=== PATIENT | male | born 2000 | race Caucasian/White ===

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

== ENCOUNTER 2024-04-29 01:37 | Observation (INO) ==
--- NOTE | 2024-04-29 01:56 | Emergency Department Note ---
History of Present Illness General Chief complaint: Abdominal Pain Stated complaint: ABDOMINAL PAIN,NAUSEA,RESP ISSUES Time Seen by Provider: 04/29/24 01:46 History of Present Illness Maximum Pain Intensity: 9 This is a 23-year-old male presenting to the emergency department from home for evaluation of abdominal pain, nausea, vomiting, and diarrhea. 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 Patient symptoms began with some mild nausea throughout the day, however he awoke about 1 hour ago with profound diarrhea and vomiting. Patient is finishing a course of Augmentin for sinus congestion. No recent travel. He took several [id number] antidiarrheal agents, but continues with 9/10 pain. He does have a history of appendectomy when he was a pediatric patient. No fever or chills. Patient has a previous history of alcohol abuse, however he has not had alcohol in the past 3 months after starting a new relationship with his girlfriend. Home Medications Medication Instructions Recorded Confirmed Type benzonatate 200 mg capsule 200 mg PO TID PRN Cough 04/29/24 04/29/24 History buspirone 5 mg tablet 5 mg PO QID PRN Anxiety 04/29/24 04/29/24 History dextroamphetamine-amphetamine ER 10 mg PO QAM 04/29/24 04/29/24 History 10 mg 24hr capsule,extend release escitalopram oxalate 20 mg tablet 20 mg PO QAM 04/29/24 04/29/24 History sumatriptan succinate 25 mg tablet 25 mg PO UD PRN Migraine Headache 04/29/24 04/29/24 History Allergies Allergy/AdvReac Type Severity Reaction Status Date / Time metoclopramide Allergy Mild Verified 11/28/22 08:32 Past Med/Surg History Problem List (Updated 04/29/24 @ 05:27 by Thomas Dean PA-C) Nausea, vomiting, and diarrhea (Acute) Enteritis due to Clostridium difficile (Acute) Acute generalized abdominal pain (Acute) Acute pancreatitis (Acute) Pancreatitis Abdominal pain Anxiety (Chronic) ADD (attention deficit disorder) (Chronic) Nevus of back Benign paroxysmal positional nystagmus (Acute) Surgical History History of appendectomy Family History Mother No problems noted. 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 Feels Safe at Home: Yes Safety Concerns: Feels Safe At This Time Diet: regular caffeine: No Dental Care, Regularly: No Physical Activity Frequency: 3-4 Times per Week Seatbelt Use: always Sunscreen Use: Yes Assistive Devices: None Review of Systems A total of 10 systems reviewed and were otherwise negative Physical Exam Vital Signs Vital Signs - 24 hr 04/29/24 01:38 04/29/24 01:43 04/29/24 01:51 Temperature 36.7 C Temperature Source Temporal Artery Scan Pulse Rate 113 H Pulse Rate from SpO2 Sensor Pulse Rhythm Regular Pulse Strength Normal Respiratory Rate 20 Respiratory Effort / Characteristics Non-Labored Non-Labored Spontaneous Respiratory Depth Normal Normal Respiratory Pattern Regular Blood Pressure 121/80 Blood Pressure Mean 93 Blood Pressure Position Sitting Pulse Oximetry 97 Oxygen Delivery Method Room Air Room Air Room Air Sepsis Recent Fever Within 48 Hours No Sepsis New/Unexplained Change in Mental Status N/A Sepsis Action Taken by Nursing No Action Required 04/29/24 02:39 04/29/24 03:00 04/29/24 03:03 Temperature Temperature Source Pulse Rate 96 H 91 H 99 H Pulse Rate from SpO2 Sensor 93 H 97 H Pulse Rhythm Pulse Strength Respiratory Rate 18 17 Respiratory Effort / Characteristics Respiratory Depth Respiratory Pattern Blood Pressure 132/84 Blood Pressure Mean 100 Blood Pressure Position Pulse Oximetry 96 96 Oxygen Delivery Method Room Air Room Air Sepsis Recent Fever Within 48 Hours Sepsis New/Unexplained Change in Mental Status Sepsis Action Taken by Nursing 04/29/24 03:42 Temperature Temperature Source Pulse Rate 84 Pulse Rate from SpO2 Sensor 85 Pulse Rhythm Pulse Strength Respiratory Rate 17 Respiratory Effort / Characteristics Respiratory Depth Respiratory Pattern Blood Pressure 128/81 Blood Pressure Mean 96 Blood Pressure Position Pulse Oximetry 96 Oxygen Delivery Method Room Air Sepsis Recent Fever Within 48 Hours Sepsis New/Unexplained Change in Mental Status Sepsis Action Taken by Nursing VITALS: Vitals are noted on the nurse's note and reviewed by myself. Vital signs stable. GENERAL: Well-developed, well-nourished, white male, who is uncomfortable appearing and holding an emesis bag HEAD: Normocephalic atraumatic. EARS: External ear normal. External auditory canals clear, tympanic membranes pearly dangelo without erythema or effusion bilaterally. EYES: Pupils equal round and reactive to light and accommodation. Conjunctivae without injection, sclerae without icterus. Extraocular movements intact. NOSE: Patent, turbinates without inflammation or discharge. MOUTH: Mucous membranes moist. Tonsils are not enlarged. Pharynx without erythema, blood, or exudate. Uvula midline. Airway patent. NECK: Supple without nuchal rigidity. No lymphadenopathy. No thyromegaly. Cervical spine is nontender. HEART: Regular rate and rhythm without murmurs gallops or rubs. LUNGS: Clear to auscultation bilaterally without wheezes, rales or rhonchi. No retractions or accessory muscle use. ABDOMEN: Positive normal bowel sounds x 4. Soft, nontender, without masses or organomegaly. No guarding or rebound tenderness. MUSCULOSKELETAL: No muscle atrophy, erythema, or edema noted. Full range of motion in all extremities. Course Administered Medications Lyon Syrup (Lyon Syrup 5 Ml Udp) 5 ml PO Q6 SARAHI Stop: 05/09/24 04:59 Last Admin: 04/29/24 05:32 Dose: 5 ml Documented By: CORETTA Lactated Ringer's (Lr) 1,000 mls @ 200 mls/hr IV .Q5H ONE Stop: 04/29/24 10:04 Last Admin: 04/29/24 05:33 Dose: 200 mls/hr Documented By: CORETTA Vancomycin HCl (Vancomycin Hcl 125 Mg/2.5ml Soln) 125 mg PO Q6 SARAHI; Protocol Stop: 05/09/24 04:59 Last Admin: 04/29/24 05:33 Dose: 125 mg Documented By: CORETTA Discontinued Medications Sodium Chloride (Nss) 1,000 mls @ 999 mls/hr IV .Q1H1M ONE Stop: 04/29/24 02:51 Last Infusion: 04/29/24 03:07 Dose: Infused Documented By: Admin: 04/29/24 02:06 Dose: 999 mls/hr Documented By: SAMMI Pantoprazole Sodium (Protonix) 40 mg in 10 mls @ 5 mls/min IV NOW ONE Stop: 04/29/24 01:52 Last Admin: 04/29/24 02:06 Dose: 5 mls/min Documented By: SAMMI Sodium Chloride (Nss) 1,000 mls @ 999 mls/hr IV .Q1H1M ONE Stop: 04/29/24 04:22 Last Infusion: 04/29/24 04:57 Dose: Infused Documented By: Admin: 04/29/24 03:27 Dose: 999 mls/hr Documented By: CORETTA Thiamine HCl 100 mg/ Syringe 10 mls @ 2 mls/min IV NOW STA Stop: 04/29/24 04:03 Last Admin: 04/29/24 04:32 Dose: 2 mls/min Documented By: CORETTA Morphine Sulfate (Morphine Sulfate 4 Mg/Ml 1 Ml Carp\Vial) 4 mg IV NOW STA Stop: 04/29/24 01:52 Last Admin: 04/29/24 02:05 Dose: 4 mg Documented By: SAMMI Ondansetron HCl (Ondansetron Inj 2 Mg/Ml 2 Ml Vial) 4 mg IV NOW STA Stop: 04/29/24 01:52 Last Admin: 04/29/24 02:05 Dose: 4 mg Documented By: SAMMI Medical Decision Making Differential Diagnosis Differential diagnosis: Etiologies such as gastroenteritis, food borne illness, infections, appendicitis, diverticulitis, inflammatory bowel disease, obstruction, GI bleed, biliary pathology, cardiac process, intracranial process, as well as others were entertained. Laboratory Data 04/29/24 02:06 04/29/24 02:06 Lab Results 04/29/24 04/29/24 04/29/24 Range/Units 02:06 02:07 02:53 WBC 10.84 H (4.8-10.8) K/ul RBC 4.95 (4.70-6.10) M/uL Hgb 14.0 (14.0-18.0) g/dl Hct 40.6 L (42.0-52.0) % MCV 82.0 (80.0-100.0) fL MCH 28.3 (25.0-34.0) pg MCHC 34.5 (32.0-36.0) g/dL RDW Std Deviation 38.5 (36.4-46.3) fL RDW Coeff of Cristo 12.9 (11.5-14.5) % Plt Count 216 (130-400) K/uL MPV 11.0 (9.4-12.4) fL Immature Gran % (Auto) 0.3 % Neut % (Auto) 77.5 % Lymph % (Auto) 14.1 % [place] % (Auto) 7.0 % Eos % (Auto) 0.6 % Baso % (Auto) 0.5 % Neut # (Auto) 8.41 H (1.40-6.50) K/uL Lymph # (Auto) 1.53 (1.20-3.40) K/uL [place] # (Auto) 0.76 H (0.11-0.59) K/uL Eos # (Auto) 0.06 (0.00-0.50) K/uL Baso # (Auto) 0.05 (0.00-0.20) K/uL Immature Gran # (Auto) 0.03 (0.01-0.20) K/uL Sodium 136 (136-145) mmol/L Potassium 3.5 (3.5-5.1) mmol/L Chloride 103 (98-107) mmol/L Carbon Dioxide 24 (21-32) mmol/L Anion Gap 9 (3-11) BUN 16 (6-23) mg/dl Creatinine 0.84 (0.6-1.4) mg/dl Est Cr Clr Drug Dosing 129.0 ml/min eGFR 126.45 BUN/Creatinine Ratio 19.0 (10-20) Glucose 127 H (70-99(Fasting)) mg/dl Calcium 9.3 (8.6-10.3) mg/dl Magnesium 1.8 (1.7-2.4) mg/dl Total Bilirubin 1.5 H (0.2-1.0) mg/dl AST 19 (13-39) U/L ALT 21 (7-52) U/L Alkaline Phosphatase 57 (34-104) U/L Total Protein 7.2 (6.0-8.3) gm/dl Albumin 4.8 (3.4-5.0) gm/dl Globulin 2.4 L (2.5-4.0) gm/dl Albumin/Globulin Ratio 2.0 (0.9-2) Amylase 264 H (25-115) U/L Lipase 3272 H (11-82) U/L Urine Color Yellow Urine Appearance Clear (Clear) Urine pH 6.0 (4.5-7.5) Ur Specific Temple 1.016 (1.000-1.030) Urine Protein Negative (Negative) Urine Glucose (UA) Negative (Negative) Urine Ketones 1+ H (Negative) Urine Blood Negative (Negative) Urine Nitrite Negative (Negative) Urine Bilirubin Negative (Negative) Urine Urobilinogen Negative (Negative) Ur Leukocyte Esterase 1+ H (Negative) Urine WBC (Auto) 21-50 H (0-5) /hpf Urine RBC (Auto) 0-2 (0-2) /hpf U Hyaline Cast (Auto) 0-2 (0-2) /lpf U Epithel Cells (Auto) 0-2 (0-2) /hpf Urine Bacteria (Auto) None Seen (None Seen) Stl C. cayetanensis PCR Not Detected (NotDetected) Stool Rotavirus A PCR Not Detected (NotDetected) Stl Adenov F 40/41 PCR Not Detected (NotDetected) Stool Astrovirus (PCR) Not Detected (NotDetected) Stool Campylobacter PCR Not Detected (NotDetected) Stl C. diff Tox B Gene Positive Cdiff Gene H (Neg) Stl C.difficile Tox A&B Negative Cdiff Toxin (Negative) Stool Cryptosporidium PCR Not Detected (NotDetected) Stl E.coli Shiga Tox PCR Not Detected (NotDetected) Stl Enterotoxigenic E PCR Not Detected (NotDetected) Stool EPEC (PCR) Not Detected (NotDetected) Stool EAEC (PCR) Not Detected (NotDetected) Stl E. histolytica PCR Not Detected (NotDetected) Stool Giardia Lamblia PCR Not Detected (NotDetected) Stool Salmonella PCR Not Detected (NotDetected) Stool Sapovirus (PCR) Not Detected (NotDetected) Stl P. shigelloides PCR Not Detected (NotDetected) Stl Shigella/EIEC PCR Not Detected (NotDetected) St Y.enterocolitica PCR Not Detected (NotDetected) Stool Vibrio (PCR) Not Detected (NotDetected) Stl Vibrio cholerae PCR Not Detected (NotDetected) Stl Norovirus GI/GII PCR Not Detected (NotDetected) Ethyl Alcohol mg/dL (<10.0) mg/dl Adenovirus (PCR) Not Detected (NotDetected) B. pertussis DNA (PCR) Not Detected (NotDetected) B.parapertussis DNA PCR Not Detected (NotDetected) C. pneumoniae DNA (PCR) Not Detected (NotDetected) Coronavirus OC43 (PCR) Not Detected (NotDetected) Coronavirus HKU1 (PCR) Not Detected (NotDetected) Coronavirus 229E (PCR) Not Detected (NotDetected) SARS-CoV-2 (PCR) Not Detected (NotDetected) Coronavirus NL63 (PCR) Not Detected (NotDetected) Human Metapneumovir PCR Not Detected (NotDetected) Influenza Type A (PCR) Not Detected (NotDetected) Influenza Type B (PCR) Not Detected (NotDetected) M. pneumoniae (PCR) Not Detected (NotDetected) Parainfluenza 1 (PCR) Not Detected (NotDetected) Parainfluenza 2 (PCR) Not Detected (NotDetected) Parainfluenza 3 (PCR) Not Detected (NotDetected) Parainfluenza 4 (PCR) Not Detected (NotDetected) RSV (PCR) Not Detected (NotDetected) Entero/Rhino (PCR) Not Detected (NotDetected) 04/29/24 Range/Units 03:16 WBC (4.8-10.8) K/ul RBC (4.70-6.10) M/uL Hgb (14.0-18.0) g/dl Hct (42.0-52.0) % MCV (80.0-100.0) fL MCH (25.0-34.0) pg MCHC (32.0-36.0) g/dL RDW Std Deviation (36.4-46.3) fL RDW Coeff of Cristo (11.5-14.5) % Plt Count (130-400) K/uL MPV (9.4-12.4) fL Immature Gran % (Auto) % Neut % (Auto) % Lymph % (Auto) % [place] % (Auto) % Eos % (Auto) % Baso % (Auto) % Neut # (Auto) (1.40-6.50) K/uL Lymph # (Auto) (1.20-3.40) K/uL [place] # (Auto) (0.11-0.59) K/uL Eos # (Auto) (0.00-0.50) K/uL Baso # (Auto) (0.00-0.20) K/uL Immature Gran # (Auto) (0.01-0.20) K/uL Sodium (136-145) mmol/L Potassium (3.5-5.1) mmol/L Chloride (98-107) mmol/L Carbon Dioxide (21-32) mmol/L Anion Gap (3-11) BUN (6-23) mg/dl Creatinine (0.6-1.4) mg/dl Est Cr Clr Drug Dosing ml/min eGFR BUN/Creatinine Ratio (10-20) Glucose (70-99(Fasting)) mg/dl Calcium (8.6-10.3) mg/dl Magnesium (1.7-2.4) mg/dl Total Bilirubin (0.2-1.0) mg/dl AST (13-39) U/L ALT (7-52) U/L Alkaline Phosphatase (34-104) U/L Total Protein (6.0-8.3) gm/dl Albumin (3.4-5.0) gm/dl Globulin (2.5-4.0) gm/dl Albumin/Globulin Ratio (0.9-2) Amylase (25-115) U/L Lipase (11-82) U/L Urine Color Urine Appearance (Clear) Urine pH (4.5-7.5) Ur Specific [place] (1.000-1.030) Urine Protein (Negative) Urine Glucose (UA) (Negative) Urine Ketones (Negative) Urine Blood (Negative) Urine Nitrite (Negative) Urine Bilirubin (Negative) Urine Urobilinogen (Negative) Ur Leukocyte Esterase (Negative) Urine WBC (Auto) (0-5) /hpf Urine RBC (Auto) (0-2) /hpf U Hyaline Cast (Auto) (0-2) /lpf U Epithel Cells (Auto) (0-2) /hpf Urine Bacteria (Auto) (None Seen) Stl C. cayetanensis PCR (NotDetected) Stool Rotavirus A PCR (NotDetected) Stl Adenov F 40/41 PCR (NotDetected) Stool Astrovirus (PCR) (NotDetected) Stool Campylobacter PCR (NotDetected) Stl C. diff Tox B Gene (Neg) Stl C.difficile Tox A&B (Negative) Stool Cryptosporidium PCR (NotDetected) Stl E.coli Shiga Tox PCR (NotDetected) Stl Enterotoxigenic E PCR (NotDetected) Stool EPEC (PCR) (NotDetected) Stool EAEC (PCR) (NotDetected) Stl E. histolytica PCR (NotDetected) Stool Giardia Lamblia PCR (NotDetected) Stool Salmonella PCR (NotDetected) Stool Sapovirus (PCR) (NotDetected) Stl P. shigelloides PCR (NotDetected) Stl Shigella/EIEC PCR (NotDetected) St Y.enterocolitica PCR (NotDetected) Stool Vibrio (PCR) (NotDetected) Stl Vibrio cholerae PCR (NotDetected) Stl Norovirus GI/GII PCR (NotDetected) Ethyl Alcohol mg/dL < 10.0 (<10.0) mg/dl Adenovirus (PCR) (NotDetected) B. pertussis DNA (PCR) (NotDetected) B.parapertussis DNA PCR (NotDetected) C. pneumoniae DNA (PCR) (NotDetected) Coronavirus OC43 (PCR) (NotDetected) Coronavirus HKU1 (PCR) (NotDetected) Coronavirus 229E (PCR) (NotDetected) SARS-CoV-2 (PCR) (NotDetected) Coronavirus NL63 (PCR) (NotDetected) Human Metapneumovir PCR (NotDetected) Influenza Type A (PCR) (NotDetected) Influenza Type B (PCR) (NotDetected) M. pneumoniae (PCR) (NotDetected) Parainfluenza 1 (PCR) (NotDetected) Parainfluenza 2 (PCR) (NotDetected) Parainfluenza 3 (PCR) (NotDetected) Parainfluenza 4 (PCR) (NotDetected) RSV (PCR) (NotDetected) Entero/Rhino (PCR) (NotDetected) Imaging Data Radiologist's Impression: Abdomen/Pelvis CT 04/29/24 01:52 EXAM: CT abd pelvis wo con CLINICAL HISTORY: abdominal pain, nausea, vomiting and diarrhea, history of appendectomy TECHNIQUE: CT of the abdomen and pelvis was performed, with the following protocol: axial images, and reconstructed coronal and sagittal images. No intravenous contrast was administered. One of the following dose reduction techniques was utilized for this exam: Automated exposure control, adjustment of the mA and/or kV according to patient size, and use of iterative reconstruction. COMPARISON: None. FINDINGS: Abdomen: Liver: Normal in size, and density. No focal lesions, cysts, or masses were identified. Gallbladder and Biliary System: The gallbladder is normal in size and shape. No wall thickening, pericholecystic fluid, or gallstones were identified. Pancreas: Pancreatic head, body, and tail are visualized and appear normal in size and density. No pancreatic masses or calcifications were noted. Spleen: Normal in size, shape, and density. No splenic lesions or masses were identified. Kidneys and Adrenal Glands: Both kidneys are normal in size, shape, and position. No renal calculi or hydronephrosis. Adrenal glands are unremarkable. Pelvis: Urinary Bladder: Normal in contour and wall thickness. Prostate appears unremarkable. Peritoneal and Retroperitoneal Structures: No free fluid or abnormal fluid collections were identified within the abdomen or pelvis. Subcentimetric non-specific mesenteric nodes. Mild mesenteric haziness and congestion near the site of possible intussusception. Bowel: Suggestion of telescoping of a proximal jejunal bowel loop in adjacent Jejunum in right upper quadrant anterior to right kidney with borderline distension of fluid filled proximal small bowel loops in abdomen, measuring 27 mm in maximum thickness.Possibility of intussusception. Fat attenuation is seen in the intussusceptum, this could be due to mesentery versus small lipoma. Post appendicectomy status. Bones and Soft Tissues: Unremarkable. IMPRESSION: 1. Suspicion of a short length transient intussusception in proximal jejunum (limited details due to lack of oral contrast). Advise clinical correlation and follow up. 2. Mild mesenteric haziness and congestion near this site 3. No evidence of bowel obstruction. Electronically signed by Jose Luis Barnhart 04-29-2024 03:46 AM MDM Narrative Physical exam and history were performed. Nursing notes, EMR, and Medication List were personally reviewed. No social concerns were identified as barriers to patients care. History was provided by the Patient. Patient appears to have abdominal pain, nausea, vomiting, and diarrhea. IV access was established and labs were obtained. Patient was hydrated with normal saline and given IV morphine, IV Protonix, and IV Zofran. Stool studies were collected. He was sent to CT scan for imaging of his abdomen and pelvis. Patient blood work is as above and was reviewed. He does not have a significantly elevated white blood cell count, gross anemia, bandemia, or significant electrolyte imbalance. Transaminases are not diagnostic. Lipase is notably elevated at roughly 3000, which would correlate with pancreatitis. His discomfort is epigastric and this would correlate clinically. Stool studies did return POSITIVE for C. difficile. CT scan was performed and independently reviewed by myself and radiology. CT scan may show possible small intussusception. Due to this I did touch base with the on-call surgical team, and patient was evaluated at bedside by Daylin Hill. Please see Ms Hill's dictation for specifics regarding this. On reevaluation the patient does have improvement of his pain and nausea after treatment here in the ER. Escalation of care was considered, and is felt to be necessary. At a minimum the patient has pancreatitis with C. difficile, and may need repeat imaging for possible intussusception. Case was discussed with the on-call hospitalist, Dr. Graham, who agreed to evaluate the patient here in the ER. Please see the hospitalist dictation for further patient course, plan, and disposition. The chart was completed utilizing [employer] Speech Voice Recognition Software. Grammatical errors, random word insertions, pronoun errors, and incomplete sentences are an occasional consequence of this system due to software limitations, ambient noise, and hardware issues. Any formal questions or concerns about the content, text, or information contained within the body of this dictation should be directly addressed to the provider for clarification. Impression & Plan Acute pancreatitis, Acute generalized abdominal pain, Enteritis due to Clostridium difficile, Nausea, vomiting, and diarrhea Discharge Plan Visit Data Chief Complaint: Abdominal Pain Stated Complaint: ABDOMINAL PAIN,NAUSEA,RESP ISSUES ED Provider: Diane Kim ED Midlevel Provider: Thomas Dean Discharge Problem: Acute pancreatitis, Acute generalized abdominal pain, Enteritis due to Clostridium difficile, Nausea, vomiting, and diarrhea Patient Disposition: Admitted As Inpatient Discharge Instructions Interventions: ED Discharge Assessment Last Done: 04/29/24 04:19
[2024-04-29] MEDS: ONDANSETRON INJ 2 MG/ML 2 ML VIAL IV STA (02:05)
[2024-04-29] MEDS: MoRPHine SULFATE 4 MG/ML 1 ML CARP\\VIAL IV STA (02:05)
[2024-04-29] MEDS: SODIUM CHLORIDE 0.9% 1,000 ML IV ONE ×2 (02:06→03:27)
[2024-04-29] MEDS: PANTOprazole 40 MG/10 ML SYR IV ONE (02:06)
[2024-04-29 02:24] LABS: Basophils # (auto) 0.05 K/uL (0.00-0.20); Basophils % (auto) 0.5 %; Eosinophils # (auto) 0.06 K/uL (0.00-0.50); Eosinophils % (auto) 0.6 %; Hematocrit (blood only) 40.6 % (42.0-52.0); Immature Granulocytes # (auto) 0.03 K/uL (0.01-0.20); Immature Granulocytes % (auto) 0.3 %; Lymphocytes # (auto) 1.53 K/uL (1.20-3.40); Lymphocytes % (auto) 14.1 %; Mean Corpuscular Hemoglobin 28.3 pg (25.0-34.0); Mean Corpuscular Hgb Conc 34.5 g/dL (32.0-36.0); Monocytes # (auto) 0.76 K/uL (0.11-0.59); Neutrophils # (auto) 8.41 K/uL (1.40-6.50); Neutrophils % (auto) 77.5 %; Platelet Count 216 K/uL (130-400); RDW Coefficient of Variation 12.9 % (11.5-14.5); RDW Standard Deviation 38.5 fL (36.4-46.3); Red Blood Count 4.95 M/uL (4.70-6.10); White Blood Count 10.84 K/ul (4.8-10.8)
[2024-04-29 02:41] LABS: Calcium 9.3 mg/dl (8.6-10.3); Potassium 3.5 mmol/L (3.5-5.1)
--- OUTSIDE RECORDS SUMMARY | 2024-04-29 02:45 | External Medical Summary | Summary of Care ---
Author Name Unknown Organization [facility] Address [address] [address] Phone [phone] Care Team Providers Care Wireworker Supervisor Name Role Phone JuneAndrei MD Primary Care Provider [phone] Reason for Visit * Reason Onset Date Comments Medication Problem 04/17/2024 Pre Cert/Prior Auth 04/17/2024 Encounter Details Date Type Department Care Team (Late st Contact Info) Description 04/17/2024 Telephone [facility] Andrea Armenta [address] [place] [phone] Andrei Farris MD [address] [place] [id number] Medication Problem; Pre Cert/Prior Auth Allergies Active Allergy Reactions Criticality Noted Date Comments Metoclopramide 02/23/2002 reglan, rapid eye movement documented as of this encounter (statuses as of 04/23/2024) Medications traZODone HCl 100 MG Oral Tablet (Desyrel)Indicatio ns:Primary insomnia Take 1 Tablet by mouth at bedtime. 90 Tablet 3 01/23/2024 7:43 AM EST 4 Active SUMAtriptan Succinate 25 MG Oral Tablet (Imitrex)Indicatio ns:Migraine without aura and without status migrainosus, not intractable Take one tablet at onset of migraine. May take second tablet 2 hours later if migraine persists. No more than 2 tablets in 24 hours. 10 Tablet 3 4 Active Benzonatate 200 MG Oral CapsuleIndications :Acute cough Take 1 Capsule by mouth 3 times a day as needed for Cough. 50 Capsule 1 5 Active busPIRone HCl 5 MG Oral Tablet (Buspar)Indication s:BEVERLY (generalized anxiety disorder) Take 1 Tablet by mouth 4 times a day as needed (anxiety). 360 Tablet 1 5 Active Escitalopram Oxalate 20 MG Oral Tablet (Lexapro)Indicatio ns:BEVERLY (generalized anxiety disorder) Take 1 Tablet by mouth in the morning. 90 Tablet 3 5 Active Amphetamine-Dextro amphet ER 15 MG Oral Capsule Extended Release 24 HourIndications:At tention or concentration deficit Take 1 Capsule by mouth in the morning. 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 documented as of this encounter (statuses as of 04/23/2024) Resolved Problems Problem Noted Date Diagnosed Date Resolved Date Food insecurity 07/29/2023 02/03/2024 Overview: Per [facility] Protocol Appendicitis 11/28/2005 03/04/2024 Chronic respiratory disease in period 08/14/2002 07/17/2023 Low weight or , 7560-7067 grams 02/23/2002 03/04/2024 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 Overview (12/11/2016): ICD-10 update of inactive term documented as of this encounter (statuses as of 04/23/2024) Immunizations Name Administration Dates Next Due HIB Hep B - HIB Hepatitis B (Comvax) 09/08/2002, 01/26/2002 Hepatitis B, 0-19 yrs 2001 MMR - Measles/Mumps/Rubella Vaccine 10/09/2006,0 09/08/2002 Seasonal Influenza, PF, 6 M & above, IM , (FluLaval or Fluzone) 05/14/2023 TDAP, Age 7 and older, IM (Adacel) 07/26/2014 Varicella Vaccine (Chicken Pox) 10/09/2006,09/08 documented as of this encounter Social History Tobacco Use Types Packs/Day Years Used Date Smoking Tobacco: Former Vaporizer Passive Smoke Exposure: Past Smokeless Tobacco: Never Alcohol Use Standard Drinks/Week Comments Yes 0 (1 standard drink = 0.6 oz pur e alcohol) occas PHQ-2 Answer Date Recorded PHQ Adult Total Score 0 07/17/2023 Hunger Vital Sign Answer Date Recorded Within the past 12 months, y ou worried that your food would run out before you got the money to buy more. Never true 01/09/20 24 Within the past 12 months, t he food you bought just didn't last and you didn't have money to get more. Never true 01/09/2024 Childcare Answer Date Recorded Do you feel overwhelmed with taking care of a child, family member or friend? No 01/09/2024 Does your family need help f inding childcare? (Household - for ages 0-17 years) Not on file 01/09/2024 Clothing Answer Date Recorded Have you been unable to get clothing when it was really needed? No 01/09/2024 Is your family able to get c lothes or diapers when needed? (Household - for ages 0-17 years) Not on file 01/09/2024 Personal Safety Answer Date Recorded Do you feel unsafe or have concerns for your saf ety? No 01/09/2024 Do you have concerns for you r family's safety? (Household - for ages 0-17 years) Not on file 01/09/2024 Utilities Answer Date Recorded Do you have trouble paying y our heating, water, or electric bill? No 01/09/2024 Is your family able to pay t he heat, water, or electric bill? (Household - for ages 0-17 years) Not on file 01/09/2024 Does your family have access to good internet? (Household - for ages 0-17 years) Not on file 01/09/2024 Employment Status Answer Date Recorded Are you unemployed or without regular income? No 01/09/2024 Does the household have a re gular source of income? (Household - for ages 0-17 years) Not on file 01/09/2024 Social Connections Answer Date Recorded How often do you feel lonely or isolated from th ose around you? Never 01/09/2024 Financial Resource Strain Answer Date R ecorded Do you have any trouble payi ng for your medications, or do you think you might in the future? Yes 01/09/2024 Does your family have troubl e paying for medicine? (Household - for ages 0-17 years) Not on file 01/09/2024 Transportation Needs Answer Date Record ed READ ONLY Do you have troubl e getting a ride to medical visits or work? Never True 01/09/2024 Does your family have a hard time getting a ride to doctors visits? (Household - for ages 0-17 years) Not on file 01/09/2024 Has lack of transportation k ept you from medical appointments, meetings, work, or from getting things needed for daily living? Check all that apply. No 01/09/2024 Do you (or your family) have trouble finding or paying for a ride (transportation)? (Household - for ages 0-17 years) Not on file 01/09/2024 Housing Stability Answer Date Recorded Do you currently live in a s helter or have no steady place to sleep at night? No 01/09/2024 READ ONLY Do you think you a re at risk of becoming homeless? No 01/09/2024 Does your family worry about paying for your home or becoming homeless? (Household - for ages 0-17 years) Not on file 1 03/10/2023 Are you homeless or worried that you might be in the future? No 01/09/2024 Are you (or your family) nikki eless or worried that you might be in the future? (Household - for ages 0-17 years) Not on file Food Insecurity Answer Date Recorded Do you need food for this week? No 01/09/2024 Are you able to get enough f ood for your family? (Household - for ages 0-17 years) Not on file 01/09/2024 Does your family need food t his week? (Household - for ages 0-17 years) Not on file 01/09/2024 Do you always have enough fo od for your family? (Household - for ages 0-17 years) Not on file 01/09/2024 Food Insecurity Answer Date Recorded Within the past 12 months, y ou worried that your food would run out before you got the money to buy more. Never true 01/09/20 24 Within the past 12 months, t he food you bought just didn't last and you didn't have money to get more. Never true 01/09/2024 Do you need food for this week? No 01/09/2024 Sex and Gender Information Value Date Recorded Sex Assigned at Male 07/03/2023 8:52 AM EDT Legal Sex Male 5:46 AM EST Gender Identity Male 07/03/2023 8:52 AM EDT Sexual Orientation Straight 07/03/2023 8: 52 AM EDT documented as of this encounter Miscellaneous Notes * Telephone Encounter - Maritza Maldonado CPhT - 04/23/2024 4:04 PM EST Pt calling to check on status of PA Amphetamine-Dextroamphet ER 15 MG Oral Capsule Extended [id number] Hour . Caller can be reached at [phone]. Thank you, Maritza Maldonado CPhT Capacitor Pack Press Operator II [facility] 04/23/2024,4:04 PM * Telephone Encounter - Lovely Pinzon LPN - 04/23/2024 1:09 PM EST Chart notes were submitted with prior auth * Telephone Encounter - Osiris Ring OSA - 04/22/2024 2:12 PM EST Pt is calling back in asking for the chart notes and any testing that is related to this need for meds Fax Number is the one that been used. * Telephone Encounter - Lovely Pinzon LPN - 04/21/2024 3:52 PM EST Prior auth faxed. * Telephone Encounter - Kemi Sands PHARM Tech - 04/21/2024 2:49 PM EST Pt is calling regarding PA for Amphetamine-Dextroamphet ER 15 MG Oral Capsule Extended Release 24 Hour Pt states that he sent picture and information of his insurance card. Pt asking if PA has been submitted. His insurance states they did not receive yet. Pt can be reached at: [phone] Pt would like a call back. Thank you, Kemi Sands Capacitor Pack Press Operator I [facility] 04/21/2024,2:50 PM * Telephone Encounter - Vielka Ovalles LPN - 04/20/2024 2:57 PM EST Patient called and states that he will submit a picture of his insurance through my. * Telephone Encounter - Emilia Londono OSA - 04/20/2024 2:51 PM EST Patient asking to speak to clinic nurse. Transferred. * Telephone Encounter - Radha Rivera PHARM Tech - 04/20/2024 11:02 AM EST Please see 04/11/24 telephone encounter regarding prior auth. Office will need to submit prior auth for Amphetamine-Dextroamphet ER 15 MG Oral Capsule Extended Release 24 Hour just because insurance cannot be submitted through cover my meds. A form needs to be filled out that needs to be signed by the provider and faxed to insurance with required documents. Thank you, Radha Rivera lead maintenance technician Loan Supervisor III [facility] 04/20/2024,11:06 AM * Telephone Encounter - Andrei Farris MD - 04/18/2024 11:53 AM EST Can we check on prior auth for this. Thanks. Andrei Farris MD * Telephone Encounter - Ara Mckeon OSA - 04/17/2024 1:59 PM EST Pt called today 04/17/24 asking to see if his prior auth for a medication that he needs a refill on.Pt states the pharmacy needs a prior auth before refilling the medicine. 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 The med he needs refilled is Amphetamine-Dextroamphet ER 15 MG. documented in this encounter Plan of Treatment Upcoming Encounters Date Type Department Care Team (Late st Contact Info) Description 07/17/2024 2:00 PM EDT Office Visit [facility] Rj Armenta [address] [place] [phone] Andrei Farris MD [address] [place] [id number] Health Maintenance Due Date Last Done Comments COVID-19 Vaccine ( season) 2023 02/14/2021, 07/02/2020, 06/04/2020 Depression Screening 07/16/2024 07/17/2023 DTap/Tdap Vaccines (7 - Td or Tdap) 07/26/2024 07/26/2014, 10/09/2006, 03/18/2003, Additional history exists Hepatitis B Vaccine Completed 09/08/2002, 01/26/2002, 2001 HPV (Gardasil) Vaccine Completed 10/10/2015, 2014 MENINGOCOCCAL (MENACTRA/MENVEO) Completed 04/25/2018, 07/26/2014 Meningitis B Vaccine (Bexsero/Trumemba) Completed 03/28/2020, 04/25/2018 Influenza Vaccine (FLU shot) Completed 02/2023, 05/14/2023, 03/28/2020, Additional history exists Pneumococcal Vaccine: Pediatrics (0 to 5 Years) and At-Risk Patients (6 to 18 Years and 19+ Years) Aged Out No longer eligib le based on patient's age to complete this topic documented as of this encounter Medical Devices Not on filedocumented as of this encounter Care Teams Wireworker Supervisor Relationship Specialty Start Date End Date June, Andrei Gautam MD PCP - General Family Medicine 07/12/23 documented as of this encounter
--- OUTSIDE RECORDS SUMMARY | 2024-04-29 02:45 | External Medical Summary | Summary of Care ---
Author Name Unknown Organization [facility] Address [address] [facility] [place] [address] Phone [phone] Care Team Providers Care Ruby Software Developer Name Role Phone JuneLizbeth MD Primary Care Provider [phone] Reason for Visit * Reason Onset Date Comments Medication Refill 04/11/2024 Medication Pre-auth 04/11/2024 Encounter Details Date Type Department Care Team (Late st Contact Info) Description [facility] [address] [phone] Lizbeth Wilburn MD [address] [place] [address] Medication Refill; Medication Pre-auth Allergies Active Allergy Reactions Criticality Noted Date Comments Metoclopramide 02/23/2002 reglan, rapid eye movement documented as of this encounter (statuses as of 04/23/2024) Medications traZODone HCl 100 MG Oral Tablet (Desyrel)Indicati ons:Primary insomnia Take 1 Tablet by mouth at bedtime. 90 Tablet 3 01/23/2024 7:43 AM EST 4 Active SUMAtriptan Succinate 25 MG Oral Tablet (Imitrex)Indicati ons:Migraine without aura and without status migrainosus, not intractable Take one tablet at onset of migraine. May take second tablet 2 hours later if migraine persists. No more than 2 tablets in 24 hours. 10 Tablet 3 4 Active Benzonatate 200 MG Oral CapsuleIndication s:Acute cough Take 1 Capsule by mouth 3 times a day as needed for Cough. 50 Capsule 1 5 Active busPIRone HCl 5 MG Oral Tablet (Buspar)Indicatio ns:BEVERLY (generalized anxiety disorder) Take 1 Tablet by mouth 4 times a day as needed (anxiety). 360 Tablet 1 5 Active Escitalopram Oxalate 20 MG Oral Tablet (Lexapro)Indicati ons:BEVERLY (generalized anxiety disorder) Take 1 Tablet by mouth in the morning. 90 Tablet 3 5 Active Amphetamine-Dextr oamphet ER 15 MG Oral Capsule Extended Release 24 HourIndications:A ttention or concentration deficit Take 1 Capsule by mouth in the morning. 30 Capsule 5 Active Amphetamine-Dextr oamphet ER 10 MG Oral Capsule Extended Release 24 Hour (Adderall XR)Indications:At tention or concentration deficit Take 1 Capsule by mouth in the morning. Do not cut, crush or chew. 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 documented as of this encounter (statuses as of 04/23/2024) Resolved Problems Problem Noted Date Diagnosed Date Resolved Date Food insecurity 07/29/2023 02/03/2024 Overview: Per [facility] Protocol Appendicitis 11/28/2005 03/04/2024 Chronic respiratory disease in period 08/14/2002 07/17/2023 Low weight or , 9400-6105 grams 02/23/2002 03/04/2024 Other disorders of psychological [...] encounter Miscellaneous Notes * Telephone Encounter - Lovely Pinzon LPN - 04/22/2024 3:53 PM EST Form was faxed yesterday, received confirmation at 4pm * Telephone Encounter - Luba Last LPN - 04/22/2024 2:58 PM EST Have you received this form? * Telephone Encounter - Ana Schaefer OSA - 04/21/2024 3:22 PM EST Called to check status and Medical Assistance states they still didn't receive form below from provider's office. Sending message to the office * Telephone Encounter - Valerie Simons CPhT - 04/20/2024 1:48 PM EST Patient calling to check on status of PA for rx Amphetamine-Dextroamphet ER 15 MG Oral Capsule Extended Release 24 Hour . Pt stated he was going to reach out to his insurance regarding the forms that needed to be faxed over, in order for his PA to be approved. Thank you, Valerie Simons Beater Worker Helper II [facility] 04/20/2024, 1:48 PM * Telephone Encounter - Patricio Vivar career and transition teacher - 04/17/2024 1:51 PM EST Pt calling to check on status of PA. Caller can be reached at [phone] . Thank you, Patricio Vivar Oil Lease Buyer [facility]) [address] [place] [address], [address] [place] [phone] 04/17/2024, 1:51 PM * Telephone Encounter - Carolina Padilla CPhT - 04/17/2024 8:07 AM EST Pt calling to check on status of PA. Caller can be reached at [phone]. Advised PA was in progress. Thank you, Carolina Padilla CPhT Heel Cover Softener II [facility]) 04/17/2024,8:07 AM * Telephone Encounter - Mere Rosales CPhT - 04/16/2024 3:48 PM EST Patient calling to check on status of prior auth Thank you, Mere Rosales Beater Worker Helper II [facility]) (formerly Telepharmacy) 04/16/2024 3:49 PM * Telephone Encounter - Valerie Simons CPhT - 04/16/2024 3:34 PM EST Patient calling to check on status of PA for Amphetamine-Dextroamphet ER 15 MG Oral Capsule Extended Release 24 Hour. Informed pt PA was still in process. Caller can be reached at [phone] . Thank you, Valerie Simons Beater Worker Helper II [facility]) 04/16/2024, 3:34 PM * Telephone Encounter - Radha Rivera PHARM Tech - 04/16/2024 9:46 AM EST Images from the original note were not included. Called [facility] and they advised original PA was denied due to needing: Documentation of a diagnosis of ADHD A thorough drug and alcohol history for pt and family and social history New PA should be faxed to them instead of using CMM as they stated [facility]MM does not always have the most up to date form. For this medication we need the Stimulants and Related Agents Form that can be found on [place]://www.[place]agencies/dhs/resources/pharmacy-services/imswoiex-gpzgkdtc-el x-forms.html.They also faxed denial rationale and form to office. They will also need clinical documentation and office visit notes faxed to them with the filled outform to [phone]. The form requires a providers signature. Below explains from the form what isneeded for approval: Sending high priority due to denial and pt request. They stated turn around time for determination is 24 hours. Thank you, Radha Rivera CPhT Beater Worker Helper III [facility]) 04/16/2024,10:05 AM * Telephone Encounter - Radha Rivera career and transition teacher - 04/15/2024 6:05 PM EST Pt checking status, advised pt additional info is being sent. Will call ins in AM (they are only open 8430) at to verify exactly what they need and the fax number (there is a fax number in [facility] but pt also provided fax number [phone]). Per previous note ins is looking for diagnosis codes and drug and alcohol history. Thank you, Radha Rivera CPhT Beater Worker Helper III [facility]) 04/15/2024,6:07 PM * Telephone Encounter - Patricio Vivar career and transition teacher - 04/15/2024 3:33 PM EST Pt called in stating that insurnace is requiring diagnosis codes as well as drug and alcohol history. Please advise. Thank you, Patricio Vivar Oil Lease Buyer [facility] ([facility]) [address] [place] [address], [address] [phone] 04/15/2024, 3:33 PM * Telephone Encounter - Feli Bauer CPhT - 04/15/2024 11:15 AM EST Daily club calling for last and next OV dates. Thank you, Feli Bauer CPhT II Beater Worker Helper [facility]) 04/15/2024, 11:16 AM * Telephone Encounter - Radha Rivera career and transition teacher - 04/14/2024 5:23 PM EST Submitted information in previous note via [facility] (Simon: [id number]).. Awaiting payer response. We will follow-up with insurance starting 04/16. Per [facility] request, if no decision is received from insurance by 04/20, we will route back to the [facility] after clarifying with the pharmacy that the claim is still not processing. Thank you, Radha Rivera [facility] Beater Worker Helper III [facility] ([facility]) 04/14/2024,5:23 PM * Telephone Encounter - Mandie Millan, [facility] - 04/14/2024 12:27 PM EST Please submit PA. Include the following documentation: OV 03/25/24 OV 07/17/23 Narcotic med agreement 03/04/24 in media Please copy and paste the following information into PA form: Dose increase PMDP Last reviewed by Lizbeth Wilburn MD on 04/13/2024 at 5:13 PM What other drugs is there medical record documentation of therapeutic failure on, intolerance to, or contraindication to for this condition? methylphenidate Alfonso as urgent: No Diagnosis/ICD-10 Code(s): R41.840; F90.0 If instantaneous decision is not received after submitting prior auth, please continue to follow upon this and route back to the [facility] pool if no decision is made by the insurance by 04/20, after clarifying with the pharmacy that the claim is still not processing. If PA is denied, please also route back to [facility] pool. Thank you, Mandie Millan PharmD, [facility] Clinical Pharmacist [facility]) 04/14/24 12:27 PM [phone] * Telephone Encounter - Sissy Rees PHARM Tech - 04/14/2024 10:14 AM EST This is a new PA request. Upon review of this prior authorization request, I verified this request is appropriate. This is prescribed by a department for which [facility] is authorized to review prior authorizations This is not a duplicate encounter regarding the same prior authorization The patient is planning to use insurance The insurance information listed in previous note is correct and the plan that is requiring prior authorization The insurance does not cover either brand or generic forms of this script as written without prior authorization The insurance does not cover any NDCs of this script without prior authorization Pharmacy benefits are not in chart (unable to verify coverage via RX Estimate tool) Of note, there is nothing currently pending in [facility] for this request. Please advise how to proceed. Thanks, Sissy Rees Beater Worker Helper III [facility] ([facility]) 04/14/2024,10:14 AM * Telephone Encounter - Cassi Dimas CPhT - 04/14/2024 9:46 AM EST Pt is asking high priority stating he needs medication as urgently as possible. Patient calling to inform doctor that the patient's insurance will not pay for this medication without a completed prior authorization. Did confirm this information with the pharmacy. Pt's current insurance information is as follows: Patient name: Rashi Forrest ID number: [id number] BIN number: [id number] PCN number: [id number] Group number: n/a Subscriber name: Rashi Forrest Primary or Secondary Insurance:Primary Medication: Amphetamine-Dextroamphet ER 15 MG Oral Capsule Extended Release 24 Hour Reason for Request: PA is required Pharmacy and phone number: [facility] [address] [place] [address] Rx plan and phone number: Medicaid [phone] Is this a new medication for the patient? No. How did the patient obtain the medication on the lastfill? It was a different dose or frequency the last time it was filled. What alternative medications does the pharmacy have in stock?: n/a Thank you, Cici Dimas CPhT Beater Worker Helper II [facility]) 04/14/2024,9:46 AM * Telephone Encounter - Lizbeth Wilburn MD - 04/13/2024 5:14 PM ESTSigned Prescriptions: Disp Refills Amphetamine-Dextroamphet ER 15 MG Oral Cap*30 Cap*0 Sig: Take 1 Capsule by mouth in the morning.Authorizing Provider: LIZBETH WILBURNRefused Prescriptions: Disp Refills Amphetamine-Dextroamphet ER 10 MG Oral Cap*30 Cap*0 Sig: Take 1 Capsule by mouth in the morning. Do not cut, crush or chew.Refused By: OBINNA JAMIL forRefusal: Other (comment below) * Telephone Encounter - Laly Conde LPN - 04/13/2024 2:32 PM EST Patient calling in to check on the status of his Adderrall increase request. Patient sattres he feels it will be more beneficial for him at the 15 MG dose instead of the current 10 MG dose he is taking. Please advise. Order pended if appropriate. 07/17/2024 03/25/2024 (in office), Visit date not found (telemedicine) Pending Prescriptions: Disp Refills Amphetamine-Dextroamphet ER 15 MG Oral Ca*30 Cap*0 Sig: Take 1 Capsule by mouth in the morning. Refused Prescriptions: Disp Refills Amphetamine-Dextroamphet ER 10 MG Oral Cap*30 Cap*0 Sig: Take 1 Capsule by mouth in the morning. Do not cut, crush or chew. Refused By: OBINNA JAMIL Reason for Refusal: Other (comment below) * Telephone Encounter - Maribel Smith PHARM Tech - 04/13/2024 2:29 PM EST Pt calling in regarding Adderall. Attempted to help pt with request, pt did not want to speak with me, and asked for the nurses in the office 3 times. Warm transferred to clinic nurse line to speak with Laly. Thank you, Maribel Smith Oil Lease Buyer I [facility]) 04/13/2024,2:30 PM * Telephone Encounter - Obinna Jamil, [facility] - 04/13/2024 12:53 PM EST Refused Prescriptions: Disp Refills Amphetamine-Dextroamphet ER 10 MG Oral Cap*30 Cap*0 Sig: Take 1 Capsule by mouth in the morning. Do not cut, crush or chew. Refused By: OBINNA JAMIL Reason for Refusal: Other (comment below) * Telephone Encounter - Obinna Jamil [facility] - 04/13/2024 12:53 PM EST Refused Prescriptions: Disp Refills Amphetamine-Dextroamphet ER 10 MG Oral Cap*30 Cap*0 Sig: Take 1 Capsule by mouth in the morning. Do not cut, crush or chew. Refused By: OBINNA JAMIL Reason for Refusal: Other (comment below) * Telephone Encounter - Obinna Jamil [facility] - 04/13/2024 12:52 PM EST Pt calling in to request a dose change on their Amphetamine-Dextroamphet ER. Current dose: 10mg Requested dose: 15mg Reason for request: Pt asking for increased dose Preferred pharmacy: [facility] [address] [place] [address] [place] Patient unwilling to speak with pharmacist at this time. Routing to pharmacist pool to advise. * Telephone Encounter - Obinna Jamil RP - 04/13/2024 12:52 PM EST I have reviewed the patients controlled substance dispensing history in the Prescription Drug Monitoring Program in compliance with the [facility] regulations before prescribing a controlled substance. PDMP checked on 04/13/2024. Pending Prescriptions: Disp Refills Amphetamine-Dextroamphet ER 10 MG Oral Ca*30 Cap*0 Sig: Take 1 Capsule by mouth in the morning. Do not cut, crush or chew. Last Visit: 03/25/2024 (in office), Visit date not found (telemedicine) Next Visit: 07/17/2024 Date medication was last filled: 03/04 Date medication is due for refill: 04/04 Pharmacy: [facility] [address] [place] [address] [place] Is this request for a controlled substance? Yes and Urine Drug Screen Not completed Toxicology results: No results found for this or any previous visit. Please approve if appropriate. Thanks, Obinna Jamil PharmD Clinical Pharmacist [facility]) [phone] 04/13/2024,12:52 PM * Telephone Encounter - Angely Live career and transition teacher - 04/13/2024 10:13 AM EST Pt calling to check on status of rx. Caller can be reached at [phone]. Thanks, Angely Live Oil Lease Buyer [facility]) 04/13/2024,10:13 AM * Telephone Encounter - Jeff Desir PHARM Tech - 04/11/2024 2:43 PM EST Pt calling in to request a dose change on their Amphetamine-Dextroamphet ER. Current dose: 10mg Requested dose: 15mg Reason for request: Pt asking for increased dose Preferred pharmacy: [facility] [address] [place] [address] [place] Patient unwilling to speak with pharmacist at this time. Routing to pharmacist pool to advise. Jeff Santiago CPht Beater Worker Helper III [facility] 04/11/2024,2:43 PM documented in this encounter Plan of Treatment Upcoming Encounters Date Type Department Care Team (Late st Contact Info) Description 07/17/2024 2:00 PM EDT Office Visit [facility] [address] [facility] [place] [phone] June, Lizbeth Gautam MD [address] [facility] [address] Health Maintenance Due Date Last Done Comments [...] Not on filedocumented as of this encounter Visit Diagnoses Diagnosis Attention or concentration deficit- Primary documented in this encounter Care Teams Ruby Software Developer Relationship Specialty Start Date End Date June, Lizbeth Gautam MD PCP - General Family Medicine 07/12/23 documented as of this encounter
--- OUTSIDE RECORDS SUMMARY | 2024-04-29 02:45 | External Medical Summary | Summary of Care ---
Author Name Unknown Organization [facility] Address [address] [address] Phone [phone] Care Team Providers Care Fruit Or Nut Crops Farm Manager Name Role Phone JuneAndrei MD Primary Care Provider [phone] Reason for Visit * Reason Onset Date Comments Medication Problem 04/17/2024 Pre Cert/Prior Auth 04/17/2024 Encounter Details Date Type Department Care Team (Late st Contact Info) Description 04/17/2024 Telephone [facility] Andrea Armenta [address] [place] [phone] Andrei Farris MD [address] [place] [address] Medication Problem; Pre Cert/Prior Auth Allergies Active [...] Date Food insecurity 07/29/2023 02/03/2024 Overview: Per [facility] Protocol Appendicitis 11/28/2005 03/04/2024 Chronic respiratory disease in period 08/14/2002 07/17/2023 Low weight or , 0896-4845 grams 02/23/2002 03/04/2024 Other disorders of psychological [...] Amphetamine-Dextroamphet ER 15 MG Oral Capsule Extended [id number] Hour . Caller can be reached at [phone]. Thank you, Maritza Maldonado CPhT Refinery Process Engineer II [facility] ([facility]) (Formerly [...] receive yet. Pt can be reached at: [phone] Pt would like a call back. Thank you, Kemi Sands Refinery Process Engineer I [facility]) 04/21/2024,2:50 [...] with required documents. Thank you, Radha Rivera cell lead Microarray Analyst III [facility]) 04/20/2024,11:06 [...] Description 07/17/2024 2:00 PM EDT Office Visit [facility] Rj Arment[address] [place] [phone] Andrei Farris MD [address] [place] [address] Health Maintenance Due Date Last Done Comments [...] filedocumented as of this encounter Care Teams Fruit Or Nut Crops Farm Manager Relationship Specialty Start Date End Date June, Andrei Gautam MD PCP - General Family Medicine 07/12/23 documented as of this encounter
--- OUTSIDE RECORDS SUMMARY | 2024-04-29 02:45 | External Medical Summary | Summary of Care ---
Author Name Unknown Organization [facility] Address [address] [facility] [place] [address] Phone [phone] Care Team Providers Care Party Plan Salesperson Name Role Phone JuneLizbeth MD Primary Care Provider [phone] Reason for Visit * Reason Onset Date Comments Medication Refill 04/11/2024 Medication Pre-auth 04/11/2024 Encounter Details Date Type Department Care Team (Late st Contact Info) Description [facility] [address] [place] [phone] JuneLizbeth MD [address] [place] [address] Medication Refill; Medication Pre-auth Allergies Active Allergy Reactions Criticality Noted Date Comments Metoclopramide 02/23/2002 reglan, rapid eye movement documented as of this encounter (statuses as of 04/22/2024) Medications traZODone HCl 100 MG Oral Tablet [...] as of this encounter (statuses as of 04/22/2024) Active Problems Problem Noted Date Diagnosed Date Attention deficit hyperactiv ity disorder (ADHD), predominantly inattentive type 03/04/2024 BEVERLY (generalized anxiety disorder) 10/09/2023 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 documented as of this encounter (statuses as of 04/22/2024) Resolved Problems Problem Noted Date Diagnosed Date Resolved Date Food insecurity 07/29/2023 02/03/2024 Overview: Per [facility] Protocol Appendicitis 11/28/2005 03/04/2024 Chronic respiratory disease in period 08/14/2002 07/17/2023 Low weight or , 6889-8180 grams 02/23/2002 03/04/2024 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 Thank you, Valerie Simons Piecer Up II [facility] ([facility]) 04/20/2024, 1:48 PM * Telephone Encounter - Patricio Vivar reporting consultant - 04/17/2024 1:51 PM EST Pt calling to check on status of PA. Caller can be reached at [phone] . Thank you, Patricio Vivar Four Horse Hitch Driver [facility] ([facility]) [address] [place] [address], [address] [place] [phone] 04/17/2024, 1:51 PM * Telephone Encounter - Carolina Padilla CPhT - 04/17/2024 8:07 AM EST Pt calling to check on status of PA. Caller can be reached at [phone]. Advised PA was in progress. Thank you, Carolina Padilla CPhT Tower Air Traffic Control Specialist II [facility] ([facility]) 04/17/2024,8:07 AM * Telephone Encounter - Mere Rosales CPhT - 04/16/2024 3:48 PM EST Patient calling to check on status of prior auth Thank you, Mere Rosales Piecer Up II [facility] ([facility]) (formerly Telepharmacy) 04/16/2024 3:49 PM * Telephone Encounter - Valerie Simons CPhT - 04/16/2024 3:34 PM EST Patient calling to check on status of PA for Amphetamine-Dextroamphet ER 15 MG Oral Capsule Extended Release 24 Hour. Informed pt PA was still in process. Caller can be reached at [phone] . Thank you, Valerie Simons Piecer Up II [facility] ([facility]) 04/16/2024, 3:34 PM * Telephone Encounter - Radha Rivera PHARM Tech - 04/16/2024 9:46 AM EST Images from the original note were not included. Called [facility] and they advised original PA was denied [...] Agents Form that can be found on [place]://www.[place].gov[place]/dhs/resources/pharmacy-services/xpmrqcvc-pgancsan-kj x-forms.html.They also faxed denial rationale and form to office. They will also need clinical documentation and office visit notes faxed to them with the filled outform to [phone]. The form requires a providers signature. Below explains from the form what isneeded for approval: Sending high priority due to denial and pt request. They stated turn around time for determination is 24 hours. Thank you, Radha Rivera CPhT Piecer Up III [facility] ([facility]) 04/16/2024,10:05 AM * Telephone Encounter - Radha Rivera reporting consultant - 04/15/2024 6:05 PM EST Pt checking status, advised pt additional info is being sent. Will call ins in AM (they are only open 8430) at to verify exactly what they need and the fax number (there is a fax number in [facility] but pt also provided fax number [phone]). Per previous note ins is looking for diagnosis codes and drug and alcohol history. Thank you, Radha Rivera CPhT Piecer Up III [facility] ([facility]) 04/15/2024,6:07 PM * Telephone Encounter - Patricio Vivar reporting consultant - 04/15/2024 3:33 PM EST Pt called in stating that insurnace is requiring diagnosis codes as well as drug and alcohol history. Please advise. Thank you, Patricio Vivar Four Horse Hitch Driver [facility] ([facility]) [address] [place] [address], [address] [phone] 04/15/2024, 3:33 PM * Telephone Encounter - Feli Bauer CPhT - 04/15/2024 11:15 AM EST Daily club calling for last and next OV dates. Thank you, Feli Bauer CPhT II Piecer Up [facility] ([facility]) 04/15/2024, 11:16 AM * Telephone Encounter - Radha Rivera reporting consultant - 04/14/2024 5:23 PM EST Submitted information in previous note via [facility] (Simon: [id number]).. Awaiting payer response. We will follow-up with insurance starting 04/16. Per [facility] request, if no decision is received from insurance by 04/20, we will route back to the [facility] after clarifying with the pharmacy that the claim is still not processing. Thank you, Radha Rivera [facility] Piecer Up III [facility] ([facility]) 04/14/2024,5:23 PM * Telephone Encounter - Mandie Millan, [facility] - 04/14/2024 12:27 PM EST Please submit [...] upon this and route back to the [facility] pool if no decision is made by the insurance by 04/20, after clarifying with the pharmacy that the claim is still not processing. If PA is denied, please also route back to [facility] pool. Thank you, Manide Millan PharmD, SOL Clinical Pharmacist [facility] ([facility]) 04/14/24 12:27 PM [phone] * Telephone Encounter - Sissy Rees PHARM Tech - 04/14/2024 10:14 AM EST This is a new PA request. Upon review of this prior authorization request, I verified this request is appropriate. This is prescribed by a department for which [facility] is authorized to review prior authorizations [...] note, there is nothing currently pending in [facility] for this request. Please advise how to proceed. Thanks, Sissy Rees Piecer Up III [facility] ([facility]) 04/14/2024,10:14 [...] follows: Patient name: Rashi Forrest ID number: [id number] BIN number: [id number] PCN number: [id number] Group number: n/a Subscriber name: Rashi Forrest Primary or Secondary Insurance:Primary Medication: Amphetamine-Dextroamphet ER 15 MG Oral Capsule Extended Release 24 Hour Reason for Request: PA is required Pharmacy and phone number: [facility] [address] [place] [address] Rx plan and phone number: Medicaid [phone] Is this a new medication for the patient? No. How did the patient obtain the medication on the lastfill? It was a different dose or frequency the last time it was filled. What alternative medications does the pharmacy have in stock?: n/a Thank you, Cici Dimas CPhT Piecer Up II [facility] ([facility]) 04/14/2024,9:46 [...] speak with Laly. Thank you, Maribel Smith Four Horse Hitch Driver I [facility] ([facility]) 04/13/2024,2:30 PM * Telephone Encounter - Obinna Jamil, [facility] - 04/13/2024 12:53 PM EST Refused Prescriptions: Disp Refills Amphetamine-Dextroamphet ER 10 MG Oral Cap*30 Cap*0 Sig: Take 1 Capsule by mouth in the morning. Do not cut, crush or chew. Refused By: OBINNA JAMIL Reason for Refusal: Other (comment below) * Telephone Encounter - Obinna Jamil [facility] - 04/13/2024 12:53 PM EST Refused Prescriptions: Disp Refills Amphetamine-Dextroamphet ER 10 MG Oral Cap*30 Cap*0 Sig: Take 1 Capsule by mouth in the morning. Do not cut, crush or chew. Refused By: OBINNA JAMIL Reason for Refusal: Other (comment below) * Telephone Encounter - Obinna Jamil [facility] - 04/13/2024 12:52 PM EST Pt calling in to request a dose change on their Amphetamine-Dextroamphet ER. Current dose: 10mg Requested dose: 15mg Reason for request: Pt asking for increased dose Preferred pharmacy: [facility] [address] [place] [address] [place] Patient unwilling to speak with pharmacist at this time. Routing to pharmacist pool to advise. * Telephone Encounter - Obinna Jamil RP - 04/13/2024 12:52 PM EST I have reviewed the patients controlled substance dispensing history in the Prescription Drug Monitoring Program in compliance with the [facility] regulations before prescribing a controlled substance. [...] medication is due for refill: 04/04 Pharmacy: [facility] [address] [place] [address] [place] Is this request for a controlled substance? Yes and Urine Drug Screen Not completed Toxicology results: No results found for this or any previous visit. Please approve if appropriate. Thanks, Obinna Jamil PharmD Clinical Pharmacist [facility] ([facility]) [phone] 04/13/2024,12:52 PM * Telephone Encounter - Angely Live reporting consultant - 04/13/2024 10:13 AM EST Pt calling to check on status of rx. Caller can be reached at [phone]. Thanks, Angely Live Four Horse Hitch Driver [facility] ([facility]) 04/13/2024,10:13 AM * Telephone Encounter - Jeff Desir PHARM Tech - 04/11/2024 2:43 PM EST Pt calling in to request a dose change on their Amphetamine-Dextroamphet ER. Current dose: 10mg Requested dose: 15mg Reason for request: Pt asking for increased dose Preferred pharmacy: [facility] [address] [place] [address] [place] Patient unwilling to speak with pharmacist at this time. Routing to pharmacist pool to advise. Jeff Santiago CPht Piecer Up III Central[facility] WB 04/11/2024,2:43 PM documented in this encounter Plan of Treatment Upcoming Encounters Date Type Department Care Team (Late st Contact Info) Description 07/17/2024 2:00 PM EDT Office Visit [facility]Note 3] [address] [facility] [place] [phone] June, Lizbeth Gautam MD [address] [place] [address] Health Maintenance Due Date Last Done [...] Primary documented in this encounter Care Teams Party Plan Salesperson Relationship Specialty Start Date End Date June, Lizbeth Gautam MD PCP - General Family Medicine 07/12/23 documented as of this encounter
--- OUTSIDE RECORDS SUMMARY | 2024-04-29 02:45 | External Medical Summary | Summary of Care ---
Author Name Unknown Organization [facility] Address [address] [facility] [place] [address] Phone [phone] Care Team Providers Care Principal Architectural Firm Name Role Phone JuneLizbeth MD Primary Care Provider [phone] Reason for Visit * Reason Onset Date Comments Medication Refill 04/11/2024 Medication Pre-auth 04/11/2024 Encounter Details Date Type Department Care Team (Late st Contact Info) Description [facility]/11[facility] [address] [phone] Lizbeth Wilburn MD [address] [place] [address] Medication Refill; Medication Pre-auth Allergies Active Allergy Reactions Criticality Noted Date Comments Metoclopramide 02/23/2002 reglan, rapid eye movement documented as of this encounter (statuses as of 04/21/2024) Medications traZODone HCl 100 MG Oral Tablet [...] as of this encounter (statuses as of 04/21/2024) Active Problems Problem Noted Date Diagnosed Date Attention deficit hyperactiv ity disorder (ADHD), predominantly inattentive type 03/04/2024 BEVERLY (generalized anxiety disorder) 10/09/2023 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 documented as of this encounter (statuses as of 04/21/2024) Resolved Problems Problem Noted Date Diagnosed Date Resolved Date Food insecurity 07/29/2023 02/03/2024 Overview: Per [facility] Protocol Appendicitis 11/28/2005 03/04/2024 Chronic respiratory disease in period 08/14/2002 07/17/2023 Low weight or , 9029-0854 grams 02/23/2002 03/04/2024 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 Thank you, Valerie Simons Salesforce Consultant II [facility] ([facility]) 04/20/2024, 1:48 PM * Telephone Encounter - Patricio Vivar cat breeder - 04/17/2024 1:51 PM EST Pt calling to check on status of PA. Caller can be reached at [phone] . Thank you, Patricio Vivar Team Manager I [facility] ([facility]) [address] [place] [address], [address] [place] [address] [phone] 04/17/2024, 1:51 PM * Telephone Encounter - Carolina Padilla CPhT - 04/17/2024 8:07 AM EST Pt calling to check on status of PA. Caller can be reached at [phone]. Advised PA was in progress. Thank you, Carolina Padilla CPhT Commercial Lending Vice President II Centralized Clinical [facility] Services ([facility]) 04/17/2024,8:07 AM * Telephone Encounter - Mere Rosales CPhT - 04/16/2024 3:48 PM EST Patient calling to check on status of prior auth Thank you, Mere Rosales Salesforce Consultant II Centralized [facility] Pharmacy Services ([facility]) (formerly Telepharmacy) 04/16/2024 3:49 PM * Telephone Encounter - Valerie Simons CPhT - 04/16/2024 3:34 PM EST Patient calling to check on status of PA for Amphetamine-Dextroamphet ER 15 MG Oral Capsule Extended Release 24 Hour. Informed pt PA was still in process. Caller can be reached at [phone] . Thank you, Valerie Simons Salesforce Consultant II [facility] ([facility]) 04/16/2024, 3:34 PM * Telephone Encounter - Radha Rivera PHARM Tech - 04/16/2024 9:46 AM EST Images from the original note were not included. Called [facility] and they advised original PA was denied [...] Agents Form that can be found on https://www.[place].gov/ag[place]/dhs/resources/pharmacy-services/ngetdrfp-wlwljggh-fc x-forms.html.They also faxed denial rationale and form to office. They will also need clinical documentation and office visit notes faxed to them with the filled outform to [phone]. The form requires a providers signature. Below explains from the form what isneeded for approval: Sending high priority due to denial and pt request. They stated turn around time for determination is 24 hours. Thank you, Radha Rivera CPhT Salesforce Consultant III [facility] ([facility]) 04/16/2024,10:05 AM * Telephone Encounter - Radha Rivera PHARM Tech - 04/15/2024 6:05 PM EST Pt checking status, advised pt additional info is being sent. Will call ins in AM (they are only open 8430) at to verify exactly what they need and the fax number (there is a fax number in [facility] but pt also provided fax number [phone]). Per previous note ins is looking for diagnosis codes and drug and alcohol history. Thank you, Radha Rivera CPhT Salesforce Consultant III [facility] ([facility]) 04/15/2024,6:07 PM * Telephone Encounter - Patricio Vivar PHARM Tech - 04/15/2024 3:33 PM EST Pt called in stating that insurnace is requiring diagnosis codes as well as drug and alcohol history. Please advise. Thank you, Patricio Vivar Team Manager I [facility] ([facility]) [address] [place] [address], [address] [place] [address] [phone] 04/15/2024, 3:33 PM * Telephone Encounter - Feli Bauer CPhT - 04/15/2024 11:15 AM EST Daily club calling for last and next OV dates. Thank you, Feli Bauer CPhT II Salesforce Consultant [facility] ([facility]) 04/15/2024, 11:16 AM * Telephone Encounter - Radha Rivera PHARM Tech - 04/14/2024 5:23 PM EST Submitted information in previous note via [facility] (Simon: [id number]).. Awaiting payer response. We will follow-up with insurance starting 04/16. Per [facility] request, if no decision is received from insurance by 04/20, we will route back to the [facility] after clarifying with the pharmacy that the claim is still not processing. Thank you, Radha Rivera CPhT Salesforce Consultant III [facility] Clin[facility] ([facility]) 04/14/2024,5:23 PM * Telephone Encounter - Mandie Millan [facility] - 04/14/2024 12:27 PM EST [...] upon this and route back to the [facility] pool if no decision is made by the insurance by 04/20, after clarifying with the pharmacy that the claim is still not processing. If PA is denied, please also route back to [facility]. Thank you, Mandie Millan PharmD, SOL Clinical Pharmacist [facility] ([facility]) 04/14/24 12:27 PM [phone] * Telephone Encounter - Sissy Rees PHARM Tech - 04/14/2024 10:14 AM EST This is a new PA request. Upon review of this prior authorization request, I verified this request is appropriate. This is prescribed by a department for which [facility] is authorized to review prior authorizations This [...] note, there is nothing currently pending in [facility] for this request. Please advise how to proceed. Thanks, Sissy Rees Salesforce Consultant III Centralized [facility] Services ([facility]) 04/14/2024,10:14 AM * Telephone Encounter - Casis Dimas CPhT - 04/14/2024 9:46 AM EST Pt is asking high priority stating he needs medication as urgently as possible. Patient calling to inform doctor that the patient's insurance will not pay for this medication without a completed prior authorization. Did confirm this information with the pharmacy. Pt's current insurance information is as follows: Patient name: Rashi Forrest ID number: [id number] BIN number: [id number] PCN number: [id number] Group number: n/a Subscriber name: Rashi Forrest Primary or Secondary Insurance:Primary Medication: Amphetamine-Dextroamphet ER 15 MG Oral Capsule Extended Release 24 Hour Reason for Request: PA is required Pharmacy and phone number: [facility] [address] [place] [address] [place] [phone] Rx plan and phone number: Medicaid [phone] Is this a new medication for the patient? No. How did the patient obtain the medication on the lastfill? It was a different dose or frequency the last time it was filled. What alternative medications does the pharmacy have in stock?: n/a Thank you, Cici Dimas CPhT Salesforce Consultant II [facility] ([facility]) 04/14/2024,9:46 [...] speak with Laly. Thank you, Maribel Smith Team Manager I [facility] ([facility]) 04/13/2024,2:30 PM * Telephone Encounter - Obinna Jamil [facility] - 04/13/2024 12:53 PM EST Refused Prescriptions: Disp Refills Amphetamine-Dextroamphet ER 10 MG Oral Cap*30 Cap*0 Sig: Take 1 Capsule by mouth in the morning. Do not cut, crush or chew. Refused By: OBINNA JAMIL Reason for Refusal: Other (comment below) * Telephone Encounter - Obinna Jamil [facility] - 04/13/2024 12:53 PM EST Refused Prescriptions: Disp Refills Amphetamine-Dextroamphet ER 10 MG Oral Cap*30 Cap*0 Sig: Take 1 Capsule by mouth in the morning. Do not cut, crush or chew. Refused By: OBINNA JAMIL Reason for Refusal: Other (comment below) * Telephone Encounter - Obinna Jamil [facility] - 04/13/2024 12:52 PM EST Pt calling in to request a dose change on their Amphetamine-Dextroamphet ER. Current dose: 10mg Requested dose: 15mg Reason for request: Pt asking for increased dose Preferred pharmacy: [facility] [address] [place] [address] [place] Patient unwilling to speak with pharmacist at this time. Routing to pharmacist pool to advise. * Telephone Encounter - Obinna Jamil [facility] - 04/13/2024 12:52 PM EST I have reviewed the patients controlled substance dispensing history in the Prescription Drug Monitoring Program in compliance with the [facility] regulations before prescribing a controlled substance. PDMP checked on 04/13/2024. Pending Prescriptions: Disp Refills Amphetamine-Dextroamphet ER 10 MG Oral Ca*30 Cap*0 Sig: Take 1 Capsule by mouth in the morning. Do not cut, crush or chew. Last Visit: 03/25/2024 (in office), Visit date not found (telemedicine) Next Visit: 07/17/2024 Date medication was last filled: 03/04 Date medication is due for refill: 04/04 Pharmacy: [facility] [address] [place] [address] [place] Is this request for a controlled substance? Yes and Urine Drug Screen Not completed Toxicology results: No results found for this or any previous visit. Please approve if appropriate. Thanks, Obinna Jamil PharmD Clinical Pharmacist [facility] ([facility]) [phone] 04/13/2024,12:52 PM * Telephone Encounter - Angely Live PHARM Tech - 04/13/2024 10:13 AM EST Pt calling to check on status of rx. Caller can be reached at [phone]. Thanks, Angely Live Team Manager [facility] Clinical Pharmacy Services ([facility]) 04/13/2024,10:13 AM * Telephone Encounter - Jeff Desir PHARM Tech - 04/11/2024 2:43 PM EST Pt calling in to request a dose change on their Amphetamine-Dextroamphet ER. Current dose: 10mg Requested dose: 15mg Reason for request: Pt asking for increased dose Preferred pharmacy: [facility] [address] [place] [address] [place] Patient unwilling to speak with pharmacist at this time. Routing to pharmacist pool to advise. Thanks, Jeff Cramer [facility] Salesforce Consultant III Centralized Clinical Pharmacy Services 04/11/2024,2:43 PM documented in this encounter Plan of Treatment Upcoming Encounters Date Type Department Care Team (Late st Contact Info) Description 07/17/2024 2:00 PM EDT [facility], Andrea [address] [place] [phone] June, Lizbeth Gautam MD [address] [place] [address] Health Maintenance Due Date Last Done Comments [...] and 19+ Years) Aged Out No longer jos de la garza based on patient's age to complete this topic documented as of this encounter Medical Devices Not on filedocumented as of this encounter Visit Diagnoses Diagnosis Attention or concentration deficit- Primary documented in this encounter Care Teams Principal Architectural Firm Relationship Specialty Start Date End Date June, Lizbeth Gautam MD PCP - General Family Medicine 07/12/23 documented as of this encounter
--- OUTSIDE RECORDS SUMMARY | 2024-04-29 02:45 | External Medical Summary | Summary of Care ---
Author Name Unknown Organization [facility] Address [address] [facility] [place] [address] Phone [phone] Care Team Providers Care Director Of Catering Sales Name Role Phone JuneAndrei MD Primary Care Provider [phone] Reason for Visit * Reason Onset Date Comments Medication Problem 04/17/2024 Pre Cert/Prior Auth 04/17/2024 Encounter Details Date Type Department Care Team (Late st Contact Info) Description [facility]/17[facility] [address] [place] [phone] Andrei Farris MD [address] [place] [address] Medication Problem; Pre Cert/Prior Auth Allergies Active Allergy Reactions Criticality Noted Date Comments Metoclopramide 02/23/2002 reglan, rapid eye movement documented as of this encounter (statuses as of 04/28/2024) Medications traZODone HCl 100 MG Oral Tablet [...] as of this encounter (statuses as of 04/28/2024) Active Problems Problem Noted Date Diagnosed Date Attention deficit hyperactiv ity disorder (ADHD), predominantly inattentive type 03/04/2024 BEVERLY (generalized anxiety disorder) 10/09/2023 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 documented as of this encounter (statuses as of 04/28/2024) Resolved Problems Problem Noted Date Diagnosed Date Resolved Date Food insecurity 07/29/2023 02/03/2024 Overview: Per [employer] [facility] Protocol Appendicitis 11/28/2005 03/04/2024 Chronic respiratory disease in period 08/14/2002 07/17/2023 Low weight or , 6271-9511 grams 02/23/2002 03/04/2024 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 * Telephone Encounter - Mere Rosales CPhT - 04/24/2024 2:07 PM EST Patient calling to check PA , patient stated INS does not have the information please request as urgent Thank you, Mere Rosales Dean Of Girls II [facility] ([facility]) (formerly Telepharmacy) 04/24/2024 2:08 PM * Telephone Encounter - Maritza Maldonado CPhT - 04/23/2024 4:04 PM EST Pt calling to check on status of PA Amphetamine-Dextroamphet ER 15 MG Oral Capsule Extended [id number] Hour . Caller can be reached at [phone]. Thank you, Maritza Maldonado CPhT Division Service Manager II [facility]ized [facility] Services ([facility]) (Formerly [...] receive yet. Pt can be reached at: [phone] Pt would like a call back. Thank you, Kemi Sands Division Service Manager I [facility] Services ([facility]) 04/21/2024,2:50 PM * Telephone Encounter - Vielka Ovalles LPN - 04/20/2024 2:57 PM EST Patient called and states that he will submit a picture of his insurance through [facility] [place] [facility]. * Telephone Encounter - Emilia Londono OSA [...] with required documents. Thank you, Radha Rivera [facility] Dean Of Girls III Centralized Clincal Pharmacy Services ([facility]PS) 04/20/2024,11:06 [...] Description 07/17/2024 2:00 PM EDT [facility] [address] [place] [phone] Andrei Farris MD [address] [place] [address] Health Maintenance Due Date Last Done Comments [...] filedocumented as of this encounter Care Teams Director Of Catering Sales Relationship Specialty Start Date End Date June, Andrei Gautam MD PCP - General Family Medicine 07/12/23 documented as of this encounter
--- OUTSIDE RECORDS SUMMARY | 2024-04-29 02:45 | External Medical Summary | Summary of Care ---
Author Name Unknown Organization [facility] Address [address] [place] [address] Phone [phone] Care Team Providers Care Uat Tester Name Role Phone JuneAndrei MD Primary Care Provider [phone] Reason for Visit * Reason Onset Date Comments Medication Problem 04/17/2024 Pre Cert/Prior Auth 04/17/2024 Encounter Details Date Type Department Care Team (Late st Contact Info) Description [facility] [address] [place] [phone] Andrei Farris MD [address] [place] [address] Medication Problem; Pre Cert/Prior Auth Allergies Active [...] Date Food insecurity 07/29/2023 02/03/2024 Overview: Per [employer] [facility] Pharm[facility] Protocol Appendicitis 11/28/2005 03/04/2024 Chronic respiratory disease in period 08/14/2002 07/17/2023 Low weight or , 2735-3518 grams 02/23/2002 03/04/2024 Other disorders of psychological [...] request as urgent Thank you, Mere Rosales Track Repairer Helper II [facility] ([facility]) (formerly Telepharmacy) 04/24/2024 2:08 PM * Telephone Encounter - Maritza Maldonado CPhT - 04/23/2024 4:04 PM EST Pt calling to check on status of PA Amphetamine-Dextroamphet ER 15 MG Oral Capsule Extended [id number] Hour . Caller can be reached at [phone]. Thank you, Maritza Maldonado CPhT Rolled Materials Worker II Centralized Clinical Pharmacy Services ([facility]) (Formerly [...] receive yet. Pt can be reached at: [phone] Pt would like a call back. Thank you, Kemi Sands Rolled Materials Worker I [facility] Clinical Pharm[facility] Services ([facility]) 04/21/2024,2:50 PM * Telephone Encounter - Vielka Ovalles LPN - 04/20/2024 2:57 PM EST Patient called and states that he will submit a picture of his [place] through [facility]. * Telephone Encounter - Emilia Londono OSA [...] with required documents. Thank you, Radha Rivera [facility] Track Repairer Helper III Centralized Clincal Pharmacy Services ([facility]PS) 04/20/2024,11:06 [...] PM EDT [facility] [place] [address] [place] [phone] Andrei Farris MD [address] [place] [address] Health Maintenance Due Date Last Done Comments [...] filedocumented as of this encounter Care Teams Uat Tester Relationship Specialty Start Date End Date June, Andrei Gautam MD PCP - General Family Medicine 07/12/23 documented as of this encounter
--- OUTSIDE RECORDS SUMMARY | 2024-04-29 02:45 | External Medical Summary | Summary of Care ---
Author Name Unknown Organization [facility] Address [address] [facility] [place] [address] Phone [phone] Care Team Providers Care Contract Runner Name Role Phone JuneAndrei MD Primary Care Provider [phone] Reason for Visit * Reason Onset Date Comments Medication Problem 04/17/2024 Pre Cert/Prior Auth 04/17/2024 Encounter Details Date Type Department Care Team (Late st Contact Info) Description [facility] [address] [place] [phone] Andrei Farris MD [address] [place] [address] Medication Problem; Pre Cert/Prior Auth Allergies Active Allergy Reactions Criticality Noted Date Comments Metoclopramide 02/23/2002 reglan, rapid eye movement documented as of this encounter (statuses as of 04/24/2024) Medications traZODone HCl 100 MG Oral Tablet [...] as of this encounter (statuses as of 04/24/2024) Active Problems Problem Noted Date Diagnosed Date Attention deficit hyperactiv ity disorder (ADHD), predominantly inattentive type 03/04/2024 BEVERLY (generalized anxiety disorder) 10/09/2023 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 documented as of this encounter (statuses as of 04/24/2024) Resolved Problems Problem Noted Date Diagnosed Date Resolved Date Food insecurity 07/29/2023 02/03/2024 Overview: Per [employer] [facility] Pharmacy Protocol Appendicitis 11/28/2005 03/04/2024 Chronic respiratory disease in period 08/14/2002 07/17/2023 Low weight or , 5165-2801 grams 02/23/2002 03/04/2024 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 Overview (12/11/2016): ICD-10 update of inactive term documented as of this encounter (statuses as of 04/24/2024) Immunizations Name Administration Dates Next Due HIB [...] encounter Miscellaneous Notes * Telephone Encounter - Mere Rosales CPhT - 04/24/2024 2:07 PM EST Patient calling to check PA , patient stated INS does not have the information please request as urgent Thank you, Mree Rosales Telegraph Inspector II [facility] ([facility]) (formerly Telepharmacy) 04/24/2024 2:08 PM * Telephone Encounter - Maritza Maldonado CPhT - 04/23/2024 4:04 PM EST Pt calling to check on status of PA Amphetamine-Dextroamphet ER 15 MG Oral Capsule Extended [id number] Hour . Caller can be reached at [phone]. Thank you, Maritza Maldonado CPhT Tunnel Inspector II Centralized Clinical Pharmacy Services ([facility]) (Formerly [...] receive yet. Pt can be reached at: [phone] Pt would like a call back. Thank you, Kemi Sands Tunnel Inspector I [facility]ized Clinical Pharm[facility] Services ([facility]) 04/21/2024,2:50 PM * Telephone Encounter - Vielka Ovalles LPN - 04/20/2024 2:57 PM EST Patient called and states that he will submit a picture of his insurance through [facility]. * Telephone Encounter - Emilia Londono OSA [...] with required documents. Thank you, Radha Rivera CPhT Telegraph Inspector III Centralized Clin[facility] Pharmacy Services ([facility]PS) 04/20/2024,11:06 [...] 07/17/2024 2:00 PM EDT [facility] [place] [address] [place] [phone] Andrei Farris MD [address] [address] Health Maintenance Due Date Last Done Comments [...] filedocumented as of this encounter Care Teams Contract Runner Relationship Specialty Start Date End Date June, Andrei Gautam MD PCP - General Family Medicine 07/12/23 documented as of this encounter
--- OUTSIDE RECORDS SUMMARY | 2024-04-29 02:46 | External Medical Summary | Summary of Care ---
Author Name Unknown Organization [facility] Address [address] [facility] [place] [address] Phone [phone] Care Team Providers Care Maintenance Mechanic Millwright Name Role Phone JuneLizbeth MD Primary Care Provider [phone] Reason for Visit * Reason Onset Date Comments Medication Refill 04/11/2024 Medication Pre-auth 04/11/2024 Encounter Details Date Type Department Care Team (Late st Contact Info) Description 04/11/2024 [facility] [address] [place] [phone] JuneLizbeth MD [address] [address] Medication Refill; Medication Pre-auth Allergies Active Allergy Reactions Criticality Noted Date Comments Metoclopramide 02/23/2002 reglan, rapid eye movement documented as of this encounter (statuses as of 04/16/2024) Medications traZODone HCl 100 MG Oral Tablet [...] as of this encounter (statuses as of 04/16/2024) Active Problems Problem Noted Date Diagnosed Date Attention deficit hyperactiv ity disorder (ADHD), predominantly inattentive type 03/04/2024 BEVERLY (generalized anxiety disorder) 10/09/2023 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 documented as of this encounter (statuses as of 04/16/2024) Resolved Problems Problem Noted Date Diagnosed Date Resolved Date Food insecurity 07/29/2023 02/03/2024 Overview: Per [employer] [facility] Pharmacy Protocol Appendicitis 11/28/2005 03/04/2024 Chronic respiratory disease in period 08/14/2002 07/17/2023 Low weight or infant, 5888-0583 grams 02/23/2002 03/04/2024 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 Informed pt PA was still in process. Caller can be reached at [phone] . Thank you, Valerie Simons [employer] Guidance Counselor II Centralized Clinical Pharmacy Services ([facility]) 04/16/2024, 3:34 PM * Telephone Encounter - Radha Rivera PHARM Tech - 04/16/2024 9:46 AM EST Images from the original note were not included. Called [facility] and they advised original PA [...] Agents Form that can be found on [place]://www.[place]/dhs/resources/pharmacy-services/koawfdue-wzbxszje-lg x-forms.html.They also faxed denial rationale and form to office. They will also need clinical documentation and office visit notes faxed to them with the filled outform to [phone]. The form requires a providers signature. Below explains from the form what isneeded for approval: Sending high priority due to denial and pt request. They stated turn around time for determination is 24 hours. Thank you, Radha Rivera [facility] [employer] Guidance Counselor III Centralized Clincal Pharmacy Services ([facility]PS) 04/16/2024,10:05 [...] CMM but pt also provided fax number [phone]). Per previous note ins is looking for diagnosis codes and drug and alcohol history. Thank you, Radha Rviera [facility] [employer] Guidance Counselor III Centralized Clincal Pharmacy Services ([facility]) 04/15/2024,6:07 PM * Telephone Encounter - Patricio Vivar PHARM Tech - 04/15/2024 3:33 PM EST Pt called in stating that insurnace is requiring diagnosis codes as well as drug and alcohol history. Please advise. Thank you, Patricio iVvar Setter [employer] I Clinical Pharmacy Services ([facility]) [address] [place] [address], [address] [place] [address] [phone] 04/15/2024, 3:33 PM * Telephone Encounter - Feli Bauer CPhT - 04/15/2024 11:15 AM EST Daily club calling for last and next OV dates. Thank you, Feli Bauer CPhT II High [employer] Guidance Counselor Centralized Clinical Pharmacy Services ([facility]) 04/15/2024, 11:16 AM * Telephone Encounter - Radha Rivera PHARM Tech - 04/14/2024 5:23 PM EST Submitted information in previous note via CM (Simon: [id number]).. Awaiting payer response. We will follow-up with insurance starting 04/16. Per [facility] request, if no decision is received from insurance by 04/20, we will route back to the [facility] after clarifying with the pharmacy that the claim is still not processing. Thank you, Radha Rivera CPhT High School Guidance Counselor III Centralized Clincal Pharmacy Services ([facility]) 04/14/2024,5:23 PM * Telephone Encounter - Mandie Millan [facility] - 04/14/2024 12:27 PM EST Please submit [...] upon this and route back to the [facility] pool if no decision is made by the insurance by 04/20, after clarifying with the pharmacy that the claim is still not processing. If PA is denied, please also route back to [facility] pool. Thank you, Mandie Millan PharmD, SOL Clinical Pharmacist Centralized Clinical Pharmacy Services ([facility]) 04/14/24 12:27 PM [phone] Electronically signed by Mandie Millan [facility] at 04/14/2024 12:35 PM EST * Telephone Encounter - Sissy Rees PHARM Tech - 04/14/2024 10:14 AM EST This is a new PA request. Upon review of this prior authorization request, I verified this request is appropriate. This is prescribed by a department for which [facility] is authorized to review prior [...] note, there is nothing currently pending in [facility] for this request. Please advise how to proceed. Thanks, Sissy Rees [employer] Guidance Counselor III Centralized Clinical Pharmacy Services ([facility]) 04/14/2024,10:14 [...] follows: Patient name: Rashi Forrest ID number: [id number] BIN number: [id number] N number: [id number] Group number: n/a Subscriber name: Rashi Forrest Primary or Secondary Insurance:Primary Medication: Amphetamine-Dextroamphet ER 15 MG Oral Capsule Extended Release 24 Hour Reason for Request: PA is required Pharmacy and phone number: [facility] [address] [place] [address] [address] [phone] Rx plan and phone number: Medicaid [phone] Is this a new medication for the patient? No. How did the patient obtain the medication on the lastfill? It was a different dose or frequency the last time it was filled. What alternative medications does the pharmacy have in stock?: n/a Thank you, Cici Dimas CPhT High School Guidance Counselor II Centralized Clinical Pharmacy Services ([facility]) 04/14/2024,9:46 [...] speak with Laly. Thank you, Maribel Smith Setter [employer] C[employer] I Centralized Clinical Pharmacy Services ([facility]) 04/13/2024,2:30 PM * Telephone Encounter - Obinna Jamil, [facility] - 04/13/2024 12:53 PM EST Refused Prescriptions: Disp Refills Amphetamine-Dextroamphet ER 10 MG Oral Cap*30 Cap*0 Sig: Take 1 Capsule by mouth in the morning. Do not cut, crush or chew. Refused By: OBINNA JAMIL Reason for Refusal: Other (comment below) * Telephone Encounter - Obinna Jamil [facility] - 04/13/2024 12:53 PM EST Refused Prescriptions: Disp Refills Amphetamine-Dextroamphet ER 10 MG Oral Cap*30 Cap*0 Sig: Take 1 Capsule by mouth in the morning. Do not cut, crush or chew. Refused By: OBINNA JAMIL Reason for Refusal: Other (comment below) * Telephone Encounter - Obinna Jamil [facility] - 04/13/2024 12:52 PM EST Pt calling in to request a dose change on their Amphetamine-Dextroamphet ER. Current dose: 10mg Requested dose: 15mg Reason for request: Pt asking for increased dose Preferred pharmacy: [facility] [address] [place] [address] Patient unwilling to speak with pharmacist at this time. Routing to pharmacist pool to advise. * Telephone Encounter - Obinna Jamil [facility] - 04/13/2024 12:52 PM EST I have reviewed the patients controlled substance dispensing history in the Prescription Drug Monitoring Program in compliance with the [facility] regulations before prescribing a controlled substance. PDMP checked on 04/13/2024. Pending Prescriptions: Disp Refills Amphetamine-Dextroamphet ER 10 MG Oral Ca*30 Cap*0 Sig: Take 1 Capsule by mouth in the morning. Do not cut, crush or chew. Last Visit: 03/25/2024 (in office), Visit date not found (telemedicine) Next Visit: 07/17/2024 Date medication was last filled: 03/04 Date medication is due for refill: 04/04 [facility] [address] [place] [address] [place] Is this request for a controlled substance? Yes and Urine Drug Screen Not completed Toxicology results: No results found for this or any previous visit. Please approve if appropriate. Thanks, Obinna Jamil PharmD Clinical Pharmacist Centralized Clinical Pharmacy Services ([facility]) [phone] 04/13/2024,12:52 PM * Telephone Encounter - Angely Live PHARM Tech - 04/13/2024 10:13 AM EST Pt calling to check on status of rx. Caller can be reached at [phone]. Thanks, Angely Live Setter Molding [employer] Coremaking Machines Centralized Clinical Pharmacy Services ([facility]) 04/13/2024,10:13 AM * Telephone Encounter - Jeff Desir PHARM Tech - 04/11/2024 2:43 PM EST Pt calling in to request a dose change on their Amphetamine-Dextroamphet ER. Current dose: 10mg Requested dose: 15mg Reason for request: Pt asking for increased dose [facility] [address] [place] [address] [place] Patient unwilling to speak with pharmacist at this time. Routing to pharmacist pool to advise. Thanks, Jeff Cramer CPht [employer] Guidance Counselor III Centralized Clinical Pharmacy Services [facility] 04/11/2024,2:43 PM documented in this encounter Plan of Treatment Upcoming Encounters Date Type Department Care Team (Late st Contact Info) Description 07/17/2024 2:00 PM EDT Office Visit [facility] [place] [address] [place] [address] June, Lizbeth Gautam MD [address] [facility] [address] [address] Health Maintenance Due Date Last Done Comments [...] Primary documented in this encounter Care Teams Maintenance Mechanic Millwright Relationship Specialty Start Date End Date June, Lizbeth Gautam MD PCP - General Family Medicine 07/12/23 documented as of this encounter
--- OUTSIDE RECORDS SUMMARY | 2024-04-29 02:46 | External Medical Summary | Summary of Care ---
Author Name Unknown Organization [facility] Address [address] [place] [address] Phone [phone] Care Team Providers Care Procurement Inspector Name Role Phone JuneLizbeth MD Primary Care Provider [phone] Reason for Visit * Reason Onset Date Comments Medication Refill 04/11/2024 Encounter Details Date Type Department Care Team (Late st Contact Info) Description 04/11/2024 [facility] [address] [place] [address] Lizbeth Wilburn MD [address] [place] [address] Medication Refill Allergies Active Allergy Reactions Criticality Noted Date Comments Metoclopramide 02/23/2002 reglan, rapid eye movement documented as of this encounter (statuses as of 04/15/2024) Medications traZODone HCl 100 MG Oral Tablet [...] as of this encounter (statuses as of 04/15/2024) Active Problems Problem Noted Date Diagnosed Date Attention deficit hyperactiv ity disorder (ADHD), predominantly inattentive type 03/04/2024 BEVERLY (generalized anxiety disorder) 10/09/2023 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 documented as of this encounter (statuses as of 04/15/2024) Resolved Problems Problem Noted Date Diagnosed Date Resolved Date Food insecurity 07/29/2023 02/03/2024 Overview: Per [facility] Protocol Appendicitis 11/28/2005 03/04/2024 Chronic respiratory disease in period 08/14/2002 07/17/2023 Low weight or infant, 8364-4438 grams 02/23/2002 03/04/2024 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 Thank you, Feli Bauer CPhT II Hospital Cleaning Specialist [facility] ([facility]) 04/15/2024, 11:16 AM * Telephone Encounter - Radha Rivera PHARM Tech - 04/14/2024 5:23 PM EST Submitted information in previous note via CMM (Simon: [id number]).. Awaiting payer response. We will follow-up with insurance starting 04/16. Per [facility] request, if no decision is received from insurance by 04/20, we will route back to the [facility] after clarifying with the pharmacy that the claim is still not processing. Thank you, Radha Rivera CPhT Hospital Cleaning Specialist III [facility] ([facility]) 04/14/2024,5:23 PM * Telephone Encounter - Manide Millan [facility] - 04/14/2024 12:27 PM EST [...] upon this and route back to the [facility] if no decision is made by the insurance by 04/20, after clarifying with the pharmacy that the claim is still not processing. If PA is denied, please also route back to [facility]. Thank you, Mandie Millan PharmD, SOL Clinical Pharmacist [facility] ([facility]) 04/14/24 12:27 PM [phone] * Telephone Encounter - Sissy Rees waiter/waitress dining car - 04/14/2024 10:14 AM EST This is a new PA request. Upon review of this prior authorization request, I verified this request is appropriate. This is prescribed by a department for which [facility] is authorized to review prior authorizations [...] note, there is nothing currently pending in [facility] for this request. Please advise how to proceed. Thanks, Sissy Rees Hospital Cleaning Specialist III [facility] ([facility]) 04/14/2024,10:14 [...] follows: Patient name: Rashi Forrest ID number: [id number] BIN number: [id number] PCN number: [id number] Group number: n/a Subscriber name: Rashi Forrest Primary or Secondary Insurance:Primary Medication: Amphetamine-Dextroamphet ER 15 MG Oral Capsule Extended Release 24 Hour Reason for Request: PA is required Pharmacy and phone number: [facility] [address] [place] [address] Rx plan and phone number: Medicaid [phone] Is this a new medication for the patient? No. How did the patient obtain the medication on the lastfill? It was a different dose or frequency the last time it was filled. What alternative medications does the pharmacy have in stock?: n/a Thank you, Cici Dimas CPhT Hospital Cleaning Specialist II [facility] ([facility]) 04/14/2024,9:46 [...] (comment below) * Telephone Encounter - Maribel Smiht PHARM Tech - 04/13/2024 2:29 PM EST Pt calling in regarding Adderall. Attempted to help pt with request, pt did not want to speak with me, and asked for the nurses in the office 3 times. Warm transferred to clinic nurse line to speak with Laly. Thank you, Maribel Smith Photographic Plate Maker I [facility] ([facility]) 04/13/2024,2:30 PM * Telephone Encounter - Obinna Jamil [facility] - 04/13/2024 12:53 PM EST Refused Prescriptions: Disp Refills Amphetamine-Dextroamphet ER 10 MG Oral Cap*30 Cap*0 Sig: Take 1 Capsule by mouth in the morning. Do not cut, crush or chew. Refused By: OBINNA JAMIL Reason for Refusal: Other (comment below) * Telephone Encounter - Obinna Jamil [facility] - 04/13/2024 12:53 PM EST Refused Prescriptions: Disp Refills Amphetamine-Dextroamphet ER 10 MG Oral Cap*30 Cap*0 Sig: Take 1 Capsule by mouth in the morning. Do not cut, crush or chew. Refused By: OBINNA JAMIL Reason for Refusal: Other (comment below) * Telephone Encounter - Obinna Jamil [facility] - 04/13/2024 12:52 PM EST Pt calling in to request a dose change on their Amphetamine-Dextroamphet ER. Current dose: 10mg Requested dose: 15mg Reason for request: Pt asking for increased dose Preferred pharmacy: [facility] [address] [address] [place] Patient unwilling to speak with pharmacist at this time. Routing to pharmacist pool to advise. * Telephone Encounter - Obinna Jamil [facility] - 04/13/2024 12:52 PM EST I have reviewed the patients controlled substance dispensing history in the Prescription Drug Monitoring Program in compliance with the [facility] regulations before prescribing a controlled substance. [...] medication is due for refill: 04/04 Pharmacy: [address] Is this request for a controlled substance? Yes and Urine Drug Screen Not completed Toxicology results: No results found for this or any previous visit. Please approve if appropriate. Thanks, Obinna Jamil PharmD Clinical Pharmacist [facility] Clinical [facility]acy Services ([facility]) [phone] 04/13/2024,12:52 PM * Telephone Encounter - Angely Live PHARM Tech - 04/13/2024 10:13 AM EST Pt calling to check on status of rx. Caller can be reached at [phone]. Thanks, Angely Live Photographic Plate Maker [facility] Pharmacy Services ([facility]) 04/13/2024,10:13 AM * Telephone Encounter - Jeff Desir PHARM Tech - 04/11/2024 2:43 PM EST Pt calling in to request a dose change on their Amphetamine-Dextroamphet ER. Current dose: 10mg Requested dose: 15mg Reason for request: Pt asking for increased dose Preferred pharmacy: [facility] [address] [place] [address] [place] Patient unwilling to speak with pharmacist at this time. Routing to pharmacist [place] to advise. Thanks, Jeff Cramer CPht Hospital Cleaning Specialist III [facility] Clinical Pharmacy Services WB 04/11/2024,2:43 PM documented in this encounter Plan of Treatment Upcoming Encounters Date Type Department Care Team (Late st Contact Info) Description 07/17/2024 2:00 PM EDT Office Visit [facility] Rj Armenta [address] [place] [phone] June, Lizbeth Gautam MD [address] [place] [address] Health Maintenance Due Date Last Done Comments [...] Primary documented in this encounter Care Teams Procurement Inspector Relationship Specialty Start Date End Date June, Lizbeth Gautam MD PCP - General Family Medicine 07/12/23 documented as of this encounter
--- OUTSIDE RECORDS SUMMARY | 2024-04-29 02:46 | External Medical Summary | Summary of Care ---
Author Name Unknown Organization [facility] Address [address] [facility] [address] [place] [address] Phone [phone] Care Team Providers Care Fish Egg Packer Name Role Phone JuneLizbeth MD Primary Care Provider Reason for Visit * Reason Onset Date Comments Medication Refill 04/11/2024 Medication Pre-auth 04/11/2024 Encounter Details Date Type Department Care Team (Late st Contact Info) Description [facility]/11[facility] [address] [place] [id number] JuneLizbeth MD [address] [place] [address] Medication Refill; Medication Pre-auth Allergies Active Allergy [...] Date Food insecurity 07/29/2023 02/03/2024 Overview: Per [facility] Protocol Appendicitis 11/28/2005 03/04/2024 Chronic respiratory disease in period 08/14/2002 07/17/2023 Low weight or infant, 7805-7704 grams 02/23/2002 03/04/2024 Other disorders of psychological [...] encounter Miscellaneous Notes * Telephone Encounter - Radha Rivera, process engineering technician - 04/16/2024 9:46 AM EST Images from the original note were not included. [facility] and they advised original PA was [...] Agents Form that can be found on [place]://[place]dhs/resources/pharmacy-services/chldxmdy-rysnrrfi-fg x-forms.html.They also faxed denial rationale and form to office. They will also need clinical documentation and office visit notes faxed to them with the filled outform to [phone]. The form requires a providers signature. Below explains from the form what isneeded for approval: Sending high priority due to denial and pt request. They stated turn around time for determination is 24 hours. Thank you, Radha Rivera store director Bobj Developer III [facility] ([facility]) 04/16/2024,10:05 AM * Telephone Encounter - Radha Rivera process engineering technician - 04/15/2024 6:05 PM EST Pt checking status, advised pt additional info is being sent. Will call ins in AM (they are only open 8430) at to verify exactly what they need and the fax number (there is a fax number in [facility] but pt also provided fax number [phone]). Per previous note ins is looking for diagnosis codes and drug and alcohol history. Thank you, Radha Rivera CPhT Bobj Developer III [facility] ([facility]) 04/15/2024,6:07 PM * Telephone Encounter - Patricio Vivar process engineering technician - 04/15/2024 3:33 PM EST Pt called in stating that insurnace is requiring diagnosis codes as well as drug and alcohol history. Please advise. Thank you, Patricio Vivar Pole Frame Construction Worker I Clinical Pharmacy Services ([facility]) [address] [place] [address], [address] 04/15/2024, 3:33 PM * Telephone Encounter - Feli Bauer CPhT - 04/15/2024 11:15 AM EST Daily club calling for last and next OV dates. Thank you, Feli Bauer CPhT II Bobj Developer [facility] ([facility]) 04/15/2024, 11:16 AM * Telephone Encounter - Radha Rivera PHARM Tech - 04/14/2024 5:23 PM EST Submitted information in previous note via [facility] (Simon: [id number]).. Awaiting payer response. We will follow-up with insurance starting 04/16. Per [facility] request, if no decision is received from insurance by 04/20, we will route back to the [facility] after clarifying with the pharmacy that the claim is still not processing. Thank you, Radha Rivera [facility] Bobj Developer III [facility] ([facility]) 04/14/2024,5:23 PM * Telephone Encounter - Mandie Millan [facility] - 04/14/2024 12:27 PM EST Please [...] this and route back to the [facility] pool if no decision is made by the insurance by 04/20, after clarifying with the pharmacy that the claim is still not processing. If PA is denied, please also route back to [facility] pool. Thank you, Mandie Millan PharmD, SOL Clinical Pharmacist [facility] ([facility]) 04/14/24 12:27 PM [phone] * Telephone Encounter - Sissy Rees process engineering technician - 04/14/2024 10:14 AM EST This is a new PA request. Upon review of this prior authorization request, I verified this request is appropriate. This is prescribed by a department for which [facility] is authorized to review prior authorizations This [...] note, there is nothing currently pending in [facility] for this request. Please advise how to proceed. Thanks, Sissy Rees Bobj Developer III [facility] ([facility]) 04/14/2024,10:14 [...] follows: Patient name: Rashi Forrest ID number: [id number] BIN number: [id number] PCN number: [id number] Group number: n/a Subscriber name: Rashi Forrest Primary or Secondary Insurance:Primary Medication: Amphetamine-Dextroamphet ER 15 MG Oral Capsule Extended Release 24 Hour Reason for Request: PA is required Pharmacy and phone number: [facility] [address] [address] [place] [phone] Rx plan and phone number: Medicaid [phone] Is this a new medication for the patient? No. How did the patient obtain the medication on the lastfill? It was a different dose or frequency the last time it was filled. What alternative medications does the pharmacy have in stock?: n/a Thank you, Cici Dimas CPhT Bobj Developer II [facility] ([facility]) 04/14/2024,9:46 [...] below) * Telephone Encounter - Maribel Smith process engineering technician - 04/13/2024 2:29 PM EST Pt calling in regarding Adderall. Attempted to help pt with request, pt did not want to speak with me, and asked for the nurses in the office 3 times. Warm transferred to clinic nurse line to speak with Laly. Thank you, Maribel Smith Pole Frame Construction Worker I [facility] ([facility]) 04/13/2024,2:30 PM * Telephone Encounter - Obinna Jamil, [facility] - 04/13/2024 12:53 PM EST Refused Prescriptions: Disp Refills Amphetamine-Dextroamphet ER 10 MG Oral Cap*30 Cap*0 Sig: Take 1 Capsule by mouth in the morning. Do not cut, crush or chew. Refused By: OBINNA JAMIL Reason for Refusal: Other (comment below) * Telephone Encounter - Obinna Jamil [facility] - 04/13/2024 12:53 PM EST Refused Prescriptions: Disp Refills Amphetamine-Dextroamphet ER 10 MG Oral Cap*30 Cap*0 Sig: Take 1 Capsule by mouth in the morning. Do not cut, crush or chew. Refused By: OBINNA JAMIL Reason for Refusal: Other (comment below) * Telephone Encounter - Obinna Jamil [facility] - 04/13/2024 12:52 PM EST Pt calling in to request a dose change on their Amphetamine-Dextroamphet ER. Current dose: 10mg Requested dose: 15mg Reason for request: Pt asking for increased dose Preferred pharmacy: [facility] [address] [place] [address] [place] Patient unwilling to speak with pharmacist at this time. Routing to pharmacist pool to advise. * Telephone Encounter - Obinna Jamil RPh - 04/13/2024 12:52 PM EST I have reviewed the patients controlled substance dispensing history in the Prescription Drug Monitoring Program in compliance with the [facility] regulations before prescribing a controlled substance. [...] medication is due for refill: 04/04 Pharmacy: [facility] [address] [place] [address] [place] Is this request for a controlled substance? Yes and Urine Drug Screen Not completed Toxicology results: No results found for this or any previous visit. Please approve if appropriate. Thanks, Obinna Jamil PharmD Clinical Pharmacist [facility] ([facility]) [phone] 04/13/2024,12:52 PM * Telephone Encounter - Angely Live PHARM Tech - 04/13/2024 10:13 AM EST Pt calling to check on status of rx. Caller can be reached at [phone]. Thanks, Angely Live Pole Frame Construction Worker [facility] ([facility]) 04/13/2024,10:13 AM * Telephone Encounter - Jeff Desir PHARM Tech - 04/11/2024 2:43 PM EST Pt calling in to request a dose change on their Amphetamine-Dextroamphet ER. Current dose: 10mg Requested dose: 15mg Reason for request: Pt asking for increased dose [facility] [address] [place] [address] [address] Patient unwilling to speak with pharmacist at this time. Routing to pharmacist pool to advise. Thanks, Jeff Cramer CPht Bobj Developer III [facility] WB 04/11/2024,2:43 PM documented in this encounter Plan of Treatment Upcoming Encounters Date Type Department Care Team (Late st Contact Info) Description 07/17/2024 2:00 PM EDT Office Visit [facility] [address] [place] [address] June, Lizbeth Gautam MD [address] [address] Health Maintenance Due Date Last Done Comments [...] Primary documented in this encounter Care Teams Fish Egg Packer Relationship Specialty Start Date End Date June, Lizbeth Gautam MD PCP - General Family Medicine 07/12/23 documented as of this encounter
--- OUTSIDE RECORDS SUMMARY | 2024-04-29 02:46 | External Medical Summary | Summary of Care ---
Author Name Unknown Organization [facility] Address [address] [place] [address] Phone [phone] Care Team Providers Care Inspector Assemblies And Installations Name Role Phone JuneLizbeth MD Primary Care Provider [phone] Reason for Visit * Reason Onset Date Comments Medication Refill 04/11/2024 Encounter Details Date Type Department Care Team (Late st Contact Info) Description 04/11/2024 [facility] [address] [place] [address] Lizbeth Wilburn MD [address] [facility] [place] [address] Medication Refill Allergies Active Allergy Reactions Criticality [...] Date Food insecurity 07/29/2023 02/03/2024 Overview: Per [facility] Protocol Appendicitis 11/28/2005 03/04/2024 Chronic respiratory disease in period 08/14/2002 07/17/2023 Low weight or infant, 6518-4191 grams 02/23/2002 03/04/2024 Other disorders of psychological [...] Miscellaneous Notes * Telephone Encounter - Radha Rivera PHARM Tech - 04/15/2024 6:05 PM EST Pt checking status, advised pt additional info is being sent. Will call ins in AM (they are only open [phone]) at to verify exactly what they need and the fax number (there is a fax number in [facility] but pt also provided fax number [phone]). Per previous note ins is looking for diagnosis codes and drug and alcohol history. Thank you, Radha Rivera CPhT Manager Consumer Insights III [facility] ([facility]) 04/15/2024,6:07 PM * Telephone Encounter - Patricio Vivar PHARM Tech - 04/15/2024 3:33 PM EST Pt called in stating that insurnace is requiring diagnosis codes as well as drug and alcohol history. Please advise. Thank you, Patricio Vivar Smt Machine Operator I [facility] ([facility]) [address] [place] [address], [address] [place] [phone] 04/15/2024, 3:33 PM * Telephone Encounter - Feli Bauer CPhT - 04/15/2024 11:15 AM EST Daily club calling for last and next OV dates. Thank you, Feli Bauer CPhT II Manager Consumer Insights [facility] ([facility]) 04/15/2024, 11:16 AM * Telephone Encounter - Radha Rivera PHARM Tech - 04/14/2024 5:23 PM EST Submitted information in previous note via CMM (Simon: [id number]).. Awaiting payer response. We will follow-up with insurance starting 04/16. Per [facility] request, if no decision is received from insurance by 04/20, we will route back to the [facility] after clarifying with the pharmacy that the claim is still not processing. Thank you, Radha Rivera CPhT Manager Consumer Insights III [facility] ([facility]) 04/14/2024,5:23 PM * Telephone Encounter - Mandie Millan [facility] - 04/14/2024 12:27 PM EST [...] upon this and route back to the RPh pool if no decision is made by the insurance by 04/20, after clarifying with the pharmacy that the claim is still not processing. If PA is denied, please also route back to [facility]. Thank you, Mandie Millan PharmD, SOL Clinical Pharmacist Centralized Clinical Pharmacy Services ([facility]) 04/14/24 12:27 PM [phone] * Telephone Encounter - Sissy Rees PHARM Tech - 04/14/2024 10:14 AM EST This is a new PA request. Upon review of this prior authorization request, I verified this request is appropriate. This is prescribed by a department for which [facility] is authorized to review prior authorizations [...] note, there is nothing currently pending in [facility] for this request. Please advise how to proceed. Thanks, Sissy Rees Manager Consumer Insights III Centralized Clinical Pharmacy Services ([facility]) 04/14/2024,10:14 [...] information is as follows: Patient name: Rashi Camargocornelio ID number: [id number] BIN number: [id number] PCN number: [id number] Group number: n/a Subscriber name: Rashi Lon Primary or Secondary Insurance:Primary Medication: Amphetamine-Dextroamphet ER 15 MG Oral Capsule Extended Release 24 Hour Reason for Request: PA is required Pharmacy and phone number: [facility] [address] [place] [address] [place] [place] [phone] Rx plan and phone number: Medicaid [phone] Is this a new medication for the patient? No. How did the patient obtain the medication on the lastfill? It was a different dose or frequency the last time it was filled. What alternative medications does the pharmacy have in stock?: n/a Thank you, Cici Dimas CPhT Manager Consumer Insights II Centralized Clinical Pharmacy Services ([facility]) 04/14/2024,9:46 [...] below) * Telephone Encounter - Maribel Smith matcher leather parts - 04/13/2024 2:29 PM EST Pt calling in regarding Adderall. Attempted to help pt with request, pt did not want to speak with me, and asked for the nurses in the office 3 times. Warm transferred to clinic nurse line to speak with Laly. Thank you, Maribel Smith Smt Machine Operator I [facility] ([facility]) 04/13/2024,2:30 PM * Telephone Encounter - Obinna Jamil [facility] - 04/13/2024 12:53 PM EST Refused Prescriptions: Disp Refills Amphetamine-Dextroamphet ER 10 MG Oral Cap*30 Cap*0 Sig: Take 1 Capsule by mouth in the morning. Do not cut, crush or chew. Refused By: OBINNA JAMIL Reason for Refusal: Other (comment below) * Telephone Encounter - Obinna Jamil [facility] - 04/13/2024 12:53 PM EST Refused Prescriptions: Disp Refills Amphetamine-Dextroamphet ER 10 MG Oral Cap*30 Cap*0 Sig: Take 1 Capsule by mouth in the morning. Do not cut, crush or chew. Refused By: OBINNA JAMIL Reason for Refusal: Other (comment below) * Telephone Encounter - Obinna Jamil [facility] - 04/13/2024 12:52 PM EST Pt calling in to request a dose change on their Amphetamine-Dextroamphet ER. Current dose: 10mg Requested dose: 15mg Reason for request: Pt asking for increased dose Preferred pharmacy: [facility] [address] [place] [address] [place] Patient unwilling to speak with pharmacist at this time. Routing to pharmacist pool to advise. * Telephone Encounter - Obinna Jamil [facility] - 04/13/2024 12:52 PM EST I have reviewed the patients controlled substance dispensing history in the Prescription Drug Monitoring Program in compliance with the [facility] regulations before prescribing a controlled substance. [...] medication is due for refill: 04/04 Pharmacy: [facility] [address] [place] [address] [place] [place] Is this request for a controlled substance? Yes and Urine Drug Screen Not completed Toxicology results: No results found for this or any previous visit. Please approve if appropriate. Thanks, Obinna Jamil PharmD Clinical Pharmacist Centralized Clinical Pharmacy Services ([facility]) [phone] 04/13/2024,12:52 PM * Telephone Encounter - Angely Live PHARM Tech - 04/13/2024 10:13 AM EST Pt calling to check on status of rx. Caller can be reached at [phone]. Thanks, Angely Live Smt Machine Operator Centralized [facility] ([facility]) 04/13/2024,10:13 AM * Telephone Encounter - Jeff Desir PHARM Tech - 04/11/2024 2:43 PM EST Pt calling in to request a dose change on their Amphetamine-Dextroamphet ER. Current dose: 10mg Requested dose: 15mg Reason for request: Pt asking for increased dose [facility] [address] [place] [address] Patient unwilling to speak with pharmacist at this time. Routing to pharmacist pool to advise. Thanks, Jeff Cramer [facility] Manager Consumer Insights III Centralized Clinical Pharmacy Services 04/11/2024,2:43 PM documented in this encounter Plan of Treatment Upcoming Encounters Date Type Department Care Team (Late st Contact Info) Description 07/17/2024 2:00 PM EDT [facility] [address] [place] [address] June, Lizbeth Gautam MD [address] [place] [address] Health Maintenance Due Date Last Done Comments [...] and 19+ Years) Aged Out No longer eliseob holli based on patient's age to complete this topic documented as of this encounter Medical Devices Not on filedocumented as of this encounter Visit Diagnoses Diagnosis Attention or concentration deficit- Primary documented in this encounter Care Teams Inspector Assemblies And Installations Relationship Specialty Start Date End Date June, Lizbeth Gautam MD PCP - General Family Medicine 07/12/23 documented as of this encounter
--- OUTSIDE RECORDS SUMMARY | 2024-04-29 02:46 | External Medical Summary | Summary of Care ---
Author Name Unknown Organization [facility] Address [address] [facility] [address] [address] Phone [phone] Care Team Providers Care Military Technician Name Role Phone JuneLizbeth MD Primary Care Provider [phone] Reason for Visit * Reason Onset Date Comments Medication Refill 04/11/2024 Medication Pre-auth 04/11/2024 Encounter Details Date Type Department Care Team (Late st Contact Info) Description 04/11/2024 [facility] [address] [place] [id number] JuneLizbeth MD [address] [place] [address] Medication Refill; Medication Pre-auth Allergies Active Allergy [...] Date Food insecurity 07/29/2023 02/03/2024 Overview: Per [facility] Protocol Appendicitis 11/28/2005 03/04/2024 Chronic respiratory disease in period 08/14/2002 07/17/2023 Low weight or infant, 4938-3424 grams 02/23/2002 03/04/2024 Other disorders of psychological [...] Notes * Telephone Encounter - Radha Rivera, online producer - 04/16/2024 9:46 AM EST Images from the original note were not included. Called [facility] and they advised original PA was denied [...] Agents Form that can be found on [place]://[place]/dhs/resources/pharmacy-services/jmtcvuen-dolddppa-fz x-forms.html.They also faxed denial rationale and form to office. They will also need clinical documentation and office visit notes faxed to them with the filled outform to [phone]. The form requires a providers signature. Below explains from the form what isneeded for approval: Sending high priority due to denial and pt request. They stated turn around time for determination is 24 hours. Thank you, Radha Rivera director of vital statistics Legal Document Assistant III [facility] ([facility]) 04/16/2024,10:05 AM * Telephone Encounter - Radha Rivera online producer - 04/15/2024 6:05 PM EST Pt checking status, advised pt additional info is being sent. Will call ins in AM (they are only open 8430) at to verify exactly what they need and the fax number (there is a fax number in [facility] but pt also provided fax number [phone]). Per previous note ins is looking for diagnosis codes and drug and alcohol history. Thank you, Radha Rivera CPhT Legal Document Assistant III Centralized [facility] Pharmacy Services ([facility]) 04/15/2024,6:07 PM * Telephone Encounter - Patricio Vivar online producer - 04/15/2024 3:33 PM EST Pt called in stating that insurnace is requiring diagnosis codes as well as drug and alcohol history. Please advise. Thank you, Patricio Vivar Yarder Puncher I Clinical Pharmacy Services ([facility]) [address] [place] [address], [address] [phone] 04/15/2024, 3:33 PM * Telephone Encounter - Feli Bauer CPhT - 04/15/2024 11:15 AM EST Daily club calling for last and next OV dates. Thank you, Feli Bauer CPhT II Legal Document Assistant Centralized Clinical Pharmacy Services ([facility]) 04/15/2024, 11:16 AM * Telephone Encounter - Radha Rivera PHARM Tech - 04/14/2024 5:23 PM EST Submitted information in previous note via [facility] (Simon: [id number]).. Awaiting payer response. We will follow-up with insurance starting 04/16. Per [facility] request, if no decision is received from insurance by 04/20, we will route back to the [facility] after clarifying with the pharmacy that the claim is still not processing. Thank you, Radha Rivera [facility] Legal Document Assistant III Centralized [facility]acy Services ([facility]) 04/14/2024,5:23 PM * Telephone Encounter - Mandie Millan [facility] - 04/14/2024 12:27 PM EST Please [...] upon this and route back to the [facility] pool if no decision is made by the insurance by 04/20, after clarifying with the pharmacy that the claim is still not processing. If PA is denied, please also route back to [facility] pool. Thank you, Mandie Millan PharmD, SOL Clinical Pharmacist Centralized Clinical Pharmacy Services ([facility]) 04/14/24 12:27 PM [phone] * Telephone Encounter - Sissy Rees online producer - 04/14/2024 10:14 AM EST This is a new PA request. Upon review of this prior authorization request, I verified this request is appropriate. This is prescribed by a department for which [facility] is authorized to review prior authorizations This [...] note, there is nothing currently pending in [facility] for this request. Please advise how to proceed. Thanks, Sissy Rees Legal Document Assistant III Centralized Clinical Pharmacy Services ([facility]) 04/14/2024,10:14 [...] follows: Patient name: Rashi Forrest ID number: [id number] BIN number: [id number] PCN number: [id number] Group number: n/a Subscriber name: Rashi Forrest Primary or Secondary Insurance:Primary Medication: Amphetamine-Dextroamphet ER 15 MG Oral Capsule Extended Release 24 Hour Reason for Request: PA is required Pharmacy and phone number: [facility] [address] [place] [address] [address] [phone] Rx plan and phone number: Medicaid [phone] Is this a new medication for the patient? No. How did the patient obtain the medication on the lastfill? It was a different dose or frequency the last time it was filled. What alternative medications does the pharmacy have in stock?: n/a Thank you, Cici Dimas CPhT Legal Document Assistant II Centralized Clinical Pharmacy Services ([facility]) 04/14/2024,9:46 [...] below) * Telephone Encounter - Maribel Smith online producer - 04/13/2024 2:29 PM EST Pt calling in regarding Adderall. Attempted to help pt with request, pt did not want to speak with me, and asked for the nurses in the office 3 times. Warm transferred to clinic nurse line to speak with Laly. Thank you, Maribel Smith Yarder Puncher I [facility] ([facility]) 04/13/2024,2:30 PM * Telephone Encounter - Obinna Jamil, [facility] - 04/13/2024 12:53 PM EST Refused Prescriptions: Disp Refills Amphetamine-Dextroamphet ER 10 MG Oral Cap*30 Cap*0 Sig: Take 1 Capsule by mouth in the morning. Do not cut, crush or chew. Refused By: OBINNA JAMIL Reason for Refusal: Other (comment below) * Telephone Encounter - Obinna Jamil [facility] - 04/13/2024 12:53 PM EST Refused Prescriptions: Disp Refills Amphetamine-Dextroamphet ER 10 MG Oral Cap*30 Cap*0 Sig: Take 1 Capsule by mouth in the morning. Do not cut, crush or chew. Refused By: OBINNA JAMIL Reason for Refusal: Other (comment below) * Telephone Encounter - Obinna Jamil [facility] - 04/13/2024 12:52 PM EST Pt calling in to request a dose change on their Amphetamine-Dextroamphet ER. Current dose: 10mg Requested dose: 15mg Reason for request: Pt asking for increased dose Preferred pharmacy: [facility] [address] [place] [address] [place] [place] Patient unwilling to speak with pharmacist at this time. Routing to pharmacist pool to advise. * Telephone Encounter - Obinna Jamil RPh - 04/13/2024 12:52 PM EST I have reviewed the patients controlled substance dispensing history in the Prescription Drug Monitoring Program in compliance with the [facility] regulations before prescribing a controlled substance. PDMP checked on 04/13/2024. Pending Prescriptions: Disp Refills Amphetamine-Dextroamphet ER 10 MG Oral Ca*30 Cap*0 Sig: Take 1 Capsule by mouth in the morning. Do not cut, crush or chew. Last Visit: 03/25/2024 (in office), Visit date not found (telemedicine) Next Visit: 07/17/2024 Date medication was last filled: 03/04 Date medication is due for refill: 04/04 Pharmacy: [facility] [address] [place] [address] [place] [place] Is this request for a controlled substance? Yes and Urine Drug Screen Not completed Toxicology results: No results found for this or any previous visit. Please approve if appropriate. Thanks, Obinna Jamil PharmD Clinical Pharmacist Centralized Clinical Pharmacy Services ([facility]) [phone] 04/13/2024,12:52 PM * Telephone Encounter - Angely Live PHARM Tech - 04/13/2024 10:13 AM EST Pt calling to check on status of rx. Caller can be reached at [phone]. Thanks, Angely Live Yarder Puncher [facility] ([facility]) 04/13/2024,10:13 AM * Telephone Encounter - Jeff Desir PHARM Tech - 04/11/2024 2:43 PM EST Pt calling in to request a dose change on their Amphetamine-Dextroamphet ER. Current dose: 10mg Requested dose: 15mg Reason for request: Pt asking for increased dose [facility] [address] [place] [address] [address] Patient unwilling to speak with pharmacist at this time. Routing to pharmacist pool to advise. Thanks, Jeff Cramer CPht Legal Document Assistant III Centralized Clinical Pharmacy Services [facility] 04/11/2024,2:43 PM documented in this encounter Plan of Treatment Upcoming Encounters Date Type Department Care Team (Late st Contact Info) Description 07/17/2024 2:00 PM EDT Office Visit [facility] [address] [facility] [place] [id number] June, Lizbeth Gautam MD [address] [address] Health Maintenance Due Date Last Done Comments [...] Primary documented in this encounter Care Teams Military Technician Relationship Specialty Start Date End Date June, Lizbeth Gautam MD PCP - General Family Medicine 07/12/23 documented as of this encounter
--- OUTSIDE RECORDS SUMMARY | 2024-04-29 02:46 | External Medical Summary | Summary of Care ---
Author Name Unknown Organization [facility] Address [address] [facility] [place] [address] Phone [phone] Care Team Providers Care Cull Grader Name Role Phone JuneLizbeth MD Primary Care Provider [phone] Reason for Visit * Reason Onset Date Comments Medication Refill 04/11/2024 Medication Pre-auth 04/11/2024 Encounter Details Date Type Department Care Team (Late st Contact Info) Description 04/11/2024 [facility] [address] [place] [phone] Lizbeth Wilburn MD [address] [place] [address] Medication Refill; Medication Pre-auth Allergies Active Allergy Reactions Criticality Noted Date Comments Metoclopramide 02/23/2002 reglan, rapid eye movement documented as of this encounter (statuses as of 04/20/2024) Medications traZODone HCl 100 MG Oral Tablet [...] as of this encounter (statuses as of 04/20/2024) Active Problems Problem Noted Date Diagnosed Date Attention deficit hyperactiv ity disorder (ADHD), predominantly inattentive type 03/04/2024 BEVERLY (generalized anxiety disorder) 10/09/2023 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 documented as of this encounter (statuses as of 04/20/2024) Resolved Problems Problem Noted Date Diagnosed Date Resolved Date Food insecurity 07/29/2023 02/03/2024 Overview: Per [facility] Protocol Appendicitis 11/28/2005 03/04/2024 Chronic respiratory disease in period 08/14/2002 07/17/2023 Low weight or , 4599-1888 grams 02/23/2002 03/04/2024 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 Thank you, Valerie Simons Production Clerk II [facility] ([facility]) 04/20/2024, 1:48 PM * Telephone Encounter - Patricio Vivar PHARM Tech - 04/17/2024 1:51 PM EST Pt calling to check on status of PA. Caller can be reached at [phone] . Thank you, Patricio Vivar Cardiology Nurse I [facility] ([facility]) [address] [place] [address], [address] [place] [address] [phone] 04/17/2024, 1:51 PM * Telephone Encounter - Carolina Padilla CPhT - 04/17/2024 8:07 AM EST Pt calling to check on status of PA. Caller can be reached at [phone]. Advised PA was in progress. Thank you, Carolina Padilla CPhT Wrapper Sorter II [facility] ([facility]) 04/17/2024,8:07 AM * Telephone Encounter - Mere Rosales CPhT - 04/16/2024 3:48 PM EST Patient calling to check on status of prior auth Thank you, Mere Rosales Production Clerk II [facility] ([facility]) (formerly Telepharmacy) 04/16/2024 3:49 PM * Telephone Encounter - Valerie Smions CPhT - 04/16/2024 3:34 PM EST Patient calling to check on status of PA for Amphetamine-Dextroamphet ER 15 MG Oral Capsule Extended Release 24 Hour. Informed pt PA was still in process. Caller can be reached at [phone] . Thank you, Valerie Simons Production Clerk II [facility] ([facility]) 04/16/2024, 3:34 PM * Telephone Encounter - Radha Rivera buttonhole maker hand - 04/16/2024 9:46 AM EST Images from the original note were not included. Called DHS and they advised original PA was denied [...] Agents Form that can be found on [place]://www.[place]dhs/resources/pharmacy-services/amqcpcki-ncmprqtw-hk x-forms.html.They also faxed denial rationale and form to office. They will also need clinical documentation and office visit notes faxed to them with the filled outform to [phone]. The form requires a providers signature. Below explains from the form what isneeded for approval: Sending high priority due to denial and pt request. They stated turn around time for determination is 24 hours. Thank you, Radha Rivera process improvement specialist Production Clerk III [facility] ([facility]) 04/16/2024,10:05 [...] CMM but pt also provided fax number [phone]). Per previous note ins is looking for diagnosis codes and drug and alcohol history. Thank you, Radha Rivera CPhT Production Clerk III [facility] ([facility]) 04/15/2024,6:07 PM * Telephone Encounter - Patricio Vivar PHARM Tech - 04/15/2024 3:33 PM EST Pt called in stating that insurnace is requiring diagnosis codes as well as drug and alcohol history. Please advise. Thank you, Patricio Vivar Cardiology Nurse I [facility] ([facility]) [address] [place] [address], [address] [place] [address] [phone] 04/15/2024, 3:33 PM * Telephone Encounter - Feli Bauer CPhT - 04/15/2024 11:15 AM EST Daily club calling for last and next OV dates. Thank you, Feli Bauer CPhT II Production Clerk [facility] ([facility]) 04/15/2024, 11:16 AM * Telephone Encounter - Radha Rivera PHARM Tech - 04/14/2024 5:23 PM EST Submitted information in previous note via CMM (Simon: [id number]).. Awaiting payer response. We will follow-up with insurance starting 04/16. Per [facility] request, if no decision is received from insurance by 04/20, we will route back to the [facility] after clarifying with the pharmacy that the claim is still not processing. Thank you, Radha Rivera CPhT Production Clerk III [facility] ([facility]) 04/14/2024,5:23 PM * Telephone Encounter - Mandie Millan [facility] - 04/14/2024 12:27 PM EST Please submit [...] upon this and route back to the [facility] pool if no decision is made by the insurance by 04/20, after clarifying with the pharmacy that the claim is still not processing. If PA is denied, please also route back to [facility] pool. Thank you, Mandie Millan PharmD, SOL Clinical Pharmacist [facility] ([facility]) 04/14/24 12:27 PM [phone] * Telephone Encounter - Sissy Rees PHARM Tech - 04/14/2024 10:14 AM EST This is a new PA request. Upon review of this prior authorization request, I verified this request is appropriate. This is prescribed by a department for which [facility] is authorized to review prior authorizations [...] note, there is nothing currently pending in [facility] for this request. Please advise how to proceed. Thanks, Sissy Rees Production Clerk III [facility] ([facility]) 04/14/2024,10:14 [...] information is as follows: Patient name: Rashi Wangsilverio ID number: [id number] BIN number: [id number] PCN number: [id number] Group number: n/a Subscriber name: Rashi Forrest Primary or Secondary Insurance:Primary Medication: Amphetamine-Dextroamphet ER 15 MG Oral Capsule Extended Release 24 Hour Reason for Request: PA is required Pharmacy and phone [facility] [address] [address] [address] [place] [phone] Rx plan and phone number: Medicaid [phone] Is this a new medication for the patient? No. How did the patient obtain the medication on the lastfill? It was a different dose or frequency the last time it was filled. What alternative medications does the pharmacy have in stock?: n/a Thank you, Cici Dimas CPhT Production Clerk II [facility] ([facility]) 04/14/2024,9:46 [...] speak with Laly. Thank you, Maribel Smith Cardiology Nurse I [facility] ([facility]) 04/13/2024,2:30 PM * Telephone Encounter - Obinna Jamil [facility] - 04/13/2024 12:53 PM EST Refused Prescriptions: Disp Refills Amphetamine-Dextroamphet ER 10 MG Oral Cap*30 Cap*0 Sig: Take 1 Capsule by mouth in the morning. Do not cut, crush or chew. Refused By: OBINNA JAMIL Reason for Refusal: Other (comment below) * Telephone Encounter - Obinna Jamil [facility] - 04/13/2024 12:53 PM EST Refused Prescriptions: Disp Refills Amphetamine-Dextroamphet ER 10 MG Oral Cap*30 Cap*0 Sig: Take 1 Capsule by mouth in the morning. Do not cut, crush or chew. Refused By: OBINNA JAMIL Reason for Refusal: Other (comment below) * Telephone Encounter - Obinna Jamil [facility] - 04/13/2024 12:52 PM EST Pt calling in to request a dose change on their Amphetamine-Dextroamphet ER. Current dose: 10mg Requested dose: 15mg Reason for request: Pt asking for increased dose Preferred pharmacy: [facility] [address] [place] [address] [place] Patient unwilling to speak with pharmacist at this time. Routing to pharmacist pool to advise. * Telephone Encounter - Obinna Jamil [facility] - 04/13/2024 12:52 PM EST I have reviewed the patients controlled substance dispensing history in the Prescription Drug Monitoring Program in compliance with the [facility] regulations before prescribing a controlled substance. PDMP [...] is due for refill: 04/04 Pharmacy: [facility] [address] [place] [address] [place] Is this request for a controlled substance? Yes and Urine Drug Screen Not completed Toxicology results: No results found for this or any previous visit. Please approve if appropriate. Thanks, Obinna Jamil PharmD Clinical Pharmacist [facility] ([facility]) [phone] 04/13/2024,12:52 PM * Telephone Encounter - Angely Live PHARM Tech - 04/13/2024 10:13 AM EST Pt calling to check on status of rx. Caller can be reached at [phone]. Thanks, Angely Live Cardiology Nurse [facility] ([facility]) 04/13/2024,10:13 AM * Telephone Encounter - Jeff Desir PHARM Tech - 04/11/2024 2:43 PM EST Pt calling in to request a dose change on their Amphetamine-Dextroamphet ER. Current dose: 10mg Requested dose: 15mg Reason for request: Pt asking for increased dose Preferred pharmacy: [facility] [address] [place] [address] [place] Patient unwilling to speak with pharmacist at this time. Routing to pharmacist pool to advise. Thanks, Jeff Cramer CPht Production Clerk III [facility] 04/11/2024,2:43 PM documented in this encounter Plan of Treatment Upcoming Encounters Date Type Department Care Team (Late st Contact Info) Description 07/17/2024 2:00 PM EDT Office Visit [facility] Andrea Santana [address] [place] [address] June, Lizbeth Gautam MD [address] [place] [address] Health Maintenance Due Date Last Done Comments [...] Primary documented in this encounter Care Teams Cull Grader Relationship Specialty Start Date End Date June, Lizbeth Gautam MD PCP - General Family Medicine 07/12/23 documented as of this encounter
--- OUTSIDE RECORDS SUMMARY | 2024-04-29 02:46 | External Medical Summary | Summary of Care ---
Author Name Unknown Organization [facility] Address [address] [facility] [place] [address] Phone [phone] Care Team Providers Care Interior Design Program Chair Name Role Phone JuneLizbeth MD Primary Care Provider Reason for Visit * Reason Onset Date Comments Medication Refill 04/11/2024 Medication Pre-auth 04/11/2024 Encounter Details Date Type Department Care Team (Late st Contact Info) Description 04/11/2024 [facility] [address] [place] [phone] Lizbeth Wilburn MD [address] [place] [address] Medication Refill; Medication Pre-auth Allergies Active Allergy Reactions Criticality Noted Date Comments Metoclopramide 02/23/2002 reglan, rapid eye movement documented as of this encounter (statuses as of 04/17/2024) Medications traZODone HCl 100 MG Oral Tablet [...] as of this encounter (statuses as of 04/17/2024) Active Problems Problem Noted Date Diagnosed Date Attention deficit hyperactiv ity disorder (ADHD), predominantly inattentive type 03/04/2024 BEVERLY (generalized anxiety disorder) 10/09/2023 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 documented as of this encounter (statuses as of 04/17/2024) Resolved Problems Problem Noted Date Diagnosed Date Resolved Date Food insecurity 07/29/2023 02/03/2024 Overview: Per [facility] Protocol Appendicitis 11/28/2005 03/04/2024 Chronic respiratory disease in period 08/14/2002 07/17/2023 Low weight or infant, 1263-9428 grams 02/23/2002 03/04/2024 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 Caller can be reached at [phone] . Thank you, Patricio Vivar Licensed Surveyor I [facility] ([facility]) [address] [place] [address], [address] [place] [address] [phone] 04/17/2024, 1:51 PM * Telephone Encounter - Carolina Padilla CPhT - 04/17/2024 8:07 AM EST Pt calling to check on status of PA. Caller can be reached at [phone]. Advised PA was in progress. Thank you, Carolina Padilla CPhT Optical Manufacturing Technician II [facility] Clinical Pharmacy Services ([facility]) 04/17/2024,8:07 AM * Telephone Encounter - Mere Rosales CPhT - 04/16/2024 3:48 PM EST Patient calling to check on status of prior auth Thank you, Mere Rosales Administrative Sales Assistant II [facility] ([facility]) (formerly Telepharmacy) 04/16/2024 3:49 PM * Telephone Encounter - Valerie Simons CPhT - 04/16/2024 3:34 PM EST Patient calling to check on status of PA for Amphetamine-Dextroamphet ER 15 MG Oral Capsule Extended Release 24 Hour. Informed pt PA was still in process. Caller can be reached at [phone] . Thank you, Valerie Simons Administrative Sales Assistant II [facility] ([facility]) 04/16/2024, [...] Agents Form that can be found on https://www.[place]/dhs/resources/pharmacy-services/spabwwuv-fgngykcb-sk x-forms.html.They also faxed denial rationale and form to office. They will also need clinical documentation and office visit notes faxed to them with the filled outform to [phone]. The form requires a providers signature. Below explains from the form what isneeded for approval: Sending high priority due to denial and pt request. They stated turn around time for determination is 24 hours. Thank you, Radha Rivera CPhT Administrative Sales Assistant III [facility] ([facility]) 04/16/2024,10:05 AM * Telephone Encounter - Radha Rivera PHARM Tech - 04/15/2024 6:05 PM EST Pt checking status, advised pt additional info is being sent. Will call ins in AM (they are only open [phone]) at to verify exactly what they need and the fax number (there is a fax number in [facility] but pt also provided fax number [phone]). Per previous note ins is looking for diagnosis codes and drug and alcohol history. Thank you, Radha Rivera CPhT Administrative Sales Assistant III [facility] ([facility]) 04/15/2024,6:07 PM * Telephone Encounter - Patricio Vivar PHARM Tech - 04/15/2024 3:33 PM EST Pt called in stating that insurnace is requiring diagnosis codes as well as drug and alcohol history. Please advise. Thank you, Patricio Vivar Licensed Surveyor I [facility] ([facility]) [address] [place] [address], [address] [place] [address] [phone] 04/15/2024, 3:33 PM * Telephone Encounter - Feli Bauer CPhT - 04/15/2024 11:15 AM EST [facility] Medicine club calling for last and next OV dates. Thank you, Feli Bauer CPhT II Administrative Sales Assistant [facility] ([facility]) 04/15/2024, 11:16 AM * Telephone Encounter - Radha Rivera PHARM Tech - 04/14/2024 5:23 PM EST Submitted information in previous note via CM (Simon: [email or web address]).. Awaiting payer response. We will follow-up with insurance starting 04/16. Per [facility] request, if no decision is received from insurance by 04/20, we will route back to the [facility] after clarifying with the pharmacy that the claim is still not processing. Thank you, Radha Rivera CPhT Administrative Sales Assistant III [facility] ([facility]) 04/14/2024,5:23 PM * Telephone Encounter - Mandie Millan [facility] - 04/14/2024 12:27 PM EST [...] upon this and route back to the [facility] pool if no decision is made by the insurance by 04/20, after clarifying with the pharmacy that the claim is still not processing. If PA is denied, please also route back to [facility] pool. Thank you, Mandie Millan PharmD, SOL Clinical Pharmacist [facility] ([facility]) 04/14/24 12:27 PM [phone] * Telephone Encounter - Sissy Rees engraver picture - 04/14/2024 10:14 AM EST This is a new PA request. Upon review of this prior authorization request, I verified this request is appropriate. This is prescribed by a department for which [facility] is authorized to review prior authorizations [...] note, there is nothing currently pending in [facility] for this request. Please advise how to proceed. Thanks, Sissy Rees Administrative Sales Assistant III [facility] ([facility]) [...] follows: Patient name: Rashi Forrest ID number: [id number] BIN number: [id number] PCN number: [id number] Group number: n/a Subscriber name: Rashi Forrest Primary or Secondary Insurance:Primary Medication: Amphetamine-Dextroamphet ER 15 MG Oral Capsule Extended Release 24 Hour Reason for Request: PA is required Pharmacy and phone number: [facility] [address] [place] [address] [place] [place] [phone] Rx plan and phone number: Medicaid [phone] Is this a new medication for the patient? No. How did the patient obtain the medication on the lastfill? It was a different dose or frequency the last time it was filled. What alternative medications does the pharmacy have in stock?: n/a Thank you, Cici Dimas CPhT Administrative Sales Assistant II [facility] ([facility]) 04/14/2024,9:46 AM * Telephone Encounter - Lizbeth Wilburn MD - 04/13/2024 5:14 PM ESTSigned Prescriptions: Disp Refills Amphetamine-Dextroamphet ER 15 MG Oral Cap*30 Cap*0 Sig: Take 1Capsule by mouth in the morning.Authorizing Provider: LIZBETH [...] below) * Telephone Encounter - Maribel Smith engraver picture - 04/13/2024 2:29 PM EST Pt calling in regarding Adderall. Attempted to help pt with request, pt did not want to speak with me, and asked for the nurses in the office 3 times. Warm transferred to clinic nurse line to speak with Laly. Thank you, Maribel Smith Licensed Surveyor I [facility] ([facility]) 04/13/2024,2:30 PM * Telephone Encounter - Obinna Jamil [facility] - 04/13/2024 12:53 PM EST Refused Prescriptions: Disp Refills Amphetamine-Dextroamphet ER 10 MG Oral Cap*30 Cap*0 Sig: Take 1 Capsule by mouth in the morning. Do not cut, crush or chew. Refused By: OBINNA JAMIL Reason for Refusal: Other (comment below) * Telephone Encounter - Obinna Jamil [facility] - 04/13/2024 12:53 PM EST Refused Prescriptions: Disp Refills Amphetamine-Dextroamphet ER 10 MG Oral Cap*30 Cap*0 Sig: Take 1 Capsule by mouth in the morning. Do not cut, crush or chew. Refused By: OBINNA JAMIL Reason for Refusal: Other (comment below) * Telephone Encounter - Obinna Jamil RP - 04/13/2024 12:52 PM EST Pt calling in to request a dose change on their Amphetamine-Dextroamphet ER. Current dose: 10mg Requested dose: 15mg Reason for request: Pt asking for increased dose Preferred pharmacy: [facility] [address] [place] [address] [place] Patient unwilling to speak with pharmacist at this time. Routing to pharmacist [place] to advise. * Telephone Encounter - Obinna Jamil RP - 04/13/2024 12:52 PM EST I have reviewed the patients controlled substance dispensing history in the Prescription Drug Monitoring Program in compliance with the [facility] regulations before prescribing a controlled substance. [...] medication is due for refill: 04/04 Pharmacy: [facility] [address] [place] [address] [place] Is this request for a controlled substance? Yes and Urine Drug Screen Not completed Toxicology results: No results found for this or any previous visit. Please approve if appropriate. Thanks, Obinna Jamil PharmD Clinical Pharmacist [facility] ([facility]) [phone] 04/13/2024,12:52 PM * Telephone Encounter - Angely Live PHARM Tech - 04/13/2024 10:13 AM EST Pt calling to check on status of rx. Caller can be reached at [phone]. Thanks, Angely Live Licensed Surveyor [facility] ([facility]) 04/13/2024,10:13 AM * Telephone Encounter - Jeff Desir PHARM Tech - 04/11/2024 2:43 PM EST Pt calling in to request a dose change on their Amphetamine-Dextroamphet ER. Current dose: 10mg Requested dose: 15mg Reason for request: Pt asking for increased dose Preferred pharmacy: [facility] Patient unwilling to speak with pharmacist at this time. Routing to pharmacist pool to advise. Thanks, Jeff Cramer CPht Administrative Sales Assistant III [facility] 04/11/2024,2:43 PM documented in this encounter Plan of Treatment Upcoming Encounters Date Type Department Care Team (Late st Contact Info) Description 07/17/2024 2:00 PM EDT Office Visit [facility] [address] [facility] [place] [address] June, Lizbeth Gautam MD [address] [facility] [place] [place] [address] Health Maintenance Due Date Last Done Comments [...] Primary documented in this encounter Care Teams Interior Design Program Chair Relationship Specialty Start Date End Date June, Lizbeth Gautam MD PCP - General Family Medicine 07/12/23 documented as of this encounter
--- OUTSIDE RECORDS SUMMARY | 2024-04-29 02:46 | External Medical Summary | Summary of Care ---
Author Name Unknown Organization [facility] Address [address] [facility] [place] [address] Phone [phone] Care Team Providers Care Audit Spec Name Role Phone JuneLizbeth MD Primary Care Provider [phone] Reason for Visit * Reason Onset Date Comments Medication Refill 04/11/2024 Medication Pre-auth 04/11/2024 Encounter Details Date Type Department Care Team (Late st Contact Info) Description [facility] [place] [phone] JuneLizbeth MD [address] [place] [address] Medication Refill; Medication Pre-auth Allergies Active Allergy [...] Date Food insecurity 07/29/2023 02/03/2024 Overview: Per [facility] Protocol Appendicitis 11/28/2005 03/04/2024 Chronic respiratory disease in period 08/14/2002 07/17/2023 Low weight or infant, 1710-2407 grams 02/23/2002 03/04/2024 Other disorders of psychological [...] Notes * Telephone Encounter - Radha Rivera, chipper feeder - 04/16/2024 9:46 AM EST Images from the original note were not included. Called [facility] and they advised original PA was denied [...] Agents Form that can be found on [place]://[place]dhs/resources/pharmacy-services/xhpuhjsr-rrxyfmgp-bp x-forms.html.They also faxed denial rationale and form to office. They will also need clinical documentation and office visit notes faxed to them with the filled outform to [phone]. The form requires a providers signature. Below explains from the form what isneeded for approval: Sending high priority due to denial and pt request. They stated turn around time for determination is 24 hours. Thank you, Radha Rivera furniture cleaner Experimental Machinist III [facility] ([facility]) 04/16/2024,10:05 AM * Telephone Encounter - Radha Rivera chipper feeder - 04/15/2024 6:05 PM EST Pt checking status, advised pt additional info is being sent. Will call ins in AM (they are only open 8430) at to verify exactly what they need and the fax number (there is a fax number in [facility] but pt also provided fax number [phone]). Per previous note ins is looking for diagnosis codes and drug and alcohol history. Thank you, Radha Rivera CPhT Experimental Machinist III [facility] ([facility]) 04/15/2024,6:07 PM * Telephone Encounter - Patricio Vivar chipper feeder - 04/15/2024 3:33 PM EST Pt called in stating that insurnace is requiring diagnosis codes as well as drug and alcohol history. Please advise. Thank you, Patricio Vivar Farebox Repairer I [facility] Pharmacy Services ([facility]) [address] [place] [address], [address] 04/15/2024, 3:33 PM * Telephone Encounter - Feli Bauer CPhT - 04/15/2024 11:15 AM EST Daily club calling for last and next OV dates. Thank you, Feli Bauer CPhT II Experimental Machinist [facility] ([facility]) 04/15/2024, 11:16 AM * Telephone Encounter - Radha Rivera PHARM Tech - 04/14/2024 5:23 PM EST Submitted information in previous note via [facility] (Simon: [id number]).. Awaiting payer response. We will follow-up with insurance starting 04/16. Per [facility] request, if no decision is received from insurance by 04/20, we will route back to the [facility] after clarifying with the pharmacy that the claim is still not processing. Thank you, Radha Rivera [facility] Experimental Machinist III [facility] ([facility]) 04/14/2024,5:23 PM * Telephone Encounter - Mandie Millan [facility] - 04/14/2024 12:27 PM EST [...] upon this and route back to the [facility] pool if no decision is made by the insurance by 04/20, after clarifying with the pharmacy that the claim is still not processing. If PA is denied, please also route back to [facility] pool. Thank you, Mandie Millan PharmD, SOL Clinical Pharmacist [facility] ([facility]) 04/14/24 12:27 PM [phone] * Telephone Encounter - Sissy Rees chipper feeder - 04/14/2024 10:14 AM EST This is a new PA request. Upon review of this prior authorization request, I verified this request is appropriate. This is prescribed by a department for which [facility] is authorized to review prior authorizations [...] note, there is nothing currently pending in [facility] for this request. Please advise how to proceed. Thanks, Sissy Rees Experimental Machinist III [facility] ([facility]) 04/14/2024,10:14 [...] follows: Patient name: Rashi Forrest ID number: [id number] BIN number: [id number] PCN number: [id number] Group number: n/a Subscriber name: Rashi Forrest Primary or Secondary Insurance:Primary Medication: Amphetamine-Dextroamphet ER 15 MG Oral Capsule Extended Release 24 Hour Reason for Request: PA is required Pharmacy and phone number: [facility] [address] [address] [place] [phone] Rx plan and phone number: Medicaid [phone] Is this a new medication for the patient? No. How did the patient obtain the medication on the lastfill? It was a different dose or frequency the last time it was filled. What alternative medications does the pharmacy have in stock?: n/a Thank you, Cici Dimas CPhT Experimental Machinist II [facility] ([facility]) 04/14/2024,9:46 [...] below) * Telephone Encounter - Maribel Smith chipper feeder - 04/13/2024 2:29 PM EST Pt calling in regarding Adderall. Attempted to help pt with request, pt did not want to speak with me, and asked for the nurses in the office 3 times. Warm transferred to clinic nurse line to speak with Laly. Thank you, Maribel Smith Farebox Repairer I [facility] ([facility]) 04/13/2024,2:30 PM * Telephone Encounter - Obinna Jamil, [facility] - 04/13/2024 12:53 PM EST Refused Prescriptions: Disp Refills Amphetamine-Dextroamphet ER 10 MG Oral Cap*30 Cap*0 Sig: Take 1 Capsule by mouth in the morning. Do not cut, crush or chew. Refused By: OBINNA JAMIL Reason for Refusal: Other (comment below) * Telephone Encounter - Obinna Jamil [facility] - 04/13/2024 12:53 PM EST Refused Prescriptions: Disp Refills Amphetamine-Dextroamphet ER 10 MG Oral Cap*30 Cap*0 Sig: Take 1 Capsule by mouth in the morning. Do not cut, crush or chew. Refused By: OBINNA JAMIL Reason for Refusal: Other (comment below) * Telephone Encounter - Obinna Jamil [facility] - 04/13/2024 12:52 PM EST Pt calling in to request a dose change on their Amphetamine-Dextroamphet ER. Current dose: 10mg Requested dose: 15mg Reason for request: Pt asking for increased dose Preferred pharmacy: [facility] [address] [place] [address] [place] Patient unwilling to speak with pharmacist at this time. Routing to pharmacist pool to advise. * Telephone Encounter - Obinna Jamil RPh - 04/13/2024 12:52 PM EST I have reviewed the patients controlled substance dispensing history in the Prescription Drug Monitoring Program in compliance with the [facility] regulations before prescribing a controlled substance. [...] medication is due for refill: 04/04 Pharmacy: [facility] [address] [place] [address] [place] Is this request for a controlled substance? Yes and Urine Drug Screen Not completed Toxicology results: No results found for this or any previous visit. Please approve if appropriate. Thanks, Obinna Jamil PharmD Clinical Pharmacist [facility] ([facility]) [phone] 04/13/2024,12:52 PM * Telephone Encounter - Angely Live PHARM Tech - 04/13/2024 10:13 AM EST Pt calling to check on status of rx. Caller can be reached at [phone]. Thanks, Angely Live Farebox Repairer [facility] ([facility]) 04/13/2024,10:13 AM * Telephone Encounter - Jeff Desir PHARM Tech - 04/11/2024 2:43 PM EST Pt calling in to request a dose change on their Amphetamine-Dextroamphet ER. Current dose: 10mg Requested dose: 15mg Reason for request: Pt asking for increased dose [facility] [address] [place] [address] [place] Patient unwilling to speak with pharmacist at this time. Routing to pharmacist pool to advise. Thanks, Jeff Cramer CPht Experimental Machinist III [facility] 04/11/2024,2:43 PM documented in this encounter Plan of Treatment Upcoming Encounters Date Type Department Care Team (Late st Contact Info) Description 07/17/2024 2:00 PM EDT Office Visit [facility] [address] [facility] [place] [address] June, Lizbeth Gautam MD [address] [place] [address] Health Maintenance Due Date Last Done Comments [...] Primary documented in this encounter Care Teams Audit Spec Relationship Specialty Start Date End Date June, Lizbeth Gautam MD PCP - General Family Medicine 07/12/23 documented as of this encounter
--- OUTSIDE RECORDS SUMMARY | 2024-04-29 02:46 | External Medical Summary | Summary of Care ---
Author Name Unknown Organization [facility] Address [address] [facility] [place] [address] Phone [phone] Care Team Providers Care Loss Prevention Lead Name Role Phone JuneLizbeth MD Primary Care Provider [phone] Reason for Visit * Reason Onset Date Comments Medication Refill 04/11/2024 Medication Pre-auth 04/11/2024 Encounter Details Date Type Department Care Team (Late st Contact Info) Description 04/11/[facility] [address] [phone] Lizbeth Wliburn MD [address] [place] [address] Medication Refill; Medication Pre-auth Allergies Active Allergy [...] Date Food insecurity 07/29/2023 02/03/2024 Overview: Per [facility] Protocol Appendicitis 11/28/2005 03/04/2024 Chronic respiratory disease in period 08/14/2002 07/17/2023 Low weight or infant, 2468-8507 grams 02/23/2002 03/04/2024 Other disorders of psychological [...] encounter Miscellaneous Notes * Telephone Encounter - Carolina Padilla CPhT - 04/17/2024 8:07 AM EST Pt calling to check on status of PA. Caller can be reached at [phone]. Advised PA was in progress. Thank you, Carolina Padilla CPhT Tractor Operator II [facility] ([facility]) 04/17/2024,8:07 AM * Telephone Encounter - Mere Rosales CPhT - 04/16/2024 3:48 PM EST Patient calling to check on status of prior auth Thank you, Mere Rosales Carbon Brushes Assembler II [facility] ([facility]) (formerly Telepharmacy) 04/16/2024 3:49 PM * Telephone Encounter - Valerie Simons CPhT - 04/16/2024 3:34 PM EST Patient calling to check on status of PA for Amphetamine-Dextroamphet ER 15 MG Oral Capsule Extended Release 24 Hour. Informed pt PA was still in process. Caller can be reached at [phone] . Thank you, Valerie Simons Carbon Brushes Assembler II [facility] ([facility]) 04/16/2024, [...] Agents Form that can be found on https://www.[place]/dhs/resources/pharmacy-services/wwlmgusd-grptjxnh-oc x-forms.html.They also faxed denial rationale and form to office. They will also need clinical documentation and office visit notes faxed to them with the filled outform to [phone]. The form requires a providers signature. Below explains from the form what isneeded for approval: Sending high priority due to denial and pt request. They stated turn around time for determination is 24 hours. Thank you, Radha Rivera CPhT Carbon Brushes Assembler III [facility] ([facility]) 04/16/2024,10:05 AM * Telephone Encounter - Radha Rivera PHARM Tech - 04/15/2024 6:05 PM EST Pt checking status, advised pt additional info is being sent. Will call ins in AM (they are only open 8430) at to verify exactly what they need and the fax number (there is a fax number in [facility] but pt also provided fax number [phone]). Per previous note ins is looking for diagnosis codes and drug and alcohol history. Thank you, Radha Rivera CPhT Carbon Brushes Assembler III [facility] ([facility]) 04/15/2024,6:07 PM * Telephone Encounter - Patricio Vivar in house counsel - 04/15/2024 3:33 PM EST Pt called in stating that insurnace is requiring diagnosis codes as well as drug and alcohol history. Please advise. Thank you, Patricio Vivar Weighing Station Operator I [facility] ([facility]) [address] [place] [address], [address] 04/15/2024, 3:33 PM * Telephone Encounter - Feli Bauer CPhT - 04/15/2024 11:15 AM EST Daily club calling for last and next OV dates. Thank you, Feli Bauer CPhT II Carbon Brushes Assembler [facility] ([facility]) 04/15/2024, 11:16 AM * Telephone Encounter - Radha Rivera in house counsel - 04/14/2024 5:23 PM EST Submitted information in previous note via [facility] (Simon: [id number]).. Awaiting payer response. We will follow-up with insurance starting 04/16. Per [facility] request, if no decision is received from insurance by 04/20, we will route back to the [facility] after clarifying with the pharmacy that the claim is still not processing. Thank you, Radha Rivera CPhT Carbon Brushes Assembler III [facility] ([facility]) 04/14/2024,5:23 PM * Telephone Encounter - Mandie Millan [facility] - 04/14/2024 12:27 PM EST [...] upon this and route back to the [facility] pool if no decision is made by the insurance by 04/20, after clarifying with the pharmacy that the claim is still not processing. If PA is denied, please also route back to [facility] pool. Thank you, Mandie Millan PharmD, SOL Clinical Pharmacist [facility] ([facility]) 04/14/24 12:27 PM [phone] * Telephone Encounter - Sissy Rees PHARM Tech - 04/14/2024 10:14 AM EST This is a new PA request. Upon review of this prior authorization request, I verified this request is appropriate. This is prescribed by a department for which [facility] is authorized to review prior authorizations [...] note, there is nothing currently pending in Center for this request. Please advise how to proceed. Thanks, Sissy Rees Carbon Brushes Assembler III [facility] ([facility]) 04/14/2024,10:14 [...] follows: Patient name: Rashi Forrest ID number: [id number] BIN number: [id number] PCN number: [id number] Group number: n/a Subscriber name: Rashi Forrest Primary or Secondary Insurance:Primary Medication: Amphetamine-Dextroamphet ER 15 MG Oral Capsule Extended Release 24 Hour Reason for Request: PA is required Pharmacy and phone number: [facility] [address] [place] [address] Rx plan and phone number: Medicaid [phone] Is this a new medication for the patient? No. How did the patient obtain the medication on the lastfill? It was a different dose or frequency the last time it was filled. What alternative medications does the pharmacy have in stock?: n/a Thank you, Cici Dimas CPhT Carbon Brushes Assembler II [facility] ([facility]) 04/14/2024,9:46 [...] speak with Laly. Thank you, Maribel Smith Weighing Station Operator I [facility] ([facility]) 04/13/2024,2:30 PM * Telephone Encounter - Obinna Jamil [facility] - 04/13/2024 12:53 PM EST Refused Prescriptions: Disp Refills Amphetamine-Dextroamphet ER 10 MG Oral Cap*30 Cap*0 Sig: Take 1 Capsule by mouth in the morning. Do not cut, crush or chew. Refused By: OBINNA JAMIL Reason for Refusal: Other (comment below) * Telephone Encounter - Obinna Jamil [facility] - 04/13/2024 12:53 PM EST Refused Prescriptions: Disp Refills Amphetamine-Dextroamphet ER 10 MG Oral Cap*30 Cap*0 Sig: Take 1 Capsule by mouth in the morning. Do not cut, crush or chew. Refused By: OBINNA JAMIL Reason for Refusal: Other (comment below) * Telephone Encounter - Obinna Jamil [facility] - 04/13/2024 12:52 PM EST Pt calling in to request a dose change on their Amphetamine-Dextroamphet ER. Current dose: 10mg Requested dose: 15mg Reason for request: Pt asking for increased dose Preferred pharmacy: [facility] [address] [place] [address] [place] Patient unwilling to speak with pharmacist at this time. Routing to pharmacist pool to advise. * Telephone Encounter - Obinna Jamil RP - 04/13/2024 12:52 PM EST I have reviewed the patients controlled substance dispensing history in the Prescription Drug Monitoring Program in compliance with the [facility] regulations before prescribing a controlled substance. [...] is due for refill: 04/04 Pharmacy: [facility] Is this request for a controlled substance? Yes and Urine Drug Screen Not completed Toxicology results: No results found for this or any previous visit. Please approve if appropriate. Thanks, Obinna Jamil PharmD Clinical Pharmacist [facility] ([facility]) [phone] 04/13/2024,12:52 PM * Telephone Encounter - Angely Live PHARM Tech - 04/13/2024 10:13 AM EST Pt calling to check on status of rx. Caller can be reached at [phone]. Angely Santiago Weighing Station Operator [facility] ([facility]) 04/13/2024,10:13 AM * Telephone Encounter - Jeff Desir PHARM Tech - 04/11/2024 2:43 PM EST Pt calling in to request a dose change on their Amphetamine-Dextroamphet ER. Current dose: 10mg Requested dose: 15mg Reason for request: Pt asking for increased dose Preferred pharmacy: [facility] [address] [address] [place] Patient unwilling to speak with pharmacist at this time. Routing to pharmacist pool to advise. Thanks, Jeff Cramer CPht Carbon Brushes Assembler III [facility] WB 04/11/2024,2:43 PM documented in this encounter Plan of Treatment Upcoming Encounters Date Type Department Care Team (Late st Contact Info) Description 07/17/2024 2:00 PM EDT Office Visit [facility] [address] [facility] [place] [address] June, Lizbeth Gautam MD [address] [facility] [place] [address] Health Maintenance Due Date Last Done Comments [...] Primary documented in this encounter Care Teams Loss Prevention Lead Relationship Specialty Start Date End Date June, Lizbeth Gautam MD PCP - General Family Medicine 07/12/23 documented as of this encounter
--- OUTSIDE RECORDS SUMMARY | 2024-04-29 02:46 | External Medical Summary | Summary of Care ---
Author Name Unknown Organization [facility] Address [address] [facility] [place] [address] Phone [phone] Care Team Providers Care Electrician Apprentice Powerhouse Name Role Phone JuneLizbeth MD Primary Care Provider [phone] Reason for Visit * Reason Onset Date Comments Medication Refill 04/11/2024 Medication Pre-auth 04/11/2024 Encounter Details Date Type Department Care Team (Late st Contact Info) Description [facility] [address] [place] [phone] JuneLizbeth MD [address] [place] [address] Medication Refill; Medication Pre-auth Allergies Active Allergy [...] Date Food insecurity 07/29/2023 02/03/2024 Overview: Per [facility] Protocol Appendicitis 11/28/2005 03/04/2024 Chronic respiratory disease in period 08/14/2002 07/17/2023 Low weight or infant, 4250-0864 grams 02/23/2002 03/04/2024 Other disorders of psychological [...] Notes * Telephone Encounter - Radha Rivera, body fitter - 04/16/2024 9:46 AM EST Images from the original note were not included. Called [facility] and they advised original PA was [...] Agents Form that can be found on [place]://www.[place]agencies/dhs/resources/pharmacy-services/pvwnldja-azkntsnz-uk x-forms.html.They also faxed denial rationale and form to office. They will also need clinical documentation and office visit notes faxed to them with the filled outform to [phone]. The form requires a providers signature. Below explains from the form what isneeded for approval: Sending high priority due to denial and pt request. They stated turn around time for determination is 24 hours. Thank you, Radha Rivera career technical education instructor [facility] ([facility]) 04/16/2024,10:05 AM * Telephone Encounter - Radha Rivera body fitter - 04/15/2024 6:05 PM EST Pt checking status, advised pt additional info is being sent. Will call ins in AM (they are only open 8430) at to verify exactly what they need and the fax number (there is a fax number in [facility] but pt also provided fax number [phone]). Per previous note ins is looking for diagnosis codes and drug and alcohol history. Thank you, Radha Rivera CPhT [facility] ([facility]) 04/15/2024,6:07 PM * Telephone Encounter - Patricio Vivar body fitter - 04/15/2024 3:33 PM EST Pt called in stating that insurnace is requiring diagnosis codes as well as drug and alcohol history. Please advise. Thank you, Patricio Vivar Professor Of Public Administration [facility] ([facility]) [address] [place] [address], [address] [phone] 04/15/2024, 3:33 PM * Telephone Encounter - Feli Bauer CPhT - 04/15/2024 11:15 AM EST Daily club calling for last and next OV dates. Thank you, Feli Baeur CPhT II [facility] ([facility]) 04/15/2024, 11:16 AM * Telephone Encounter - Radha Rivera PHARM Tech - 04/14/2024 5:23 PM EST Submitted information in previous note via [facility] (Simon: [id number]).. Awaiting payer response. We will follow-up with insurance starting 04/16. Per [facility] request, if no decision is received from insurance by 04/20, we will route back to the [facility] after clarifying with the pharmacy that the claim is still not processing. Thank you, Radha Rivera [facility] ([facility]) 04/14/2024,5:23 PM * Telephone Encounter - Mandie Millan [facility] - 04/14/2024 12:27 PM EST [...] upon this and route back to the [facility] pool if no decision is made by the insurance by 04/20, after clarifying with the pharmacy that the claim is still not processing. If PA is denied, please also route back to [facility] pool. Thank you, Mandie Millan PharmD, SOL Clinical Pharmacist [facility] ([facility]) 04/14/24 12:27 PM [phone] * Telephone Encounter - Sissy Rees body fitter - 04/14/2024 10:14 AM EST This is a new PA request. Upon review of this prior authorization request, I verified this request is appropriate. This is prescribed by a department for which [facility] is authorized to review prior authorizations This [...] note, there is nothing currently pending in [facility] for this request. Please advise how to proceed. Thanks, Sissy Rees [facility] ([facility]) 04/14/2024,10:14 [...] follows: Patient name: Rashi Forrest ID number: [id number] BIN number: [id number] PCN number: [id number] Group number: n/a Subscriber name: Rashi Forrest Primary or Secondary Insurance:Primary Medication: Amphetamine-Dextroamphet ER 15 MG Oral Capsule Extended Release 24 Hour Reason for Request: PA is required Pharmacy and phone number: [facility] [address] [address] [place] [phone] Rx plan and phone number: Medicaid [phone] Is this a new medication for the patient? No. How did the patient obtain the medication on the lastfill? It was a different dose or frequency the last time it was filled. What alternative medications does the pharmacy have in stock?: n/a Thank you, Cici Dimas CPhT [facility] ([facility]) 04/14/2024,9:46 [...] below) * Telephone Encounter - Maribel Smith body fitter - 04/13/2024 2:29 PM EST Pt calling in regarding Adderall. Attempted to help pt with request, pt did not want to speak with me, and asked for the nurses in the office 3 times. Warm transferred to clinic nurse line to speak with Laly. Thank you, Maribel Smith Professor Of Public Administration I [facility] ([facility]) 04/13/2024,2:30 PM * Telephone Encounter - Obinna Jamil, [facility] - 04/13/2024 12:53 PM EST Refused Prescriptions: Disp Refills Amphetamine-Dextroamphet ER 10 MG Oral Cap*30 Cap*0 Sig: Take 1 Capsule by mouth in the morning. Do not cut, crush or chew. Refused By: OBINNA JAMIL Reason for Refusal: Other (comment below) * Telephone Encounter - Obinna Jamil [facility] - 04/13/2024 12:53 PM EST Refused Prescriptions: Disp Refills Amphetamine-Dextroamphet ER 10 MG Oral Cap*30 Cap*0 Sig: Take 1 Capsule by mouth in the morning. Do not cut, crush or chew. Refused By: OBINNA JAMIL Reason for Refusal: Other (comment below) * Telephone Encounter - Obinna Jamil [facility] - 04/13/2024 12:52 PM EST Pt calling in to request a dose change on their Amphetamine-Dextroamphet ER. Current dose: 10mg Requested dose: 15mg Reason for request: Pt asking for increased dose Preferred pharmacy: [facility] [address] [place] [address] [place] Patient unwilling to speak with pharmacist at this time. Routing to pharmacist pool to advise. * Telephone Encounter - Obinna Jamil RPh - 04/13/2024 12:52 PM EST I have reviewed the patients controlled substance dispensing history in the Prescription Drug Monitoring Program in compliance with the [facility] regulations before prescribing a controlled substance. [...] medication is due for refill: 04/04 Pharmacy: [facility] [address] [place] [address] [place] [place] Is this request for a controlled substance? Yes and Urine Drug Screen Not completed Toxicology results: No results found for this or any previous visit. Please approve if appropriate. Thanks, Obinna Jamil PharmD Clinical Pharmacist [facility] ([facility]) [phone] 04/13/2024,12:52 PM * Telephone Encounter - Angely Live PHARM Tech - 04/13/2024 10:13 AM EST Pt calling to check on status of rx. Caller can be reached at [phone]. Thanks, Angely Live Professor Of Public Administration [facility] ([facility]) 04/13/2024,10:13 AM * Telephone Encounter - Jeff Desir PHARM Tech - 04/11/2024 2:43 PM EST Pt calling in to request a dose change on their Amphetamine-Dextroamphet ER. Current dose: 10mg Requested dose: 15mg Reason for request: Pt asking for increased dose [facility] [address] [place] [address] [place] [place] Patient unwilling to speak with pharmacist at this time. Routing to pharmacist pool to advise. Thanks, Jeff Cramer CPht [facility] 04/11/2024,2:43 PM documented in this encounter Plan of Treatment Upcoming Encounters Date Type Department Care Team (Late st Contact Info) Description 07/17/2024 2:00 PM EDT Office Visit [facility] [address] [facility] [place] [id number] June, Lizbeth Gautam MD [address] [address] Health Maintenance Due Date Last Done Comments [...] Primary documented in this encounter Care Teams Electrician Apprentice Powerhouse Relationship Specialty Start Date End Date June, Lizbeth Gautam MD PCP - General Family Medicine 07/12/23 documented as of this encounter
--- OUTSIDE RECORDS SUMMARY | 2024-04-29 02:46 | External Medical Summary | Summary of Care ---
Author Name Unknown Organization [facility] Address [address] [place] [address] Phone [phone] Care Team Providers Care Tire Builder Name Role Phone JuneLizbeth MD Primary Care Provider [phone] Reason for Visit * Reason Onset Date Comments Medication Refill 04/11/2024 Encounter Details Date Type Department Care Team (Late st Contact Info) Description 04/11/2024 [facility] [address] [place] [phone] Lizbeth Wilburn MD [address] [facility] [place] [address] Medication Refill Allergies Active Allergy Reactions Criticality [...] Date Food insecurity 07/29/2023 02/03/2024 Overview: Per [facility] Protocol Appendicitis 11/28/2005 03/04/2024 Chronic respiratory disease in period 08/14/2002 07/17/2023 Low weight or infant, 5899-1825 grams 02/23/2002 03/04/2024 Other disorders of psychological [...] ins in AM (they are only open [phone]) at to verify exactly what they need and the fax number (there is a fax number in [facility] but pt also provided fax number [phone]). Per previous note ins is looking for diagnosis codes and drug and alcohol history. Thank you, Radha Rivera CPhT Junior Net Developer III [facility] ([facility]) 04/15/2024,6:07 PM * Telephone Encounter - Patricio Vivar PHARM Tech - 04/15/2024 3:33 PM EST Pt called in stating that insurnace is requiring diagnosis codes as well as drug and alcohol history. Please advise. Thank you, Patricio Vivar Patient Case Manager [facility] ([facility]) [address] [place] [address], [address] [place] [phone] 04/15/2024, 3:33 PM * Telephone Encounter - Feli Bauer CPhT - 04/15/2024 11:15 AM EST Daily club calling for last and next OV dates. Thank you, Feli Bauer CPhT II Junior Net Developer [facility] ([facility]) 04/15/2024, 11:16 AM * Telephone Encounter - Radha Rivera PHARM Tech - 04/14/2024 5:23 PM EST Submitted information in previous note via [facility] (Simon: [id number]).. Awaiting payer response. We will follow-up with insurance starting 04/16. Per [facility] request, if no decision is received from insurance by 04/20, we will route back to the [facility] after clarifying with the pharmacy that the claim is still not processing. Thank you, Radha Rivera CPhT Junior Net Developer III [facility] ([facility]) 04/14/2024,5:23 PM * Telephone Encounter - Mandie Millan [facility] - 04/14/2024 12:27 PM EST Please submit [...] is denied, please also route back to [facility]. Thank you, Mandie Millan PharmD, SOL Clinical Pharmacist [facility] ([facility]) 04/14/24 12:27 PM [phone] * Telephone Encounter - Sissy Rees PHARM Tech - 04/14/2024 10:14 AM EST This is a new PA request. Upon review of this prior authorization request, I verified this request is appropriate. This is prescribed by a department for which [facility] is authorized to review [...] note, there is nothing currently pending in [facility] for this request. Please advise how to proceed. Thanks, Sissy Rees Junior Net Developer III [facility] ([facility]) [...] follows: Patient name: Rashi Camargocornelio ID number: [id number] BIN number: [id number] PCN number: [id number] Group number: n/a Subscriber name: Rashi Lon Primary or Secondary Insurance:Primary Medication: Amphetamine-Dextroamphet ER 15 MG Oral Capsule Extended Release 24 Hour Reason for Request: PA is required Pharmacy and phone number: [facility] [address] [place] [address] [place] [phone] Rx plan and phone number: Medicaid [phone] Is this a new medication for the patient? No. How did the patient obtain the medication on the lastfill? It was a different dose or frequency the last time it was filled. What alternative medications does the pharmacy have in stock?: n/a Thank you, Cici Dimas CPhT Junior Net Developer II [facility] ([facility]) [...] below) * Telephone Encounter - Maribel Smith fruit pitter - 04/13/2024 2:29 PM EST Pt calling in regarding Adderall. Attempted to help pt with request, pt did not want to speak with me, and asked for the nurses in the office 3 times. Warm transferred to clinic nurse line to speak with Laly. Thank you, Maribel Smith Patient Case Manager I [facility] ([facility]) 04/13/2024,2:30 PM * Telephone Encounter - Obinna Jamil [facility] - 04/13/2024 12:53 PM EST Refused Prescriptions: Disp Refills Amphetamine-Dextroamphet ER 10 MG Oral Cap*30 Cap*0 Sig: Take 1 Capsule by mouth in the morning. Do not cut, crush or chew. Refused By: OBINNA JAMIL Reason for Refusal: Other (comment below) * Telephone Encounter - Obinna Jamil [facility] - 04/13/2024 12:53 PM EST Refused Prescriptions: Disp Refills Amphetamine-Dextroamphet ER 10 MG Oral Cap*30 Cap*0 Sig: Take 1 Capsule by mouth in the morning. Do not cut, crush or chew. Refused By: OBINNA JAMIL Reason for Refusal: Other (comment below) * Telephone Encounter - Obinna Jamil [facility] - 04/13/2024 12:52 PM EST Pt calling in to request a dose change on their Amphetamine-Dextroamphet ER. Current dose: 10mg Requested dose: 15mg Reason for request: Pt asking for increased dose Preferred pharmacy: [facility] [address] [place] [address] [place] Patient unwilling to speak with pharmacist at this time. Routing to pharmacist pool to advise. * Telephone Encounter - Obinna Jamil [facility] - 04/13/2024 12:52 PM EST I have reviewed the patients controlled substance dispensing history in the Prescription Drug Monitoring Program in compliance with the [facility] regulations before prescribing a controlled [...] medication is due for refill: 04/04 Pharmacy: [facility] [address] [place] [address] [place] Is this request for a controlled substance? Yes and Urine Drug Screen Not completed Toxicology results: No results found for this or any previous visit. Please approve if appropriate. Thanks, Obinna Jamil PharmD Clinical Pharmacist [facility] ([facility]) [phone] 04/13/2024,12:52 PM * Telephone Encounter - Angely Live PHARM Tech - 04/13/2024 10:13 AM EST Pt calling to check on status of rx. Caller can be reached at [phone]. Thanks, Angely Live Patient Case Manager [facility] ([facility]) 04/13/2024,10:13 AM * Telephone Encounter - Jeff Desir PHARM Tech - 04/11/2024 2:43 PM EST Pt calling in to request a dose change on their Amphetamine-Dextroamphet ER. Current dose: 10mg Requested dose: 15mg Reason for request: Pt asking for increased dose [facility] [address] [place] [address] Patient unwilling to speak with pharmacist at this time. Routing to pharmacist pool to advise. Thanks, Jeff Cramer [facility] Junior Net Developer III [facility] 04/11/2024,2:43 PM documented in this encounter Plan of Treatment Upcoming Encounters Date Type Department Care Team (Late st Contact Info) Description 07/17/2024 2:00 PM EDT [facility] [address] [place] [address] June, Lizbeth Gautam MD [address] [address] Health Maintenance Due Date Last Done Comments [...] Primary documented in this encounter Care Teams Tire Builder Relationship Specialty Start Date End Date June, Lizbeth Gautam MD PCP - General Family Medicine 07/12/23 documented as of this encounter
--- OUTSIDE RECORDS SUMMARY | 2024-04-29 02:46 | External Medical Summary | Summary of Care ---
Author Name Unknown Organization [facility] Address [address] [facility] [place] [address] Phone [phone] Care Team Providers Care Lumber Salvager Name Role Phone JuneLizbeth MD Primary Care Provider [phone] Reason for Visit * Reason Onset Date Comments Medication Refill 04/11/2024 Medication Pre-auth 04/11/2024 Encounter Details Date Type Department Care Team (Late st Contact Info) Description [facility] [address] [place] [phone] Lizbeth Wilburn MD [address] [place] [address] Medication Refill; Medication Pre-auth Allergies Active Allergy [...] Date Food insecurity 07/29/2023 02/03/2024 Overview: Per [facility] Protocol Appendicitis 11/28/2005 03/04/2024 Chronic respiratory disease in period 08/14/2002 07/17/2023 Low weight or infant, 6495-3369 grams 02/23/2002 03/04/2024 Other disorders of psychological [...] of prior auth Thank you, Mere Rosales Glue Mill Operator II [facility] ([facility]) (formerly Telepharmacy) 04/16/2024 3:49 PM * Telephone Encounter - Valerie Simons CPhT - 04/16/2024 3:34 PM EST Patient calling to check on status of PA for Amphetamine-Dextroamphet ER 15 MG Oral Capsule Extended Release 24 Hour. Informed pt PA was still in process. Caller can be reached at [phone] . Thank you, Valerie Simons Glue Mill Operator II [facility] ([facility]) 04/16/2024, 3:34 PM * Telephone Encounter - Radha Rivera PHARM Tech - 04/16/2024 9:46 AM EST Images from the original note were not included. Called [facility] and they advised original PA was [...] Agents Form that can be found on [place]://www.[place]agencies/dhs/resources/pharmacy-services/bchhnhex-vecvrtqz-ua x-forms.html.They also faxed denial rationale and form to office. They will also need clinical documentation and office visit notes faxed to them with the filled outform to [phone]. The form requires a providers signature. Below explains from the form what isneeded for approval: Sending high priority due to denial and pt request. They stated turn around time for determination is 24 hours. Thank you, Radha Rivera [facility] Glue Mill Operator III [facility] Clin[facility] Pharmacy Services ([facility]) 04/16/2024,10:05 [...] CMM but pt also provided fax number [phone]). Per previous note ins is looking for diagnosis codes and drug and alcohol history. Thank you, Radha Rivera [facility] Glue Mill Operator III [facility] ([facility]) 04/15/2024,6:07 PM * Telephone Encounter - Patricio Vivar PHARM Tech - 04/15/2024 3:33 PM EST Pt called in stating that insurnace is requiring diagnosis codes as well as drug and alcohol history. Please advise. Thank you, Patricio Vivar [employer] Bagger I [facility] Services ([facility]) [address] [place] [address], [address] [place] [address] [phone] 04/15/2024, 3:33 PM * Telephone Encounter - Feli Bauer CPhT - 04/15/2024 11:15 AM EST Daily club calling for last and next OV dates. Thank you, Feli Bauer CPhT II Glue Mill Operator [facility] ([facility]) 04/15/2024, 11:16 AM * Telephone Encounter - Radha Rivera PHARM Tech - 04/14/2024 5:23 PM EST Submitted information in previous note via CM (Simon: [id number]).. Awaiting payer response. We will follow-up with insurance starting 04/16. Per [facility] request, if no decision is received from insurance by 04/20, we will route back to the [facility] after clarifying with the pharmacy that the claim is still not processing. Thank you, Radha Rivera CPhT Glue Mill Operator III [facility] ([facility]) 04/14/2024,5:23 PM * Telephone Encounter - Mandie Millan [facility] - 04/14/2024 12:27 PM EST Please [...] this and route back to the [facility] pool if no decision is made by the insurance by 04/20, after clarifying with the pharmacy that the claim is still not processing. If PA is denied, please also route back to [facility] pool. Thank you, Mandie Millan PharmD, SOL Clinical Pharmacist [facility] ([facility]) 04/14/24 12:27 PM [phone] Electronically signed by Mandie Millan [facility] at 04/14/2024 12:35 PM EST * Telephone Encounter - Sissy Rees PHARM Tech - 04/14/2024 10:14 AM EST This is a new PA request. Upon review of this prior authorization request, I verified this request is appropriate. This is prescribed by a department for which [facility] is authorized to review prior authorizations This [...] note, there is nothing currently pending in [facility] for this request. Please advise how to proceed. Thanks, Sissy Rees Glue Mill Operator III [facility] ([facility]) 04/14/2024,10:14 [...] follows: Patient name: Rashi Forrest ID number: [id number] BIN number: [id number] N number: [id number] Group number: n/a Subscriber name: Rashi Forrest Primary or Secondary Insurance:Primary Medication: Amphetamine-Dextroamphet ER 15 MG Oral Capsule Extended Release 24 Hour Reason for Request: PA is required Pharmacy and phone number: [facility] [address] [place] [address] ESTHERJim [place] [phone] Rx plan and phone number: Medicaid [phone] Is this a new medication for the patient? No. How did the patient obtain the medication on the lastfill? It was a different dose or frequency the last time it was filled. What alternative medications does the pharmacy have in stock?: n/a Thank you, Cici Dimas CPhT Glue Mill Operator II [facility] ([facility]) 04/14/2024,9:46 [...] speak with Laly. Thank you, Maribel Smith [employer]cery Store Bagger I [facility] ([facility]) 04/13/2024,2:30 PM * Telephone Encounter - Obinna Jamil, [facility] - 04/13/2024 12:53 PM EST Refused Prescriptions: Disp Refills Amphetamine-Dextroamphet ER 10 MG Oral Cap*30 Cap*0 Sig: Take 1 Capsule by mouth in the morning. Do not cut, crush or chew. Refused By: OBINNA JAMIL Reason for Refusal: Other (comment below) Electronically signed by Obinna Jamil [facility] at 04/13/2024 12:53 PM EST * Telephone Encounter - Obinna Jamil [facility] - 04/13/2024 12:53 PM EST Refused Prescriptions: Disp Refills Amphetamine-Dextroamphet ER 10 MG Oral Cap*30 Cap*0 Sig: Take 1 Capsule by mouth in the morning. Do not cut, crush or chew. Refused By: OBINNA JAMIL Reason for Refusal: Other (comment below) Electronically signed by Obinna Jamil [facility] at 04/13/2024 12:53 PM EST * Telephone Encounter - Obinna Jamil [facility] - 04/13/2024 12:52 PM EST Pt calling in to request a dose change on their Amphetamine-Dextroamphet ER. Current dose: 10mg Requested dose: 15mg Reason for request: Pt asking for increased dose Preferred pharmacy: Jim [facility] [address] [place] [address] Patient unwilling to speak with pharmacist at this time. Routing to pharmacist pool to advise. Electronically signed by Obinna Jamil [facility] at 04/13/2024 12:53 PM EST * Telephone Encounter - Obinna Jamil [facility] - 04/13/2024 12:52 PM EST I have reviewed the patients controlled substance dispensing history in the Prescription Drug Monitoring Program in compliance with the [facility] regulations before prescribing a controlled substance. [...] is due for refill: 04/04 [facility] [address] [place] [address] [place] Is this request for a controlled substance? Yes and Urine Drug Screen Not completed Toxicology results: No results found for this or any previous visit. Please approve if appropriate. Thanks, Obinna Jamil PharmD Clinical Pharmacist [facility] Services ([facility]) [phone] 04/13/2024,12:52 PM Electronically signed by Obinna Jamil [facility] at 04/13/2024 12:53 PM EST * Telephone Encounter - Angely Live PHARM Tech - 04/13/2024 10:13 AM EST Pt calling to check on status of rx. Caller can be reached at [phone]. Thanks, Angely Live Grocery Store Bagger [facility] ([facility]) 04/13/2024,10:13 AM * Telephone Encounter - Jeff Desir PHARM Tech - 04/11/2024 2:43 PM EST Pt calling in to request a dose change on their Amphetamine-Dextroamphet ER. Current dose: 10mg Requested dose: 15mg Reason for request: Pt asking for increased dose Preferred pharmacy: [facility] [employer] [facility] [address] [place] [address] [place] Patient unwilling to speak with pharmacist at this time. Routing to pharmacist pool to advise. Thanks, Jeff Cramer CPht Glue Mill Operator III [facility] Pharm[facility] WB 04/11/2024,2:43 PM documented in this encounter Plan of Treatment Upcoming Encounters Date Type Department Care Team (Late st Contact Info) Description 07/17/2024 2:00 PM EDT Office [facility] [place] [address] [place] [phone] June, Lizbeth Gautam MD [address] [facility] [place] [address] Health Maintenance Due Date Last Done Comments [...] Primary documented in this encounter Care Teams Lumber Salvager Relationship Specialty Start Date End Date June, Lizbeth Gautam MD PCP - General Family Medicine 07/12/23 documented as of this encounter
--- OUTSIDE RECORDS SUMMARY | 2024-04-29 02:46 | External Medical Summary | Summary of Care ---
Author Name Unknown Organization [facility] Address [address] [place] [address] Phone [phone] Care Team Providers Care Retort Forker Name Role Phone JuneLizbeth MD Primary Care Provider [phone] Reason for Visit * Reason Onset Date Comments Medication Refill 04/11/2024 Encounter Details Date Type Department Care Team (Late st Contact Info) Description 04/11/2024 [facility] [place] [address] [place] [phone] Lizbeth Wilburn MD [address] [facility] [place] [address] Medication Refill Allergies Active Allergy Reactions Criticality [...] Date Food insecurity 07/29/2023 02/03/2024 Overview: Per [facility] [facility] Protocol Appendicitis 11/28/2005 03/04/2024 Chronic respiratory disease in period 08/14/2002 07/17/2023 Low weight or infant, 4931-6627 grams 02/23/2002 03/04/2024 Other disorders of psychological [...] information in previous note via CMM (Simon: [id number]).. Awaiting payer response. We will follow-up with insurance starting 04/16. Per [facility] request, if no decision is received from insurance by 04/20, we will route back to the [facility] after clarifying with the pharmacy that the claim is still not processing. Thank you, Radha Rivera [facility] Pack Worker III Centralized Clin[facility] Pharmacy Services ([facility]) 04/14/2024,5:23 PM * Telephone Encounter - Mandie Millan [facility] - 04/14/2024 12:27 PM EST Please submit [...] upon this and route back to the [facility] pool if no decision is made by the insurance by 04/20, after clarifying with the pharmacy that the claim is still not processing. If PA is denied, please also route back to [facility] pool. Thank you, Mandie Millan PharmD, SOL Clinical Pharmacist [facility] Clinical [facility]acy Services ([facility]) 04/14/24 12:27 PM [phone] * Telephone Encounter - Sissy Rees PHARM Tech - 04/14/2024 10:14 AM EST This is a new PA request. Upon review of this prior authorization request, I verified this request is appropriate. This is prescribed by a department for which [facility] is authorized to review prior authorizations [...] note, there is nothing currently pending in [facility] for this request. Please advise how to proceed. Thanks, Sissy Rees Pack Worker III Centralized Clinical Pharmacy Services ([facility]) 04/14/2024,10:14 [...] follows: Patient name: Rashi Forrest ID number: [id number] BIN number: [id number] N number: [id number] Group number: n/a Subscriber name: Rashi Forrest Primary or Secondary Insurance:Primary Medication: Amphetamine-Dextroamphet ER 15 MG Oral Capsule Extended Release 24 Hour Reason for Request: PA is required Pharmacy and phone number: Jim [facility] [address] [place] [address] Rx plan and phone number: Medicaid [phone] Is this a new medication for the patient? No. How did the patient obtain the medication on the lastfill? It was a different dose or frequency the last time it was filled. What alternative medications does the pharmacy have in stock?: n/a Thank you, Cici Dimas CPhT Pack Worker II [facility]ized [facility]acy Services ([facility]) 04/14/2024,9:46 [...] speak with Laly. Thank you, Maribel Smith Beauty Operator Apprentice I [facility]ized [facility] Services ([facility]) 04/13/2024,2:30 PM * Telephone Encounter - Obinna Jamil [facility] - 04/13/2024 12:53 PM EST Refused Prescriptions: Disp Refills Amphetamine-Dextroamphet ER 10 MG Oral Cap*30 Cap*0 Sig: Take 1 Capsule by mouth in the morning. Do not cut, crush or chew. Refused By: OBINNA JAMIL Reason for Refusal: Other (comment below) * Telephone Encounter - Obinna Jamil [facility] - 04/13/2024 12:53 PM EST Refused Prescriptions: Disp Refills Amphetamine-Dextroamphet ER 10 MG Oral Cap*30 Cap*0 Sig: Take 1 Capsule by mouth in the morning. Do not cut, crush or chew. Refused By: OBINNA JAMIL Reason for Refusal: Other (comment below) * Telephone Encounter - Obinna Jamil [facility] - 04/13/2024 12:52 PM EST Pt calling in to request a dose change on their Amphetamine-Dextroamphet ER. Current dose: 10mg Requested dose: 15mg Reason for request: Pt asking for increased dose Preferred pharmacy: Jim [facility] [address] [place] [address] [facility] Patient unwilling to speak with pharmacist at this time. Routing to pharmacist pool to advise. * Telephone Encounter - Obinna Jamil [facility] - 04/13/2024 12:52 PM EST I have [...] is due for refill: 04/04 [facility] [address] [place] [address] [place] Is this request for a controlled substance? Yes and Urine Drug Screen Not completed Toxicology results: No results found for this or any previous visit. Please approve if appropriate. Thanks, Obinna Jamil PharmD Clinical Pharmacist [facility]acy Services ([facility]) [phone] 04/13/2024,12:52 PM * Telephone Encounter - Angely Live PHARM Tech - 04/13/2024 10:13 AM EST Pt calling to check on status of rx. Caller can be reached at [phone]. Thanks, Angely Live Beauty Operator Apprentice [facility] Clinical Pharmacy Services ([facility]) 04/13/2024,10:13 AM * Telephone Encounter - Jeff Desir PHARM Tech - 04/11/2024 2:43 PM EST Pt calling in to request a dose change on their Amphetamine-Dextroamphet ER. Current dose: 10mg Requested dose: 15mg Reason for request: Pt asking for increased dose [facility] pharmacy[facility] [address] [place] [address] [place] Patient unwilling to speak with pharmacist at this time. Routing to pharmacist pool to advise. Thanks, Jeff Cramer CPht Pack Worker III [facility] Services 04/11/2024,2:43 PM documented in this encounter Plan of Treatment Upcoming Encounters Date Type Department Care Team (Late st Contact Info) Description 07/17/2024 2:00 PM EDT [facility] [address] [place] [phone] June, Lizbeth Gautam MD [address] [facility] [place] [address] Health Maintenance Due Date Last Done Comments COVID-19 Vaccine (2023- season) 2023 02/14/2021, 07/02/2020, 06/04/2020 Depression Screening [...] Primary documented in this encounter Care Teams Retort Forker Relationship Specialty Start Date End Date June, Lizbeth Gautam MD PCP - General Family Medicine 07/12/23 documented as of this encounter
--- OUTSIDE RECORDS SUMMARY | 2024-04-29 02:47 | External Medical Summary | Summary of Care ---
Author Name Unknown Organization [facility] Address [address] [facility] [facility] [address] Phone [phone] Care Team Providers Care Building Supervisor Name Role Phone JuneLizbeth MD Primary Care Provider [phone] Reason for Visit * Reason Onset Date Comments Other 04/10/2024 busPIRone HCl 5 MG Oral Tablet (Buspar) Encounter Details Date Type Department Care Team (Late st Contact Info) Description 04/10/2024 Refill [facility] Rj [address] [place] [phone] Lizbeth Wilburn MD [address] [place] [address] BEVERLY (generalized anxiety disorder) Allergies Active Allergy Reactions Criticality Noted Date Comments Metoclopramide 02/23/2002 reglan, rapid eye movement documented as of this encounter (statuses as of 04/11/2024) Medications traZODone HCl 100 MG Oral Tablet [...] for Cough. 50 Capsule 1 5 Active Amphetamine-Dextr oamphet ER 10 MG Oral Capsule Extended Release 24 Hour (Adderall XR)Indications:At tention or concentration deficit Take 1 Capsule by mouth in the morning. Do not cut, crush or chew. 30 Capsule 5 Active busPIRone HCl 5 MG Oral Tablet (Buspar)Indicatio ns:BEVERLY (generalized anxiety disorder) Take 1 Tablet by mouth 4 times a day as needed (anxiety). 360 Tablet 1 5 Active Escitalopram Oxalate 20 MG Oral Tablet (Lexapro)Indicati ons:BEVERLY (generalized anxiety disorder) Take 1 Tablet by mouth in the morning. 90 Tablet 3 5 Active busPIRone HCl 5 MG Oral Tablet (Buspar)Indicatio ns:BEVERLY (generalized anxiety disorder) Take 1 Tablet by mouth 2 times a day as needed for anxiety. 90 Tablet 3 01/23/2024 7:43 AM EST 4 04/10/19 25 Discontin ued(Refil l) Escitalopram Oxalate 20 MG Oral Tablet (Lexapro)Indicati ons:BEVERLY (generalized anxiety disorder) Take 1 Tablet by mouth in the morning. 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 documented as of this encounter (statuses as of 04/11/2024) Resolved Problems Problem Noted Date Diagnosed Date Resolved Date Food insecurity 07/29/2023 02/03/2024 Overview: Per [facility] Protocol Appendicitis 11/28/2005 03/04/2024 Chronic respiratory disease in period 08/14/2002 07/17/2023 Low weight or infant, 2527-4533 grams 02/23/2002 03/04/2024 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 (Household - for ages [...] 8:52 AM EDT Sexual Orientation Straight 07/03/2023 8 :52 AM EDT documented as of this encounter Miscellaneous Notes * Telephone Encounter - Lizbeth Wilburn MD - 04/11/2024 7:27 AM ESTSigned Prescriptions: Disp Refills busPIRone HCl 5 MG Oral Tablet (Buspar) 360 Ta*1 Sig: Take 1 Tablet by mouth 4 times a day as needed (anxiety). Authorizing Provider: LIZBETH WILBURN Escitalopram Oxalate 20 MG Oral Tablet (Le*90 Tab*3 Sig: Take 1 Tablet by mouth in the morning. Authorizing Provider: LIZBETH WILBURN * Telephone Encounter - Mandie Millan [facility] - 04/10/2024 4:25 PM EST Pt looking refill on Buspirone, now taking medication up to four times a day as needed when having exams or quizzes at school. Pending Prescriptions: Disp Refills busPIRone HCl 5 MG Oral Tablet (Buspar) 360 Ta*1 Sig: Take 1 Tablet by mouth 4 times a day as needed (anxiety). Escitalopram Oxalate 20 MG Oral Tablet (L*90 Tab*3 Sig: Take 1 Tablet by mouth in the morning. Thank you, Mandie Millan PharmD, SOL Clinical Pharmacist [facility] ([facility]) 04/10/24 4:26 PM [phone] * Telephone Encounter - Valerie Simons CPhT - 04/10/2024 4:18 PM EST Pt calling in to request a dose change on their busPIRone HCl 5 MG Oral Tablet (Buspar). Current dose: Take 1 Tablet by mouth 2 times a day as needed for anxiety Requested dose: pt is taking rx up to 4 tablets a day Reason for request: 2 tablets a day is not helping. Preferred pharmacy: [facility] [place] [employer] Warm-transferred pt to pharmacist for consultation. Thank you, Valerie Simons Pipe Fitter Soft Copper II Centralized Clinical Pharmacy Services ([facility]) 04/10/2024, 4:18 PM documented in this encounter Plan of Treatment Upcoming Encounters Date Type Department Care Team (Late st Contact Info) Description 07/17/2024 2:00 PM EDT [facility] [address] [place] [phone] June, Lizbeth Gautam MD [address] [place] [address] Health Maintenance Due Date Last Done Comments [...] as of this encounter Visit Diagnoses Diagnosis BEVERLY (generalized anxiety disorder) Generalized anxiety disorder documented in this encounter Care Teams Building Supervisor Relationship Specialty Start Date End Date June, Lizbeth Gautam MD PCP - General Family Medicine 07/12/23 documented as of this encounter
--- OUTSIDE RECORDS SUMMARY | 2024-04-29 02:47 | External Medical Summary | Summary of Care ---
Author Name Unknown Organization [facility] Address [address] [place] [address] Phone [phone] Care Team Providers Care Quality Assurance Monitor Name Role Phone JuneLizbeth MD Primary Care Provider [phone] Reason for Visit * Reason Onset Date Comments Medication Refill 04/11/2024 Encounter Details Date Type Department Care Team (Late st Contact Info) Description 04/11/2024 [facility] [address] [place] [address] Lizbeth Wilburn MD [address] [facility] [place] [address] Medication Refill Allergies Active Allergy Reactions Criticality Noted Date Comments Metoclopramide 02/23/2002 reglan, rapid eye movement documented as of this encounter (statuses as of 04/14/2024) Medications traZODone HCl 100 MG Oral Tablet [...] as of this encounter (statuses as of 04/14/2024) Active Problems Problem Noted Date Diagnosed Date Attention deficit hyperactiv ity disorder (ADHD), predominantly inattentive type 03/04/2024 BEVERLY (generalized anxiety disorder) 10/09/2023 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 documented as of this encounter (statuses as of 04/14/2024) Resolved Problems Problem Noted Date Diagnosed Date Resolved Date Food insecurity 07/29/2023 02/03/2024 Overview: Per [facility] Protocol Appendicitis 11/28/2005 03/04/2024 Chronic respiratory disease in period 08/14/2002 07/17/2023 Low weight or infant, 9697-0877 grams 02/23/2002 03/04/2024 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 Awaiting payer response. We will follow-up with insurance starting 04/16. Per [facility] request, if no decision is received from insurance by 04/20, we will route back to the [facility] after clarifying with the pharmacy that the claim is still not processing. Thank you, Radha Rivera [facility] Paper Maker III [facility] Services ([facility]) 04/14/2024,5:23 PM * Telephone Encounter - Mandie Millan [facility] - 04/14/2024 12:27 PM EST Please [...] upon this and route back to the [facility] pool if no decision is made by the insurance by 04/20, after clarifying with the pharmacy that the claim is still not processing. If PA is denied, please also route back to [facility] pool. Thank you, Mandie Millan PharmD, SOL Clinical Pharmacist [facility] Services ([facility]) 04/14/24 12:27 PM [phone] * Telephone Encounter - Sissy Rees PHARM Tech - 04/14/2024 10:14 AM EST This is a new PA request. Upon review of this prior authorization request, I verified this request is appropriate. This is prescribed by a department for which [facility] is authorized to review prior [...] note, there is nothing currently pending in [facility] for this request. Please advise how to proceed. Thanks, Sissy Rees Paper Maker III [facility] Pharmacy Services ([facility]) 04/14/2024,10:14 [...] follows: Patient name: Rashi Forrest ID number: [id number] BIN number: [id number] N number: [id number] Group number: n/a Subscriber name: Rashi Forrest Primary or Secondary Insurance:Primary Medication: Amphetamine-Dextroamphet ER 15 MG Oral Capsule Extended Release 24 Hour Reason for Request: PA is required Pharmacy and phone number: [facility] [address] [place] [address] Rx plan and phone number: Medicaid [phone] Is this a new medication for the patient? No. How did the patient obtain the medication on the lastfill? It was a different dose or frequency the last time it was filled. What alternative medications does the pharmacy have in stock?: n/a Thank you, Cici Dimas CPhT Paper Maker II [facility]acy Services ([facility]) 04/14/2024,9:46 [...] speak with Laly. Thank you, Maribel Smith Php Wordpress Developer I [facility] Services ([facility]) 04/13/2024,2:30 PM * Telephone Encounter - Obinna Jamil [facility] - 04/13/2024 12:53 PM EST Refused Prescriptions: Disp Refills Amphetamine-Dextroamphet ER 10 MG Oral Cap*30 Cap*0 Sig: Take 1 Capsule by mouth in the morning. Do not cut, crush or chew. Refused By: OBINNA JAMIL Reason for Refusal: Other (comment below) * Telephone Encounter - Obinna Jamil [facility] - 04/13/2024 12:53 PM EST Refused Prescriptions: Disp Refills Amphetamine-Dextroamphet ER 10 MG Oral Cap*30 Cap*0 Sig: Take 1 Capsule by mouth in the morning. Do not cut, crush or chew. Refused By: OBINNA JAMIL Reason for Refusal: Other (comment below) * Telephone Encounter - Obinna Jamil [facility] - 04/13/2024 12:52 PM EST Pt calling in to request a dose change on their Amphetamine-Dextroamphet ER. Current dose: 10mg Requested dose: 15mg Reason for request: Pt asking for increased dose Preferred pharmacy: [facility] [address] [place] [address] [facility] Patient unwilling to speak with pharmacist at this time. Routing to pharmacist pool to advise. * Telephone Encounter - Obinna Jamil [facility] - 04/13/2024 12:52 PM EST I [...] is due for refill: 04/04 [facility] [address] [place] [address] [place] Is this request for a controlled substance? Yes and Urine Drug Screen Not completed Toxicology results: No results found for this or any previous visit. Please approve if appropriate. Thanks, Obinna Jamil PharmD Clinical Pharmacist [facility] Services ([facility]) [phone] 04/13/2024,12:52 PM * Telephone Encounter - Angely Live PHARM Tech - 04/13/2024 10:13 AM EST Pt calling to check on status of rx. Caller can be reached at [phone]. Thanks, Angely Live Php Wordpress Developer [facility] Pharmacy Services ([facility]) 04/13/2024,10:13 AM * Telephone Encounter - Jeff Desir PHARM Tech - 04/11/2024 2:43 PM EST Pt calling in to request a dose change on their Amphetamine-Dextroamphet ER. Current dose: 10mg Requested dose: 15mg Reason for request: Pt asking for increased dose [facility] [address] [place] [address] [place] Patient unwilling to speak with pharmacist at this time. Routing to pharmacist pool to advise. Thanks, Jeff Cramer CPht Paper Maker III Centralized Clinical Pharmacy Services 04/11/2024,2:43 PM documented in this encounter Plan of Treatment Upcoming Encounters Date Type Department Care Team (Late st Contact Info) Description 07/17/2024 2:00 PM EDT [facility] [address] [address] June, Lizbeth Gautam MD [address] [facility] [address] [place] [address] Health Maintenance Due Date Last Done Comments [...] Primary documented in this encounter Care Teams Quality Assurance Monitor Relationship Specialty Start Date End Date June, Lizbeth Gautam MD PCP - General Family Medicine 07/12/23 documented as of this encounter
--- OUTSIDE RECORDS SUMMARY | 2024-04-29 02:47 | External Medical Summary | Summary of Care ---
Author Name Unknown Organization [facility] Address [address] [place] [address] Phone [phone] Care Team Providers Care Washhouse Worker Name Role Phone JuneLizbeth MD Primary Care Provider [phone] Reason for Visit * Reason Onset Date Comments Medication Refill 04/11/2024 Encounter Details Date Type Department Care Team (Late st Contact Info) Description 04/11/2024 [facility] [address] [place] [address] Lizbeth Wilburn MD [address] [facility] [place] [address] Medication Refill Allergies Active Allergy Reactions Criticality [...] Date Food insecurity 07/29/2023 02/03/2024 Overview: Per [facility] Protocol Appendicitis 11/28/2005 03/04/2024 Chronic respiratory disease in period 08/14/2002 07/17/2023 Low weight or infant, 5357-0555 grams 02/23/2002 03/04/2024 Other disorders of psychological [...] encounter Miscellaneous Notes * Telephone Encounter - Sissy Rees broke worker - 04/14/2024 10:14 AM EST This is a new PA request. Upon review of this prior authorization request, I verified this request is appropriate. This is prescribed by a department for which [facility] is authorized to review prior [...] note, there is nothing currently pending in [facility] for this request. Please advise how to proceed. Thanks, Sissy Rees Agency Appointments Supervisor III Centralized Clinical Pharmacy Services ([facility]) 04/14/2024,10:14 [...] follows: Patient name: Rashi Forrest ID number: [id number] BIN number: [id number] PCN number: [id number] Group number: n/a Subscriber name: Rashi Forrest Primary or Secondary Insurance:Primary Medication: Amphetamine-Dextroamphet ER 15 MG Oral Capsule Extended Release 24 Hour Reason for Request: PA is required Pharmacy and phone number: [facility] [address] [place] [address] Rx plan and phone number: Medicaid [phone] Is this a new medication for the patient? No. How did the patient obtain the medication on the lastfill? It was a different dose or frequency the last time it was filled. What alternative medications does the pharmacy have in stock?: n/a Thank you, Cici Dimas CPhT Agency Appointments Supervisor II Centralized Clinical Pharmacy Services ([facility]) 04/14/2024,9:46 [...] speak with Laly. Thank you, Maribel Smith Inventory Controller I Centralized Clinical Pharmacy Services ([facility]) 04/13/2024,2:30 PM * Telephone Encounter - Obinna Jamil [facility] - 04/13/2024 12:53 PM EST Refused Prescriptions: Disp Refills Amphetamine-Dextroamphet ER 10 MG Oral Cap*30 Cap*0 Sig: Take 1 Capsule by mouth in the morning. Do not cut, crush or chew. Refused By: OBINNA JAMIL Reason for Refusal: Other (comment below) * Telephone Encounter - Obinna Jamil [facility] - 04/13/2024 12:53 PM EST Refused Prescriptions: Disp Refills Amphetamine-Dextroamphet ER 10 MG Oral Cap*30 Cap*0 Sig: Take 1 Capsule by mouth in the morning. Do not cut, crush or chew. Refused By: OBINNA JAMIL Reason for Refusal: Other (comment below) * Telephone Encounter - Obinna Jamil [facility] - 04/13/2024 12:52 PM EST Pt calling in to request a dose change on their Amphetamine-Dextroamphet ER. Current dose: 10mg Requested dose: 15mg Reason for request: Pt asking for increased dose Preferred pharmacy: [facility] [address] [place], [place] [address] Patient unwilling to speak with pharmacist at this time. Routing to pharmacist pool to advise. * Telephone Encounter - Obinna Jamil [facility] - 04/13/2024 12:52 PM EST I have reviewed the patients controlled substance dispensing history in the Prescription Drug Monitoring Program in compliance with the [facility] regulations before prescribing a controlled [...] medication is due for refill: 04/04 Pharmacy: [facility] [address] [place] [address] [place] Is this request for a controlled substance? Yes and Urine Drug Screen Not completed Toxicology results: No results found for this or any previous visit. Please approve if appropriate. Thanks, Obinna Jamil PharmD Clinical Pharmacist Centralized Clinical Pharmacy Services ([facility]) [phone] 04/13/2024,12:52 PM * Telephone Encounter - Angely Live PHARM Tech - 04/13/2024 10:13 AM EST Pt calling to check on status of rx. Caller can be reached at [phone]. Thanks, Angely Live Inventory Controller Centralized Clinical Pharmacy Services ([facility]) 04/13/2024,10:13 AM * Telephone Encounter - Jeff Desir PHARM Tech - 04/11/2024 2:43 PM EST Pt calling in to request a dose change on their Amphetamine-Dextroamphet ER. Current dose: 10mg Requested dose: 15mg Reason for request: Pt asking for increased dose [facility] [address] [place] [address] [place] Patient unwilling to speak with pharmacist at this time. Routing to pharmacist pool to advise. Thanks, Jeff Cramer CPht Agency Appointments Supervisor III [facility] Clinical Pharmacy Services 04/11/2024,2:43 PM documented in this encounter Plan of Treatment Upcoming Encounters Date Type Department Care Team (Late st Contact Info) Description 07/17/2024 2:00 PM EDT Office Visit [facility] [place] Rj Geovany [address] [address] June, Lizbeth Gautam MD [address] [place] [address] Health Maintenance Due Date Last Done Comments [...] Primary documented in this encounter Care Teams Washhouse Worker Relationship Specialty Start Date End Date June, Lizbeth Gautam MD PCP - General Family Medicine 07/12/23 documented as of this encounter
--- OUTSIDE RECORDS SUMMARY | 2024-04-29 02:47 | External Medical Summary | Summary of Care ---
Author Name Unknown Organization [facility] Address [address] [place] [address] Phone [phone] Care Team Providers Care Foundation Engineer Name Role Phone JuneLizbeth MD Primary Care Provider [phone] Reason for Visit * Reason Onset Date Comments Medication Refill 04/11/2024 Encounter Details Date Type Department Care Team (Late st Contact Info) Description 04/11/20[facility] [address] [place] [address] Lizbeth Wilburn MD [address] [facility] [place] [address] Medication Refill Allergies Active Allergy Reactions Criticality [...] Date Food insecurity 07/29/2023 02/03/2024 Overview: Per [facility] Protocol Appendicitis 11/28/2005 03/04/2024 Chronic respiratory disease in period 08/14/2002 07/17/2023 Low weight or infant, 9406-8517 grams 02/23/2002 03/04/2024 Other disorders of psychological [...] encounter Miscellaneous Notes * Telephone Encounter - Mandie Millan [facility] - 04/14/2024 12:27 PM EST [...] upon this and route back to the [facility] pool if no decision is made by the insurance by 04/20, after clarifying with the pharmacy that the claim is still not processing. If PA is denied, please also route back to [facility]. Thank you, Mandie Millan, PharmD, SOL Clinical Pharmacist Centralized Clinical Pharmacy Services ([facility]) 04/14/24 12:27 PM [phone] * Telephone Encounter - Sissy Rees PHARM Tech - 04/14/2024 10:14 AM EST This is a new PA request. Upon review of this prior authorization request, I verified this request is appropriate. This is prescribed by a department for which [facility] is authorized to review prior authorizations [...] note, there is nothing currently pending in [employer] for this request. Please advise how to proceed. Thanks, Sissy Rees Cooker Mechanic III Centralized Clinical Pharmacy Services ([facility]) 04/14/2024,10:14 [...] follows: Patient name: Rashi Forrest ID number: [id number] BIN number: [id number] PCN number: [id number] Group number: n/a Subscriber name: Rashi Forrest Primary or Secondary Insurance:Primary Medication: Amphetamine-Dextroamphet ER 15 MG Oral Capsule Extended Release 24 Hour Reason for Request: PA is required [facility] [address] [place] [address] [place] [phone] Rx plan and phone number: Medicaid [phone] Is this a new medication for the patient? No. How did the patient obtain the medication on the lastfill? It was a different dose or frequency the last time it was filled. What alternative medications does the pharmacy have in stock?: n/a Thank you, Cici Dimas CPhT Cooker Mechanic II Centralized Clinical Pharmacy Services ([facility]) 04/14/2024,9:46 [...] Other (comment below) * Telephone Encounter - Amaya Lalyfabby Ruiz LPN - 04/13/2024 2:32 PM EST Patient [...] (comment below) * Telephone Encounter - Maribel Smtih PHARM Tech - 04/13/2024 2:29 PM EST Pt calling in regarding Adderall. Attempted to help pt with request, pt did not want to speak with me, and asked for the nurses in the office 3 times. Warm transferred to clinic nurse line to speak with Laly. Thank you, Maribel Smith Belt Buckle Maker I Centralized Clinical Pharmacy Services ([facility]) 04/13/2024,2:30 PM * Telephone Encounter - Obinna Jamil, [facility] - 04/13/2024 12:53 PM EST Refused Prescriptions: Disp Refills Amphetamine-Dextroamphet ER 10 MG Oral Cap*30 Cap*0 Sig: Take 1 Capsule by mouth in the morning. Do not cut, crush or chew. Refused By: OBINNA JAMIL Reason for Refusal: Other (comment below) * Telephone Encounter - Obinna Jamil [facility] - 04/13/2024 12:53 PM EST Refused Prescriptions: Disp Refills Amphetamine-Dextroamphet ER 10 MG Oral Cap*30 Cap*0 Sig: Take 1 Capsule by mouth in the morning. Do not cut, crush or chew. Refused By: OBINNA JAMIL Reason for Refusal: Other (comment below) * Telephone Encounter - Obinna Jamil [facility] - 04/13/2024 12:52 PM EST Pt calling in to request a dose change on their Amphetamine-Dextroamphet ER. Current dose: 10mg Requested dose: 15mg Reason for request: Pt asking for increased dose Preferred pharmacy: [facility] [address] [place] [address] [place] Patient unwilling to speak with pharmacist at this time. Routing to pharmacist [employer] to advise. * Telephone Encounter - Obinna Jamil [facility] - 04/13/2024 12:52 PM EST I have reviewed the patients controlled substance dispensing history in the Prescription Drug Monitoring Program in compliance with the [facility] regulations before prescribing a controlled substance. PDMP checked on 04/13/2024. Pending Prescriptions: Disp Refills Amphetamine-Dextroamphet ER 10 MG Oral Ca*30 Cap*0 Sig: Take 1 Capsule by mouth in the morning. Do not cut, crush or chew. Last Visit: 03/25/2024 (in office), Visit date not found (telemedicine) Next Visit: 07/17/2024 Date medication was last filled: 03/04 Date medication is due for refill: 04/04 Pharmacy: [facility] [address] [place] [address] [place] Is this request for a controlled substance? Yes and Urine Drug Screen Not completed Toxicology results: No results found for this or any previous visit. Please approve if appropriate. Thanks, Obinna Jamil PharmD Clinical Pharmacist Centralized Clinical Pharmacy Services ([facility]) [phone] 04/13/2024,12:52 PM * Telephone Encounter - Angely Live band sawyer - 04/13/2024 10:13 AM EST Pt calling to check on status of rx. Caller can be reached at [phone]. Thanks, Angely Live Belt Buckle Maker Centralized Clinical Pharmacy Services ([facility]) 04/13/2024,10:13 AM * Telephone Encounter - Jeff Desir PHARM Tech - 04/11/2024 2:43 PM EST Pt calling in to request a dose change on their Amphetamine-Dextroamphet ER. Current dose: 10mg Requested dose: 15mg Reason for request: Pt asking for increased dose [facility] [address] [place] [place] [address] Patient unwilling to speak with pharmacist at this time. Routing to pharmacist pool to advise. Thanks, Jeff Cramer [facility] Cooker Mechanic III Centralized Clinical Pharmacy Services 04/11/2024,2:43 PM documented in this encounter Plan of Treatment Upcoming Encounters Date Type Department Care Team (Late st Contact Info) Description 07/17/2024 2:00 PM EDT Office Visit [facility] [address] [id number] June, Lizbeth Gautam MD [address] [facility] [address] [place] [address] Health Maintenance Due Date Last Done Comments [...] Primary documented in this encounter Care Teams Foundation Engineer Relationship Specialty Start Date End Date June, Lizbeth Gautam MD PCP - General Family Medicine 07/12/23 documented as of this encounter
--- OUTSIDE RECORDS SUMMARY | 2024-04-29 02:47 | External Medical Summary | Summary of Care ---
Author Name Unknown Organization [facility] Address [address] [facility] [place] [address] Phone [phone] Care Team Providers Care Chairperson Anesthesiology Name Role Phone Andrei Farris MD Primary Care Provider [phone] Encounter Details Date Type Department Care Team (Late st Contact Info) Description 03/26/2024 Population Health External Data Unspecified Department Allergies Active Allergy Reactions Criticality Noted Date Comments Metoclopramide 02/23/2002 reglan, rapid eye movement documented as of this encounter (statuses as of 03/26/2024) Medications busPIRone HCl 5 MG Oral Tablet (Buspar)Indication s:BEVERLY (generalized anxiety disorder) Take 1 Tablet by mouth 2 times a day as needed for anxiety. 90 Tablet 3 01/23/2024 7:43 AM EST 4 Active Escitalopram Oxalate 20 MG Oral Tablet (Lexapro)Indicatio ns:BEVERLY (generalized anxiety disorder) Take 1 Tablet by mouth in the morning. 90 Tablet 3 01/23/2024 7:43 AM EST 4 Active traZODone HCl 100 MG Oral Tablet (Desyrel)Indicatio [...] for Cough. 50 Capsule 1 5 Active Amphetamine-Dextro amphet ER 10 MG Oral Capsule Extended Release 24 Hour (Adderall XR)Indications:Att ention or concentration deficit Take 1 Capsule by mouth in the morning. Do not cut, crush or chew. 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 documented as of this encounter (statuses as of 03/26/2024) Resolved Problems Problem Noted Date Diagnosed Date Resolved Date Food insecurity 07/29/2023 02/03/2024 Overview: Per [facility] Protocol Appendicitis 11/28/2005 03/04/2024 Chronic respiratory disease in period 08/14/2002 07/17/2023 Low weight or infant, 9758-5447 grams 02/23/2002 03/04/2024 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 Overview (12/11/2016): ICD-10 update of inactive term documented as of this encounter (statuses as of 03/26/2024) Immunizations Name Administration Dates Next Due HIB [...] AM EDT documented as of this encounter Plan of Treatment Upcoming Encounters Date Type Department Care Team (Late st Contact Info) Description 07/17/2024 2:00 PM EDT Office Visit [facility] Rj Armenta [address] [address] June, Andrei Gautam MD [address] [address] Health Maintenance Due Date Last Done Comments COVID-19 Vaccine ( season) 2023 02/14/2021, 07/02/2020, 06/04/2020 Depression Screening 07/16/2024 07/17/2023 DTap/Tdap Vaccines (7 - Td or Tdap) 07/26/2024 07/26/2014, 10/09/2006, 03/18/2003, Additional history exists Hepatitis B Vaccine Completed 09/08/2002, 01/26/2002, 2001 HPV (Gardasil) Vaccine Completed 10/10/2015, 2014 MENINGOCOCCAL (MENACTRA/MENVEO) Completed 04/25/2018, 07/26/2014 Influenza Vaccine (FLU shot) Completed 02/2023, 05/14/2023, 03/28/2020, Additional history exists Pneumococcal Vaccine: Pediatrics (0 to 5 Years) and At-Risk Patients (6 to 18 Years and 19+ Years) Aged Out No longer eligib le based on patient's age to complete this topic documented as of this encounter Medical Devices Not on filedocumented as of this encounter Care Teams Chairperson Anesthesiology Relationship Specialty Start Date End Date June, Andrei Gautam MD PCP - General Family Medicine 07/12/23 documented as of this encounter
--- OUTSIDE RECORDS SUMMARY | 2024-04-29 02:47 | External Medical Summary | Summary of Care ---
Author Name Unknown Organization [facility] Address [address] [place] [facility] [place] [address] Phone [phone] Care Team Providers Care Teaching Manager Name Role Phone Andrei Farris MD Primary Care Provider [phone] Encounter Details Date Type Department Care Team (Late st Contact Info) Description 03/08/2024 Result Scan Unspecified Department <No scans attached> Allergies Active Allergy Reactions Criticality Noted Date Comments Metoclopramide 02/23/2002 reglan, rapid eye movement documented as of this encounter (statuses as of 03/10/2024) Medications busPIRone HCl 5 MG Oral Tablet [...] as of this encounter (statuses as of 03/10/2024) Active Problems Problem Noted Date Diagnosed Date Attention deficit hyperactiv ity disorder (ADHD), predominantly inattentive type 03/04/2024 BEVERLY (generalized anxiety disorder) 10/09/2023 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 documented as of this encounter (statuses as of 03/10/2024) Resolved Problems Problem Noted Date Diagnosed Date Resolved Date Food insecurity 07/29/2023 02/03/2024 Overview: Per [facility] Protocol Appendicitis 11/28/2005 03/04/2024 Chronic respiratory disease in period 08/14/2002 07/17/2023 Low weight or infant, 9422-0048 grams 02/23/2002 03/04/2024 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 Overview (12/11/2016): ICD-10 update of inactive term documented as of this encounter (statuses as of 03/10/2024) Immunizations Name Administration Dates Next Due HIB [...] Years Used Date Smoking Tobacco: Former Vaporizer Smokeless Tobacco: Never Alcohol Use Standard Drinks/Week [...] ages 0-17 years) Not on file 01/09/2024 Sex and Gender Information Value Date Recorded Sex Assigned at Male 07/03/2023 8:52 AM EDT Legal Sex Male 5:46 AM EST Gender Identity Male 07/03/2023 8:52 AM EDT Sexual Orientation Straight 07/03/2023 8: 52 AM EDT documented as of this encounter Plan of Treatment Upcoming Encounters Date Type Department Care Team (Late st Contact Info) Description 03/25/2024 3:00 PM EST [facility] [phone] June, Andrei Gautam MD [address] [address] 07/17/2024 2:00 PM EDT [facility] [address] [phone] JuneAndrei MD [address] [address] Health Maintenance Due Date Last Done [...] Not on filedocumented as of this encounter Procedures Procedure Name Priority Date/Time Associated Diagnosis Comments EKG SCANNED RESULT 03/08/2024 documented in this encounter Results * EKG SCANNED RESULT (03/08/2024) 03/08/2024 us No Physician Data Unknown EKG Final Result documented in this encounter Care Teams Teaching Manager Relationship Specialty Start Date End Date June, Andrei Gautam MD PCP - General Family Medicine 07/12/23 documented as of this encounter
--- OUTSIDE RECORDS SUMMARY | 2024-04-29 02:47 | External Medical Summary | Summary of Care ---
Author Name Unknown Organization [facility] Address [address] [facility] [place] [address] Phone [phone] Care Team Providers Care Wheel Truer Name Role Phone Andrei Farris MD Primary Care Provider [phone] Encounter Details Date Type Department Care Team (Late st Contact Info) Description 03/12/2024 Population Health External Data Unspecified Department Allergies Active Allergy Reactions Criticality Noted Date Comments Metoclopramide 02/23/2002 reglan, rapid eye movement documented as of this encounter (statuses as of 03/12/2024) Medications busPIRone HCl 5 MG Oral Tablet [...] as of this encounter (statuses as of 03/12/2024) Active Problems Problem Noted Date Diagnosed Date Attention deficit hyperactiv ity disorder (ADHD), predominantly inattentive type 03/04/2024 BEVERLY (generalized anxiety disorder) 10/09/2023 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 documented as of this encounter (statuses as of 03/12/2024) Resolved Problems Problem Noted Date Diagnosed Date Resolved Date Food insecurity 07/29/2023 02/03/2024 Overview: Per [facility] Protocol Appendicitis 11/28/2005 03/04/2024 Chronic respiratory disease in period 08/14/2002 07/17/2023 Low weight or infant, 4128-7196 grams 02/23/2002 03/04/2024 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 Overview (12/11/2016): ICD-10 update of inactive term documented as of this encounter (statuses as of 03/12/2024) Immunizations Name Administration Dates Next Due HIB [...] PM EST [facility] [address] June, Andrei Gautam MD [address] [place] [address] 07/17/2024 2:00 PM EDT [facility] [address] [address] June, Andrei Gautam MD [address] [id number] Health Maintenance Due Date Last Done Comments [...] filedocumented as of this encounter Care Teams Wheel Truer Relationship Specialty Start Date End Date June, Andrei Gautam MD PCP - General Family Medicine 07/12/23 documented as of this encounter
--- OUTSIDE RECORDS SUMMARY | 2024-04-29 02:47 | External Medical Summary | Summary of Care ---
Author Name Unknown Organization [facility] Address [address] [place] [address] Phone [phone] Care Team Providers Care Calender Inspector Name Role Phone Andrei Farris MD Primary Care Provider [phone] Reason for Referral * Evaluate & Treat - Unlimited Visits (Within 10 days (routine)) - Authorized Specialty Diagnoses / Procedures Referred By Contac t Referred To Contact Ophthalmology Diagnoses Family history of glaucoma Andrei Farris MD [address] [place] [address] Phone: tel: fax: Referral ID Status Reason Start Date Expiration Date Visits Requested Visits Authorized [id number] Authorized Specialty Services Required 03/25/2024 [id number] Question Answer Referral Priority Within 10 days (routine) Where should this appointment be scheduled? External - [facility] Referring for: Ophthalmology Conditions Ophthalmology Conditions Other Ophthalmology (comment) - Per optometry recommendations, family history of glaucoma Reason for Visit * Reason Comments Follow Up Med check-requesting referral for eye doctor Encounter Details Date Type Department Care Team (Late st Contact Info) Description 03/25/2024 3:00 PM EST [facility] [address] [place] [phone] Andrei Farris MD [address] [address] Attention deficit hyperactivity disorder (ADHD), predominantly inattentive type*; BEVERLY (generalized anxiety disorder); Family history of glaucoma Allergies Active Allergy Reactions Criticality Noted Date [...] Date Food insecurity 07/29/2023 02/03/2024 Overview: Per [facility] Protocol Appendicitis 11/28/2005 03/04/2024 Chronic respiratory disease in period 08/14/2002 07/17/2023 Low weight or , 4903-3323 grams 02/23/2002 03/04/2024 Other disorders of psychological [...] AM EDT documented as of this encounter Last Filed Vital Signs Vital Sign Reading Time Taken Comments Blood Pressure 108/60 03/25/2024 3:03 PM EST Pulse 68 03/25/2024 3:03 PM EST Temperature 36.8 C (98.2 F) 03/25/2024 3:03 PM ES T Respiratory Rate 16 03/25/2024 3:03 PM EST Oxygen Saturation - - Inhaled Oxygen Concentration - - Weight 64.9 kg (143 lb) 03/25/2024 3:03 PM EST Height 170.2 cm (5' 7") 03/25/2024 3:03 PM EST Body Mass Index 22.4 03/25/2024 3:03 PM EST documented in this encounter Progress Notes * Andrei Farris MD - 03/25/2024 3:14 PM EST Images from the original note were not included. Subjective Villi oLn is a 23 year old male that presents for Follow Up (Med check- requesting referral for eye doctor ) History of Present Illness Villi Lon is a 23 year old male with generalized anxiety and ADHD who presents for follow up. He is currently taking 10 mg of Adderall for ADHD, which he feels is the appropriate dose. He has not experienced any significant side effects since the initial adjustment period, where he had heart pains that resolved after a few days. For anxiety, he continues to use Lexapro 20 mg and Buspar as needed, which have been effective, especially around exam times. No anxiety on the day of exams, indicating good control of symptoms. He has not needed to use Imitrex recently as he has not experienced headaches for a while. He attributes this to dietary changes since starting school, including increased vegetable intake and eatingmore regularly. No significant weight gain and maintains a healthy BMI of 22. Regarding sleep, he occasionally uses trazodone but has not needed a full dose in a long time, often taking only a half or quarter dose. This suggests that his sleep issues are under reasonable control. He discusses his need for a referral to an service delivery supervisor due to a family history of glaucoma, as his father has the condition. He previously saw an videogame designer who noted an enlarged bright yellow part in his eyes, prompting the recommendation for further evaluation by an service delivery supervisor. Objective Vitals: 03/25/24 1503 Temp: 98.2 F (36.8 C) Pulse: 68 Resp: 16 BP: 108/60 BMI: 22.39 Physical Exam MEASUREMENTS: BMI- 22 Physical Exam Vitals reviewed. Constitutional: General: He is not in acute distress. Pulmonary: Effort: Pulmonary effort is normal. No respiratory distress. Neurological: General: No focal deficit present. Mental Status: He is alert. I have reviewed the following results: Results RADIOLOGY Fundus photography: Notable enlargement of the bright yellow area Assessment and Plan Assessment & Plan ADHD Stable on Adderall 10mg. No current need for dose adjustment. -Continue Adderall 10mg. -Message provider in 1 week for refill. Generalized Anxiety Stable on Lexapro 20mg and Buspar. Noted significant reduction in anxiety, particularly before exams. -Continue Lexapro 20mg and Buspar. Insomnia Occasional use of Trazodone. No current issues with sleep. -Continue Trazodone as needed for sleep. Migraine Infrequent headaches, managed with Tylenol. No recent need for Imitrex. -Continue Imitrex as needed for migraines. Eye Health Interior Design Professor recommended ophthalmology eval based on recent eye exam and family history of glaucoma. -Referral to service delivery supervisor at [facility] for further evaluation. Follow-up Next appointment scheduled for July 17, 2024. Attention deficit hyperactivity disorder (ADHD), predominantly inattentive type (Primary) BEVERLY (generalized anxiety disorder) Family history of glaucoma - ADULT/PEDS OPHTHALMOLOGY/OPTOMETRY REFERRAL OP Wrap-Up Follow-up: Return if symptoms worsen or fail to improve. | Check-out note: Please help with ophthalmology referral. Andrei Farris MD Text in this note was generated using an [employer] service. I discussed the use of a device to record and summarize our discussion today. All persons present during the encounter consented to its use. documented in this encounter Nursing Notes * Lovely Pinzon LPN - 03/25/2024 3:03 PM EST The patient has been properly identified by confirmation of name and date of . Chief Complaint Patient presents with Follow Up Med check-requesting referral for eye doctor documented in this encounter Plan of Treatment Upcoming Encounters Date Type Department Care Team (Late st Contact Info) Description 07/17/2024 2:00 PM EDT Office Visit [facility] [address] [place] [phone] Andrei Farris MD [address] [phone] Scheduled Referrals Name Type Priority Associated Diagnoses Orde r Schedule ADULT/PEDS OPHTHALMOLOGY/OPTOM ETRY REFERRAL OP Referral Within 10 days (routine) Family history of glaucoma Ordered: 03/25/2024 Health Maintenance Due Date Last Done Comments [...] of this encounter Visit Diagnoses Diagnosis Attention deficit hyperactivity disorder (ADHD), predominantly inattentive type- Primary BEVERLY (generalized anxiety disorder) Generalized anxiety disorder Family history of glaucoma documented in this encounter Care Teams Calender Inspector Relationship Specialty Start Date End Date June, Andrei Gautam MD PCP - General Family Medicine 07/12/23 documented as of this encounter
--- OUTSIDE RECORDS SUMMARY | 2024-04-29 02:47 | External Medical Summary | Summary of Care ---
Author Name Unknown Organization [facility] Address [address] [place] [address] Phone [phone] Care Team Providers Care Business Technology Analyst Name Role Phone JuneLizbeth MD Primary Care Provider [phone] Reason for Visit * Reason Onset Date Comments Medication Refill 04/11/2024 Encounter Details Date Type Department Care Team (Late st Contact Info) Description 04/11/2024 Refill [facility] [place] [address] [place] [phone] Lizbeth Wilburn MD [address] [place] [place] [address] Attention or concentration deficit* Allergies Active Allergy Reactions Criticality Noted Date [...] Date Food insecurity 07/29/2023 02/03/2024 Overview: Per [facility] Protocol Appendicitis 11/28/2005 03/04/2024 Chronic respiratory disease in period 08/14/2002 07/17/2023 Low weight or , 3756-4507 grams 02/23/2002 03/04/2024 Other disorders of psychological [...] speak with Laly. Thank you, Maribel Smith Sales Consultant Insurance I [facility] 04/13/2024,2:30 PM * Telephone Encounter - Obinna Jamil [facility] - 04/13/2024 12:53 PM EST Refused Prescriptions: Disp Refills Amphetamine-Dextroamphet ER 10 MG Oral Cap*30 Cap*0 Sig: Take 1 Capsule by mouth in the morning. Do not cut, crush or chew. Refused By: OBINNA JAMIL Reason for Refusal: Other (comment below) * Telephone Encounter - Obinna Jamil [facility] - 04/13/2024 12:53 PM EST Refused Prescriptions: Disp Refills Amphetamine-Dextroamphet ER 10 MG Oral Cap*30 Cap*0 Sig: Take 1 Capsule by mouth in the morning. Do not cut, crush or chew. Refused By: OBINNA JAMIL Reason for Refusal: Other (comment below) * Telephone Encounter - Obinna Jamil [facility] - 04/13/2024 12:52 PM EST Pt calling in to request a dose change on their Amphetamine-Dextroamphet ER. Current dose: 10mg Requested dose: 15mg Reason for request: Pt asking for increased dose Preferred pharmacy: [facility] [address] [place], [place] [address] Patient unwilling to speak with pharmacist at this time. Routing to pharmacist pool to advise. * Telephone Encounter - Obinna Jamil [facility] - 04/13/2024 12:52 PM EST I have [...] medication is due for refill: 04/04 Pharmacy: [facility] [address] [place] [address] [place] Is this request for a controlled substance? Yes and Urine Drug Screen Not completed Toxicology results: No results found for this or any previous visit. Please approve if appropriate. Thanks, Obinna Jamil PharmD Clinical Pharmacist [facility] [phone] 04/13/2024,12:52 PM * Telephone Encounter - Angely [facility] - 04/13/2024 10:13 AM EST Pt calling to check on status of rx. Caller can be reached at [phone]. Thanks, Angely Live Sales Consultant Insurance [facility] 04/13/2024,10:13 AM * Telephone Encounter - Jeff Desir PHARM Tech - 04/11/2024 2:43 PM EST Pt calling in to request a dose change on their Amphetamine-Dextroamphet ER. Current dose: 10mg Requested dose: 15mg Reason for request: Pt asking for increased dose Preferred pharmacy: [facility] [address] [place] [address] [place] Patient unwilling to speak with pharmacist at this time. Routing to pharmacist pool to advise. Thanks, Jeff Cramer [facility] Merchandiser Seasonal III [facility] 04/11/2024,2:43 PM documented in this encounter Plan of Treatment Upcoming Encounters Date Type Department Care Team (Late st Contact Info) Description 07/17/2024 2:00 PM EDT Office Visit [facility] [address] [place] [phone] June, Lizbeth Gautam MD [address] [address] Health Maintenance Due Date Last Done Comments [...] Primary documented in this encounter Care Teams Business Technology Analyst Relationship Specialty Start Date End Date June, Lizbeth Gautam MD PCP - General Family Medicine 07/12/23 documented as of this encounter
--- OUTSIDE RECORDS SUMMARY | 2024-04-29 02:48 | External Medical Summary | Summary of Care ---
Author Name Unknown Organization [facility] Address [address] [place] [address] Phone [phone] Care Team Providers Care Sample Mounter Name Role Phone JuneAndrei MD Primary Care Provider [phone] Reason for Visit * Reason Comments Emergency Department Follow-Up Pt here f or ER visit follow up Encounter Details Date Type Department Care Team (Late st Contact Info) Description 03/09/2024 12:40 PM EST [facility] [address] [place] [phone] Andrei Farris MD [address] [place] [address] Attention deficit hyperactivity disorder (ADHD), predominantly inattentive type*; Non-cardiac chest pain; BEVERLY (generalized anxiety disorder) Allergies Active Allergy Reactions Criticality Noted Date Comments Metoclopramide 02/23/2002 reglan, rapid eye movement documented as of this encounter (statuses as of 03/09/2024) Medications busPIRone HCl 5 MG Oral Tablet [...] as of this encounter (statuses as of 03/09/2024) Active Problems Problem Noted Date Diagnosed Date Attention deficit hyperactiv ity disorder (ADHD), predominantly inattentive type 03/04/2024 BEVERLY (generalized anxiety disorder) 10/09/2023 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 documented as of this encounter (statuses as of 03/09/2024) Resolved Problems Problem Noted Date Diagnosed Date Resolved Date Food insecurity 07/29/2023 02/03/2024 Overview: Per [facility] Protocol Appendicitis 11/28/2005 03/04/2024 Chronic respiratory disease in period 08/14/2002 07/17/2023 Low weight or , 1410-1164 grams 02/23/2002 03/04/2024 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 Overview (12/11/2016): ICD-10 update of inactive term documented as of this encounter (statuses as of 03/09/2024) Immunizations Name Administration Dates Next Due HIB [...] Passive Smoke Exposure: Past Smokeless Tobacco: Never Tobacco Cessation:Counseling Given: Not Answered Alcohol Use Standard Drinks/Week Comments Yes 0 [...] Sign Reading Time Taken Comments Blood Pressure 128/74 03/09/2024 12:34 PM EST Pulse 85 03/09/2024 12:34 PM EST Temperature 36.7 C (98 F) 03/09/2024 12:34 PM EST Respiratory Rate 16 03/09/2024 12:34 PM EST Oxygen Saturation 98% 03/09/2024 12:34 PM EST Inhaled Oxygen Concentration - - Weight 67.6 kg (149 lb) 03/09/2024 12:34 PM EST Height - - Body Mass Index 23.34 03/04/2024 4:02 PM EST documented in this encounter Progress Notes * Andrei Farris MD - 03/09/2024 1:09 PM EST Images from the original note were not included. Tony Forrest is a 23 year old male that presents for Emergency Department Follow-Up (Pt here for ERvisit follow up) History of Present Illness A 23-year-old with a past medical history of generalized anxiety disorder and ADHD recently startedon Adderall XR. He presented to [facility] ER on 03/08/2024 due to substernal chest pain, which was different from his usual panic attacks. The pain was associated with anxiety. Despite having a history of anxiety, he has not had a panic attack in the past few months. The emergency room visit included an EKG, lab work, and a chest x-ray, all of which were reportedly unremarkable. Currently, he reports atwo out of ten substernal chest pain. He has not taken his Adderall yet today. Objective Vitals: 03/09/24 1234 Temp: 98 F (36.7 C) Pulse: 85 Resp: 16 SpO2: 98% BP: 128/74 Physical Exam GENERAL: Within normal limits. Physical Exam Vitals reviewed. Pulmonary: Effort: Pulmonary effort is normal. No respiratory distress. Neurological: General: No focal deficit present. Psychiatric: Mood and Affect: Mood normal. Behavior: Behavior normal. I have reviewed the following results: Results RADIOLOGY Chest X-ray: Unremarkable (03/08/2024) DIAGNOSTIC EKG: Normal, no signs of ischemia (03/08/2024) Assessment and Plan Assessment & Plan Chest Pain 23-year-old male with generalized anxiety disorder and ADHD, presenting with substernal chest pain rated 2/10. Pain associated with anxiety but different from previous panic attacks. Recently startedAdderall XR 10 mg, initially well- tolerated. ER evaluation: non-ischemic EKG, unremarkable labs, normal chest x- ray. Differential includes GERD and anxiety-related symptoms. Cardiac disease very unlikely based on this single episode. 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 Joint decision to continue Adderall XR 10 mg after discussing risks and benefits. Reconsider Adderall if further episodes occur. - Continue Adderall XR 10 mg - Review ED notes to confirm no further testing required - Use Pepcid or Tums for potential GERD - Reconsider Adderall if further episodes occur Generalized Anxiety Disorder Current chest pain episode associated with anxiety but different from previous panic attacks. No recent panic attacks reported. - Monitor anxiety symptoms - Reevaluate if symptoms worsen Attention Deficit Hyperactivity Disorder (ADHD) Recently restarted on Adderall XR 10 mg. 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 - Continue Adderall XR 10 mg - Reevaluate if further chest pain episodes occur. Attention deficit hyperactivity disorder (ADHD), predominantly inattentive type (Primary) Non-cardiac chest pain BEVERLY (generalized anxiety disorder) Wrap-Up Follow Up: Return if symptoms worsen or fail to improve. Text in this note was generated using an ambient documentation service. I discussed the use of a device to record and summarize our discussion today. All persons present during the encounter consented to its use. documented in this encounter Nursing Notes * Osiris Willett LPN - 03/09/2024 12:33 PM EST Chief Complaint Patient presents with Emergency Department Follow-Up Pt here for ER visit follow up documented in this encounter Plan of Treatment Upcoming Encounters Date Type Department Care Team ([facility] st Contact Info) Description 03/25/2024 3:00 PM EST Office Visit [facility] [place] [address] [place] [phone] JuneAndrei MD [address] [place] [address] 07/17/2024 2:00 PM EDT Office Visit [facility] [place] [address] [place] [phone] JuneAndrei MD [address] [place] [address] Health Maintenance Due Date Last Done [...] hyperactivity disorder (ADHD), predominantly inattentive type- Primary Non-cardiac chest pain Other chest pain BEVERLY (generalized anxiety disorder) Generalized anxiety disorder documented in this encounter Care Teams Sample Mounter Relationship Specialty Start Date End Date June, Andrei Gautam MD PCP - General Family Medicine 07/12/23 documented as of this encounter
[2024-04-29 03:02] LABS: Albumin Level 4.8 gm/dl (3.4-5.0); Bilirubin,Total 1.5 mg/dl (0.2-1.0); Globulin 2.4 gm/dl (2.5-4.0); Total Protein 7.2 gm/dl (6.0-8.3)
[2024-04-29 03:04] LABS: Appearance Urine Clear (Clear); Bacteria Urine Automated None Seen (None Seen); Bilirubin Urine Negative (Negative); Blood Urine Negative (Negative); Cast Urine Automated 0-2 /lpf (0-2); Color Urine Yellow; Epithelial Cell Urine Auto 0-2 /hpf (0-2); Glucose Urine UA Negative (Negative); Ketones Urine 1+ (Negative); Leukocyte Esterase Urine 1+ (Negative); Nitrite Urine Negative (Negative); Protein Urine Negative (Negative); RBC Urine Automated 0-2 /hpf (0-2); Specific Gravity Urine 1.016 (1.000-1.030); Urobilinogen Urine Negative (Negative); WBC Urine Automated 21-50 /hpf (0-5)
[2024-04-29 03:27] LABS: Adenovirus PCR Not Detected (NotDetected); Bordetella parapertussis PCR Not Detected (NotDetected); Bordetella pertussis PCR Not Detected (NotDetected); Chlamydia pneumoniae PCR Not Detected (NotDetected); Coronavirus 229E PCR Not Detected (NotDetected); Coronavirus CoV-2 (COVID19)PCR Not Detected (NotDetected); Coronavirus HKU1 PCR Not Detected (NotDetected); Coronavirus NL63 PCR Not Detected (NotDetected); Coronavirus OC43PCR Not Detected (NotDetected); Human Metapneumovirus PCR Not Detected (NotDetected); Influenza A PCR Not Detected (NotDetected); Influenza B PCR Not Detected (NotDetected); Mycoplasma pneumoniae PCR Not Detected (NotDetected); Parainfluenza Virus 1 PCR Not Detected (NotDetected); Parainfluenza Virus 2 PCR Not Detected (NotDetected); Parainfluenza Virus 3 PCR Not Detected (NotDetected); Parainfluenza Virus 4 PCR Not Detected (NotDetected); Respiratory Syncytial VirusPCR Not Detected (NotDetected); Rhinovirus/Enterovirus PCR Not Detected (NotDetected)
--- NOTE | 2024-04-29 03:46 | CT Scan Report ---
EXAM: CT abd pelvis wo con CLINICAL HISTORY: abdominal pain, nausea, vomiting and diarrhea, history of appendectomy TECHNIQUE: CT of the abdomen and pelvis was performed, with the following protocol: axial images, and reconstructed coronal and sagittal images. No intravenous contrast was administered. One of the following dose reduction techniques was utilized for this exam: Automated exposure control, adjustment of the mA and/or kV according to patient size, and use of iterative reconstruction. COMPARISON: None. FINDINGS: Abdomen: Liver: Normal in size, and density. No focal lesions, cysts, or masses were identified. Gallbladder and Biliary System: The gallbladder is normal in size and shape. No wall thickening, pericholecystic fluid, or gallstones were identified. Pancreas: Pancreatic head, body, and tail are visualized and appear normal in size and density. No pancreatic masses or calcifications were noted. Spleen: Normal in size, shape, and density. No splenic lesions or masses were identified. Kidneys and Adrenal Glands: Both kidneys are normal in size, shape, and position. No renal calculi or hydronephrosis. Adrenal glands are unremarkable. Pelvis: Urinary Bladder: Normal in contour and wall thickness. Prostate appears unremarkable. Peritoneal and Retroperitoneal Structures: No free fluid or abnormal fluid collections were identified within the abdomen or pelvis. Subcentimetric non-specific mesenteric nodes. Mild mesenteric haziness and congestion near the site of possible intussusception. Bowel: Suggestion of telescoping of a proximal jejunal bowel loop in adjacent Jejunum in right upper quadrant anterior to right kidney with borderline distension of fluid filled proximal small bowel loops in abdomen, measuring 27 mm in maximum thickness.Possibility of intussusception. Fat attenuation is seen in the intussusceptum, this could be due to mesentery versus small lipoma. Post appendicectomy status. Bones and Soft Tissues: Unremarkable. IMPRESSION: 1. Suspicion of a short length transient intussusception in proximal jejunum (limited details due to lack of oral contrast). Advise clinical correlation and follow up. 2. Mild mesenteric haziness and congestion near this site 3. No evidence of bowel obstruction. Electronically signed by Jose Luis Barnhart 04-29-2024 03:46 AM
[2024-04-29 03:51] LABS: Cdiff Toxin B Gene (2yr or >) Positive Cdiff Gene (Neg)
--- NOTE | 2024-04-29 04:04 | History & Physical Report ---
Date of Service April 29, 2024 Assessment & Plan (1) Abdominal pain: Plan: Abdominal pain Multifactorial: Acute pancreatitis, past history EtOH abuse, patient denies current alcohol abuse, admits to alcohol intake over the weekend but denies binging Possible bowel intussusception on noncontrast imaging LGIB, gastroenteritis, C. difficile gene positive, toxin negative, recent Augmentin Rx for sinusitis, patient not septic ADHD, mood disorder, at baseline Hyperglycemia rule out DM past tobacco/alcohol abuse Admit to medical Bowel rest, IVF GI consult re: pancreatitis General Surgery consult Re: Abdominal pain, possible bowel intussusception on imaging (Patient already seen by provider who recommends gallbladder ultrasound to rule out cholecystitis and contrast study of the abdomen pelvis) RAFAEL S at risk protocol, DT precautions Oral vancomycin course DVT prophylaxis. SCDs given LGIB Full code Text document was generated using [employer] voice recognition software. It may contain grammatical or spelling errors. Kindly contact undersigned for clarification of any documentation item in question. History of Present Illness Chief Complaint: Abdominal pain Primary Care Provider: Andrei Farris MD History obtained from patient and records. Medical history significant for ADHD, mood disorder, migraine, past tobacco/alcohol abuse. Last week, patient noted sinus congestion symptoms without fever, chills. Outpatient Augmentin course prescribed for possible sinusitis. Yesterday, patient noted achy epigastric pain associated with nausea, bilious emesis. Short of breath from pain. Denies chest pain. Loose stools with some blood streaking. Last EtOH intake was over the weekend for his graduation celebration. Denies binging. Patient consulted ER for worsening symptoms. 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 Allergies Allergy/AdvReac Type Severity Reaction Status Date / Time metoclopramide Allergy Mild Unknown Verified 04/29/24 06:20 Home Medications Medication Instructions Recorded Confirmed Type benzonatate 200 mg capsule 200 mg PO TID PRN Cough 04/29/24 04/29/24 History buspirone 5 mg tablet 5 mg PO QID PRN Anxiety 04/29/24 04/29/24 History dextroamphetamine-amphetamine ER 10 mg PO QAM 04/29/24 04/29/24 History 10 mg 24hr capsule,extend release escitalopram oxalate 20 mg tablet 20 mg PO QAM 04/29/24 04/29/24 History sumatriptan succinate 25 mg tablet 25 mg PO UD PRN Migraine Headache 04/29/24 04/29/24 History Past Med/Surg History Problem List (Updated 04/29/24 @ 05:27 by Thomas Dean PA-C) Nausea, vomiting, and diarrhea (Acute) Enteritis due to Clostridium difficile (Acute) Acute generalized abdominal pain (Acute) Acute pancreatitis (Acute) Pancreatitis Abdominal pain Anxiety (Chronic) ADD (attention deficit disorder) (Chronic) Nevus of back Benign paroxysmal positional nystagmus (Acute) Surgical History History of appendectomy Family History Mother No problems noted. 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 Feels Safe at Home: Yes Safety Concerns: Feels Safe At This Time Diet: regular caffeine: No Dental Care, Regularly: No Physical Activity Frequency: 3-4 Times per Week Seatbelt Use: always Sunscreen Use: Yes Assistive Devices: None Review of Systems Review of Systems: As per HPI, all other systems reviewed and negative Physical Exam Physical Exam: GENERAL: Comfortable, pleasant, slightly anxious, no respiratory distress SKIN: Normal color, warm HEENT: [place] palpebral conjunctivae, no ptosis, dry buccal mucosa NECK : Supple, no tenderness CHEST : CTA, no tenderness HEART : RRR, no obvious murmurs ABDOMEN: Some distention, epigastric tenderness EXTREMITIES : No LE swelling/tenderness, palpable pulses, no other conspicuous deformities noted NEUROLOGIC : Coherent, no facial asymmetry, no other gross focality Results & Data Results & Data Vital Signs (Past 12 Hours) Vital Signs Temp Pulse Resp BP Pulse Ox O2 Del Method 04/29/24 03:03 99 H 17 132/84 96 Room Air 04/29/24 03:00 91 H 18 96 Room Air 04/29/24 02:39 96 H 04/29/24 01:51 Room Air 04/29/24 01:43 36.7 C 113 H 20 121/80 97 Room Air 04/29/24 01:38 Room Air Laboratory Results Laboratory Results WBC 10.84 K/ul (4.8-10.8) H 04/29/24 02:06 RBC 4.95 M/uL (4.70-6.10) 04/29/24 02:06 Hgb 14.0 g/dl (14.0-18.0) 04/29/24 02:06 Hct 40.6 % (42.0-52.0) L 04/29/24 02:06 MCV 82.0 fL (80.0-100.0) 04/29/24 02:06 MCH 28.3 pg (25.0-34.0) 04/29/24 02:06 MCHC 34.5 g/dL (32.0-36.0) 04/29/24 02:06 RDW Std Deviation 38.5 fL (36.4-46.3) 04/29/24 02:06 RDW Coeff of [place] 12.9 % (11.5-14.5) 04/29/24 02:06 Plt Count 216 K/uL (130-400) 04/29/24 02:06 MPV 11.0 fL (9.4-12.4) 04/29/24 02:06 Immature Gran % (Auto) 0.3 % 04/29/24 02:06 Neut % (Auto) 77.5 % 04/29/24 02:06 Lymph % (Auto) 14.1 % 04/29/24 02:06 [place] % (Auto) 7.0 % 04/29/24 02:06 Eos % (Auto) 0.6 % 04/29/24 02:06 Baso % (Auto) 0.5 % 04/29/24 02:06 Neut # (Auto) 8.41 K/uL (1.40-6.50) H 04/29/24 02:06 Lymph # (Auto) 1.53 K/uL (1.20-3.40) 04/29/24 02:06 [place] # (Auto) 0.76 K/uL (0.11-0.59) H 04/29/24 02:06 Eos # (Auto) 0.06 K/uL (0.00-0.50) 04/29/24 02:06 Baso # (Auto) 0.05 K/uL (0.00-0.20) 04/29/24 02:06 Immature Gran # (Auto) 0.03 K/uL (0.01-0.20) 04/29/24 02:06 Sodium 136 mmol/L (136-145) 04/29/24 02:06 Potassium 3.5 mmol/L (3.5-5.1) 04/29/24 02:06 Chloride 103 mmol/L (98-107) 04/29/24 02:06 Carbon Dioxide 24 mmol/L (21-32) 04/29/24 02:06 Anion Gap 9 (3-11) 04/29/24 02:06 BUN 16 mg/dl (6-23) 04/29/24 02:06 Creatinine 0.84 mg/dl (0.6-1.4) 04/29/24 02:06 Est Cr Clr Drug Dosing 129.0 ml/min 04/29/24 02:06 eGFR 126.45 04/29/24 02:06 BUN/Creatinine Ratio 19.0 (10-20) 04/29/24 02:06 Glucose 127 mg/dl (70-99(Fasting)) H 04/29/24 02:06 Calcium 9.3 mg/dl (8.6-10.3) 04/29/24 02:06 Total Bilirubin 1.5 mg/dl (0.2-1.0) H 04/29/24 02:06 AST 19 U/L (13-39) 04/29/24 02:06 ALT 21 U/L (7-52) 04/29/24 02:06 Alkaline Phosphatase 57 U/L (34-104) 04/29/24 02:06 Total Protein 7.2 gm/dl (6.0-8.3) 04/29/24 02:06 Albumin 4.8 gm/dl (3.4-5.0) 04/29/24 02:06 Globulin 2.4 gm/dl (2.5-4.0) L 04/29/24 02:06 Albumin/Globulin Ratio 2.0 (0.9-2) 04/29/24 02:06 Amylase 264 U/L (25-115) H 04/29/24 02:06 Lipase 3272 U/L (11-82) H 04/29/24 02:06 Urine Color Yellow 03 02:53 Urine Appearance Clear (Clear) 04/29/24 02:53 Urine pH 6.0 (4.5-7.5) 04/29/24 02:53 Ur Specific [place] 1.016 (1.000-1.030) 04/29/24 02:53 Urine Protein Negative (Negative) 04/29/24 02:53 Urine Glucose (UA) Negative (Negative) 04/29/24 02:53 Urine Ketones 1+ (Negative) H 04/29/24 02:53 Urine Blood Negative (Negative) 04/29/24 02:53 Urine Nitrite Negative (Negative) 04/29/24 02:53 Urine Bilirubin Negative (Negative) 04/29/24 02:53 Urine Urobilinogen Negative (Negative) 04/29/24 02:53 Ur Leukocyte Esterase 1+ (Negative) H 04/29/24 02:53 Urine WBC (Auto) 21-50 /hpf (0-5) H 04/29/24 02:53 Urine RBC (Auto) 0-2 /hpf (0-2) 04/29/24 02:53 U Hyaline Cast (Auto) 0-2 /lpf (0-2) 04/29/24 02:53 U Epithel Cells (Auto) 0-2 /hpf (0-2) 04/29/24 02:53 Urine Bacteria (Auto) None Seen (None Seen) 04/29/24 02:53 Stl C. diff Tox B Gene Positive Cdiff Gene (Neg) H 04/29/24 02:53 Ethyl Alcohol mg/dL < 10.0 mg/dl (<10.0) 04/29/24 03:16 Adenovirus (PCR) Not Detected (NotDetected) 04/29/24 02:07 B. pertussis DNA (PCR) Not Detected (NotDetected) 04/29/24 02:07 B.parapertussis DNA PCR Not Detected (NotDetected) 04/29/24 02:07 C. pneumoniae DNA (PCR) Not Detected (NotDetected) 04/29/24 02:07 Coronavirus OC43 (PCR) Not Detected (NotDetected) 04/29/24 02:07 Coronavirus HKU1 (PCR) Not Detected (NotDetected) 04/29/24 02:07 Coronavirus 229E (PCR) Not Detected (NotDetected) 04/29/24 02:07 SARS-CoV-2 (PCR) Not Detected (NotDetected) 04/29/24 02:07 Coronavirus NL63 (PCR) Not Detected (NotDetected) 04/29/24 02:07 Human Metapneumovir PCR Not Detected (NotDetected) 04/29/24 02:07 Influenza Type A (PCR) Not Detected (NotDetected) 04/29/24 02:07 Influenza Type B (PCR) Not Detected (NotDetected) 04/29/24 02:07 M. pneumoniae (PCR) Not Detected (NotDetected) 04/29/24 02:07 Parainfluenza 1 (PCR) Not Detected (NotDetected) 04/29/24 02:07 Parainfluenza 2 (PCR) Not Detected (NotDetected) 04/29/24 02:07 Parainfluenza 3 (PCR) Not Detected (NotDetected) 04/29/24 02:07 Parainfluenza 4 (PCR) Not Detected (NotDetected) 04/29/24 02:07 RSV (PCR) Not Detected (NotDetected) 04/29/24 02:07 Entero/Rhino (PCR) Not Detected (NotDetected) 04/29/24 02:07 Impressions Abdomen/Pelvis CT 04/29/24 01:52 EXAM: CT abd pelvis wo con CLINICAL HISTORY: abdominal pain, nausea, vomiting and diarrhea, history of appendectomy TECHNIQUE: CT of the abdomen and pelvis was performed, with the following protocol: axial images, and reconstructed coronal and sagittal images. No intravenous contrast was administered. One of the following dose reduction techniques was utilized for this exam: Automated exposure control, adjustment of the mA and/or kV according to patient size, and use of iterative reconstruction. COMPARISON: None. FINDINGS: Abdomen: Liver: Normal in size, and density. No focal lesions, cysts, or masses were identified. Gallbladder and Biliary System: The gallbladder is normal in size and shape. No wall thickening, pericholecystic fluid, or gallstones were identified. Pancreas: Pancreatic head, body, and tail are visualized and appear normal in size and density. No pancreatic masses or calcifications were noted. Spleen: Normal in size, shape, and density. No splenic lesions or masses were identified. Kidneys and Adrenal Glands: Both kidneys are normal in size, shape, and position. No renal calculi or hydronephrosis. Adrenal glands are unremarkable. Pelvis: Urinary Bladder: Normal in contour and wall thickness. Prostate appears unremarkable. Peritoneal and Retroperitoneal Structures: No free fluid or abnormal fluid collections were identified within the abdomen or pelvis. Subcentimetric non-specific mesenteric nodes. Mild mesenteric haziness and congestion near the site of possible intussusception. Bowel: Suggestion of telescoping of a proximal jejunal bowel loop in adjacent Jejunum in right upper quadrant anterior to right kidney with borderline distension of fluid filled proximal small bowel loops in abdomen, measuring 27 mm in maximum thickness.Possibility of intussusception. Fat attenuation is seen in the intussusceptum, this could be due to mesentery versus small lipoma. Post appendicectomy status. Bones and Soft Tissues: Unremarkable. IMPRESSION: 1. Suspicion of a short length transient intussusception in proximal jejunum (limited details due to lack of oral contrast). Advise clinical correlation and follow up. 2. Mild mesenteric haziness and congestion near this site 3. No evidence of bowel obstruction. Electronically signed by Jose Luis Barnhart 04-29-2024 03:46 AM
[2024-04-29 04:19] LABS: Adenovirus F 40/41 PCR Not Detected (NotDetected); Astrovirus PCR Not Detected (NotDetected); Campylobacter PCR Not Detected (NotDetected); Cryptosporidium PCR Not Detected (NotDetected); Cyclospora cayetanensis PCR Not Detected (NotDetected); Entamoeba histolytica PCR Not Detected (NotDetected); Enteroaggregative E.coli(EAEC) Not Detected (NotDetected); Enteropathogenic E.coli (EPEC) Not Detected (NotDetected); Enterotoxigenic E.coli (ETEC) Not Detected (NotDetected); Giardia lamblia PCR Not Detected (NotDetected); Norovirus GI/GII PCR Not Detected (NotDetected); Plesiomonas shigelloides PCR Not Detected (NotDetected); Rotavirus A PCR Not Detected (NotDetected); Salmonella PCR Not Detected (NotDetected); Sapovirus PCR Not Detected (NotDetected); Shiga-like Toxin E.coli (STEC) Not Detected (NotDetected); Shigella/Enteroinvasive E.coli Not Detected (NotDetected); Vibrio cholerae PCR Not Detected (NotDetected); Vibrio species PCR Not Detected (NotDetected); Yersinia enterocolitica PCR Not Detected (NotDetected)
[2024-04-29 04:26] LABS: Magnesium 1.8 mg/dl (1.7-2.4)
[2024-04-29] MEDS: THIAMINE HCL 100 MG in SYRINGE 9 ML IV STA (04:32)
[2024-04-29 04:36] LABS: Cdiff Toxin A+B Negative Cdiff Toxin (Negative)
--- NOTE | 2024-04-29 04:41 | Surgery Consultation ---
Date of Consultation April 29, 2024 Assessment & Plan (1) Abdominal pain: Patient is a 23-year-old male who presented to the emergency room with complaints of epigastric abdominal pain, nausea, vomiting, and diarrhea. Upon workup he was found to have an elevated Lipase of 3272, elevated Tbili of 1.5, and + for C.diff. CT imaging was also concerning for possible intussusception. On exam the patient is tender in the epigastric region, however there are no signs of acute abdomen that would warrant emergent surgical intervention at this time. Could consider repeating CT imaging with oral contrast to further evaluate for intussusception. Patient also does have a history of previous alcohol use however states he hasn't drank any alcohol since last week during mid-terms, could also consider possible gallbladder US to r/o gallstone pancreatitis. For now will plan to treat patient conservatively, keep NPO, IV hydration, and pain control. Trend LFTs and Lipase levels. Will discuss patient case with attending surgeon, Dr. Mota, and final surgical recommendations to follow. as above. already feeling better. he does have a history of heavy drinking in the past but currently almost never drinks. pancreatitis likely secondary to gallbladder sludge/small stones. CT with oral contrast not revealing intussusseption. pt requesting lap barbara this admission secondary to college schedule. I think as long as his lipase is coming down tomorrow we could proceed with lap barbara tomorrow. if not considerably improved will likely push back lap barbara to next week. (2) Pancreatitis: History of Present Illness Reason for Consultation: possible intussusception History of Present Illness The patient is a 23-year-old male who presented to the emergency department early this morning with complaints of abdominal pain, nausea, vomiting, and diarrhea. The patient states he has some abdominal pain and mild nausea the day prior however last evening had gotten worse and had woken him up from his sleep with severe diarrhea and vomiting. He states his abdominal pain is located all in his epigastric region and he also endorses subjective fevers and chills. The patient also recently has been taking a course of oral antibiotics for a sinus infection. Patient does have a previous history of alcohol abuse, however he states since starting a new relationship he drinks only on occasion and the last time was during mid-terms. The patient was worked up and WBC was 10.8, T.bili of 1.5 and Lipase of 3272. He was also +for C.diff. CT imaging was obtained and there was also concern for possible intussusception. The patient was seen and evaluated early this morning at bedside. He is resting comfortably during my exam, VSS, and states his pain is currently well co ntrolled with pain medication but does illicit tenderness in his epigastric region on exam. The patient does have a surgical history of an open appendectomy as a child. Allergies Allergy/AdvReac Type Severity Reaction Status Date / Time metoclopramide Allergy Mild Unknown Verified 04/29/24 06:20 Home Medications Medication Instructions Recorded Confirmed Type benzonatate 200 mg capsule 200 mg PO TID PRN Cough 04/29/24 04/29/24 History buspirone 5 mg tablet 5 mg PO QID PRN Anxiety 04/29/24 04/29/24 History dextroamphetamine-amphetamine ER 10 mg PO QAM 04/29/24 04/29/24 History 10 mg 24hr capsule,extend release escitalopram oxalate 20 mg tablet 20 mg PO QAM 04/29/24 04/29/24 History sumatriptan succinate 25 mg tablet 25 mg PO UD PRN Migraine Headache 04/29/24 04/29/24 History Patient History Surgical History History of appendectomy Family History Mother No problems noted. 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 Feels Safe at Home: Yes Safety Concerns: Feels Safe At This Time Diet: regular caffeine: No Dental Care, Regularly: No Physical Activity Frequency: 3-4 Times per Week Seatbelt Use: always Sunscreen Use: Yes Assistive Devices: None Review of Systems Constitutional: as per Subjective / HPI Respiratory: no cough, no dyspnea and no wheezing Cardiovascular: no chest pain, no palpitations and no syncope Gastrointestinal: + abdominal pain, + nausea, + vomiting a nd + diarrhea/loose stools Genitourinary: no dysuria, no urinary hesitancy or no hematuria Physical Exam Constitutional: WD/WN, vitals as above Respiratory: normal respiratory effort, lungs clear to auscultation Cardiovascular: RRR, no murmur, no edema Gastrointestinal (Abdomen): Abdomen soft, nondistended, +TTP in the epigastric region. No rebound, guarding, or peritonitis. Skin: no rashes, warm and dry Results & Data Vital Signs (Past 12 Hours) Vital Signs Temp Pulse Resp BP Pulse Ox O2 Del Method 04/29/24 04:12 95 H 22 123/69 97 Room Air 04/29/24 03:42 84 17 128/81 96 Room Air 04/29/24 03:03 99 H 17 132/84 96 Room Air 04/29/24 03:00 91 H 18 96 Room Air 04/29/24 02:39 96 H 04/29/24 01:51 Room Air 04/29/24 01:43 36.7 C 113 H 20 121/80 97 Room Air 04/29/24 01:38 Room Air Diagnostic Findings EXAM: CT abd pelvis wo con CLINICAL HISTORY: abdominal pain, nausea, vomiting and diarrhea, history of appendectomy TECHNIQUE: CT of the abdomen and pelvis was performed, with the following protocol: axial images, and reconstructed coronal and sagittal images. No intravenous contrast was administered. One of the following dose reduction techniques was utilized for this exam: Automated exposure control, adjustment of the mA and/or kV according to patient size, and use of iterative reconstruction. COMPARISON: None. FINDINGS: Abdomen: Liver: Normal in size, and density. No focal lesions, cysts, or masses were identified. Gallbladder and Biliary System: The gallbladder is normal in size and shape. No wall thickening, pericholecystic fluid, or gallstones were identified. Pancreas: Pancreatic head, body, and tail are visualized and appear normal in size and density. No pancreatic masses or calcifications were noted. Spleen: Normal in size, shape, and density. No splenic lesions or masses were identified. Kidneys and Adrenal Glands: Both kidneys are normal in size, shape, and position. No renal calculi or hydronephrosis. Adrenal glands are unremarkable. Pelvis: Urinary Bladder: Normal in contour and wall thickness. Prostate appears unremarkable. Peritoneal and Retroperitoneal Structures: No free fluid or abnormal fluid collections were identified within the abdomen or pelvis. Subcentimetric non-specific mesenteric nodes. Mild mesenteric haziness and congestion near the site of possible intussusception. Bowel: Suggestion of telescoping of a proximal jejunal bowel loop in adjacent Jejunum in right upper quadrant anterior to right kidney with borderline distension of fluid filled proximal small bowel loops in abdomen, measuring 27 mm in maximum thickness.Possibility of intussusception. Fat attenuation is seen in the intussusceptum, this could be due to mesentery versus small lipoma. Post appendicectomy status. Bones and Soft Tissues: Unremarkable. IMPRESSION: 1. Suspicion of a short length transient intussusception in proximal jejunum (limited details due to lack of oral contrast). Advise clinical correlation and follow up. 2. Mild mesenteric haziness and congestion near this site 3. No evidence of bowel obstruction. PG Care Time/CCT Total # of Minutes Spent Total Time Spent with Patient: Total time spent is greater than 50% in coordination of care (as documented) at patient's floor/unit and/or counseling patient: [place] [address] Office/OBS Consult Lvl 1 Patient Type New Medical Decision Making Straight Forward Diagnoses Abdominal pain R10.9 Pancreatitis K85.90
[2024-04-29] MEDS ORDERED: PROMETHAZINE 6.25 MG/50.25 ML BAG IV PRN (05:02)
[2024-04-29] MEDS ORDERED: ACETAMINOPHEN 325 MG TAB PO PRN (05:02)
[2024-04-29] MEDS ORDERED: busPIRone 5 MG TAB PO PRN (05:03)
[2024-04-29] MEDS ORDERED: BENZONATATE 100 MG CAPSULE PO PRN (05:03)
[2024-04-29] MEDS: CHERRY SYRUP 5 ML UDP PO SCH (05:32)
[2024-04-29] MEDS: VANCOMYCIN HCL 125 MG/2.5ML SOLN PO SCH (05:33)
[2024-04-29] MEDS: LACTATED RINGER'S 1,000 ML IV ONE (05:33)
--- NOTE | 2024-04-29 05:55 | XRay Report ---
EXAM: XR chest 1V portable CLINICAL HISTORY: sob TECHNIQUE: Radiograph of chest was acquired. 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 The lungs are clear and well-expanded with no pulmonary infiltrate or pleural effusion. The cardiomediastinal silhouette is within normal limits. No acute osseous abnormality. IMPRESSION: 1. Prominent bronchivascula shadows. 2. No acute cardiopulmonary disease. 3. No interval change. Electronically signed by Glynn Ryan 04-29-2024 05:54 AM
[2024-04-29] MEDS ORDERED: LORazepam 2 MG/1 ML VIAL IV PRN (06:16)
[2024-04-29] MEDS: oxyCODONE HCL IR 5 MG TAB (IMMEDIATE RELEASE) PO PRN (06:24)
--- NOTE | 2024-04-29 07:55 | Ultrasound Report ---
EXAM: US gallbladder CLINICAL HISTORY: abd pain TECHNIQUE: Ultrasound examination of the limited abdomen was performed. 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 FINDINGS: The pancreas is partially visualized due to overlying bowel gas. The liver is seen enlarged in size measuring 16.9 cm with normal parenchymal echogenicity. No focal lesion seen within the liver. The gallbladder: Distended with normal wall thickness measuring up to 1.6 mm. No definite stone seen within the gallbladder. Mobile sludge is noted within the gallbladder. No pericholecystic fluid seen. The common bile duct is not dilated measuring 4.1 mm. The right kidney is seen within normal limits with no hydronephrosis seen within or calculi seen within. Normal blood flow seen within the right kidney. IMPRESSION: 1. Mild hepatomegaly. 2. Distended gall bladder with sludge, no pericholecystic fluid or wall edema. 3. No interval changes. Electronically signed by Jose Luis Barnhart 04-29-2024 07:53 AM
[2024-04-29] MEDS: DEXTROAMPHETAMINE/AMPHETAMINE ER 10 MG CAP PO SCH (08:27)
[2024-04-29] MEDS: FOLIC ACID 1 MG TAB PO SCH (08:27)
[2024-04-29] MEDS: MULTIVITAMIN TAB PO SCH (08:28)
[2024-04-29] MEDS: ESCITALOPRAM OXALATE 20 MG TAB PO SCH (08:28)
[2024-04-29] MEDS: OPTIRAY 320 100ml IV ONE (08:55)
[2024-04-29 09:05] LABS: Estimated Average Glucose 105 mg/dl; Hemoglobin A1C 5.3 % (4.5-5.6)
--- NOTE | 2024-04-29 09:19 | CT Scan Report ---
CT OF THE ABDOMEN AND PELVIS WITH CONTRAST CLINICAL HISTORY: Abdominal pain. Possible intussusception. COMPARISON STUDY: CT of the abdomen and pelvis and right upper quadrant ultrasound performed earlier today. TECHNIQUE: Following IV administration of 94 mL of Optiray, axial images of the abdomen and pelvis we re obtained from the lung bases to the proximal femurs. Images were reviewed in the axial, sagittal, and coronal planes. IV contrast was administered without complication. Automated exposure control wa s utilized for the study. A dose lowering technique was utilized adhering to the principles of ALARA . Oral contrast was administered. CT DOSE: 595.89 mGy.cm FINDINGS: No pneumatosis, free air or portal venous gas is present. There is no biliary or pancreatic ductal dilatation. Liver, spleen, adrenal glands, kidneys and pancreas are unremarkable. There is no hydronephrosis. No peripancreatic or pericholecystic infiltration is present. Major vasculature is p atent. The appendix is not visualized. There is trace ascites within the right paracolic gutter. No i ntussusception is identified. There is mild wall thickening with pericolonic stranding involving the sigmoid colon and rectum. No extraluminal gas is present. There is no fluid collection. No lymphadeno tanvi is present. IMPRESSION: 1. No intussusception. No bowel obstruction. 2. Mild colorectal wall thickening with minimal pericolonic and perirectal stranding. This represents a nonspecific proctocolitis. 3. Trace ascites within the right paracolic gutter. ACT 112: Negative or not required by law. Electronically signed by: Agapito Mejia M.D. 04/29/2024 9:18 AM
--- NOTE | 2024-04-29 10:53 | Gastrointestinal Consultation ---
Date of Consultation April 29, 2024 Assessment & Plan (1) Nausea, vomiting, and diarrhea: 23 year old male who presents with nausea/vomiting and diarrhea. Repeat CTAP w/o intussusception or bowel obstruction but nonspecific proctocolitis. He is symptomatically improved and pancreas appears unremarkable on CT. Suspect viral gastroenteritis. Continue supportive measures. IVF for hydration. Antiemetics PRN. Analgesia PRN. No indication for c.diff therapy as studies suggest he is a carrier. I spent a total of 60 minutes on the date of service in review of patient's record, and previously obtained information in person and appropriate medical visit, discussion and education of plan, with patient and/or caregiver, placing orders for tests/referral/procedures as medically necessary and documentation of pertinent clinical information in patient's medical records for their visit today. Supervising Physician Co-Signing Physician Notes I personally saw and examined the patient. I have reviewed the chart and agree with the documentation provided by the EVENT STAFF MEMBER including discussion about the assessment, treatment and plan. Briefly, 23 year old male with history of anxiety, ADD and others below admitted through the ED w/ abd pain, nausea/vomiting and diarrhea - GI was asked to evaluate. Pt was seen and evlauated, chart reviewed. Suggests symptoms started with some nausea. This was mild at start. Woke up with vomiting and diarrhea and abdominal discomfort. Symptoms persisted so he sought ED care. Suggests the pain and nausea/vomiting have resolved but he has had continued diarrhea. Stools are loose, watery. Has s een some BRB w/ wiping. No black stools. CT with sludge in the gallbladder but no pancreatitis officially noted lipase is elevated and he does have midepigastric tenderness. But some nausea vomiting and diarrhea. C. difficile gene is positive but toxins negative. I suspect he has viral gastroenteritis although pancreatitis is in the differential. Supportive care as you are doing. History of Present Illness Reason for Consultation: pancreatitis Requesting Physician: Aleisha Subramanian MD Attending Physician: Aleisha Subramanian MD History of Present Illness 23 year old male with history of anxiety, ADD and others below admitted through the ED w/ abd pain, nausea/vomiting and diarrhea - GI was asked to evaluate. Pt was seen and evlauated, chart reviewed. Suggests symptoms started with some nausea. This was mild at start. Woke up with vomiting and diarrhea and abdominal discomfort. Symptoms persisted so he sought ED care. Suggests the pain and nausea/vomiting have resolved but he has had continued diarrhea. Stools are loose, watery. Has seen some BRB w/ wiping. No black stools. 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 Last used ETOH in moderation about a week ago. Previous use was about 6 months prior. Recent ABX for respiratory symptoms. Tbili 1.5 AST 19 ALT 21 ALKP 58 Lipase 3272 C.diff gene positive but toxin negative CTAP 2024: No intussusception. No bowel obstruction. Mild colorectal wall thickening with minimal pericolonic and perirectal stranding. This represents a nonspecific proctocolitis. Trace ascites within the right paracolic gutter. ABD US 2024: . Mild hepatomegaly. Distended gall bladder with sludge, no pericholecystic fluid or wall edema. No interval changes. CTAP 2024: Suspicion of a short length transient intussusception in proximal jejunum (limited details due to lack of oral contrast). Advise clinical correlation and follow up. Mild mesenteric haziness and congestion near this site No evidence of bowel obstruction. Allergies Allergy/AdvReac Type Severity Reaction Status Date / Time metoclopramide Allergy Mild Unknown Verified 04/29/24 06:20 Home Medications Medication Instructions Recorded Confirmed Type benzonatate 200 mg capsule 200 mg PO TID PRN Cough 04/29/24 04/29/24 History buspirone 5 mg tablet 5 mg PO QID PRN Anxiety 04/29/24 04/29/24 History dextroamphetamine-amphetamine ER 10 mg PO QAM 04/29/24 04/29/24 History 10 mg 24hr capsule,extend release escitalopram oxalate 20 mg tablet 20 mg PO QAM 04/29/24 04/29/24 History sumatriptan succinate 25 mg tablet 25 mg PO UD PRN Migraine Headache 04/29/24 04/29/24 History Patient History Surgical History History of appendectomy Family History Mother No problems noted. 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 Physical Exam Constitutional: WD/WN, vitals as above Respiratory: normal respiratory effort Cardiovascular: Rate/Rhythm: regular rate Gastrointestinal (Abdomen): Percussion/Palpation: abdomen soft Skin: no rashes, warm and dry Results & Data Vital Signs (Past 12 Hours) Vital Signs Temp Pulse Resp BP Pulse Ox O2 Del Method 04/29/24 08:03 98.4 F 69 16 107/61 95 04/29/24 05:48 80 16 134/79 97 04/29/24 05:15 80 17 94 Room Air 04/29/24 05:00 Room Air 04/29/24 05:00 98.4 F 04/29/24 05:00 94 H 17 135/79 95 Room Air 04/29/24 04:12 95 H 22 123/69 97 Room Air 04/29/24 03:42 84 17 128/81 96 Room Air 04/29/24 03:03 99 H 17 132/84 96 Room Air 04/29/24 03:00 91 H 18 96 Room Air 04/29/24 02:39 96 H 04/29/24 01:51 Room Air 04/29/24 01:43 98.1 F 113 H 20 121/80 97 Room Air 04/29/24 01:38 Room Air Laboratory Results 04/29/24 04/29/24 04/29/24 Range/Units 03:16 02:53 02:07 WBC (4.8-10.8) K/ul RBC (4.70-6.10) M/uL Hgb (14.0-18.0) g/dl Hct (42.0-52.0) % MCV (80.0-100.0) fL MCH (25.0-34.0) pg MCHC (32.0-36.0) g/dL RDW Std Deviation (36.4-46.3) fL RDW Coeff of [place] (11.5-14.5) % Plt Count (130-400) K/uL MPV (9.4-12.4) fL Immature Gran % (Auto) % Neut % (Auto) % Lymph % (Auto) % [place] % (Auto) % Eos % (Auto) % Baso % (Auto) % Neut # (Auto) (1.40-6.50) K/uL Lymph # (Auto) (1.20-3.40) K/uL [place] # (Auto) (0.11-0.59) K/uL Eos # (Auto) (0.00-0.50) K/uL Baso # (Auto) (0.00-0.20) K/uL Immature Gran # (Auto) (0.01-0.20) K/uL Sodium (136-145) mmol/L Potassium (3.5-5.1) mmol/L Chloride (98-107) mmol/L Carbon Dioxide (21-32) mmol/L Anion Gap (3-11) BUN (6-23) mg/dl Creatinine (0.6-1.4) mg/dl Est Cr Clr Drug Dosing ml/min eGFR BUN/Creatinine Ratio (10-20) Glucose (70-99(Fasting)) mg/dl Estimat Average Glucose 105 mg/dl Hemoglobin A1c 5.3 (4.5-5.6) % Calcium (8.6-10.3) mg/dl Magnesium (1.7-2.4) mg/dl Total Bilirubin (0.2-1.0) mg/dl AST (13-39) U/L ALT (7-52) U/L Alkaline Phosphatase (34-104) U/L Total Protein (6.0-8.3) gm/dl Albumin (3.4-5.0) gm/dl Globulin (2.5-4.0) gm/dl Albumin/Globulin Ratio (0.9-2) Amylase (25-115) U/L Lipase (11-82) U/L Urine Color Yellow Urine Appearance Clear (Clear) Urine pH 6.0 (4.5-7.5) Ur Specific [place] 1.016 (1.000-1.030) Urine Protein Negative (Negative) Urine Glucose (UA) Negative (Negative) Urine Ketones 1+ H (Negative) Urine Blood Negative (Negative) Urine Nitrite Negative (Negative) Urine Bilirubin Negative (Negative) Urine Urobilinogen Negative (Negative) Ur Leukocyte Esterase 1+ H (Negative) Urine WBC (Auto) 21-50 H (0-5) /hpf Urine RBC (Auto) 0-2 (0-2) /hpf U Hyaline Cast (Auto) 0-2 (0-2) /lpf U Epithel Cells (Auto) 0-2 (0-2) /hpf Urine Bacteria (Auto) None Seen (None Seen) Stl C. cayetanensis PCR Not Detected (NotDetected) Stool Rotavirus A PCR Not Detected (NotDetected) Stl Adenov F 40/41 PCR Not Detected (NotDetected) Stool Astrovirus (PCR) Not Detected (NotDetected) Stool Campylobacter PCR Not Detected (NotDetected) Stl C. diff Tox B Gene Positive Cdiff Gene H (Neg) Stl C.difficile Tox A&B Negative Cdiff Toxin (Negative) Stool Cryptosporidium PCR Not Detected (NotDetected) Stl E.coli Shiga Tox PCR Not Detected (NotDetected) Stl Enterotoxigenic E PCR Not Detected (NotDetected) Stool EPEC (PCR) Not Detected (NotDetected) Stool EAEC (PCR) Not Detected (NotDetected) Stl E. histolytica PCR Not Detected (NotDetected) Stool Giardia Lamblia PCR Not Detected (NotDetected) Stool Salmonella PCR Not Detected (NotDetected) Stool Sapovirus (PCR) Not Detected (NotDetected) Stl P. shigelloides PCR Not Detected (NotDetected) Stl Shigella/EIEC PCR Not Detected (NotDetected) St Y.enterocolitica PCR Not Detected (NotDetected) Stool Vibrio (PCR) Not Detected (NotDetected) Stl Vibrio cholerae PCR Not Detected (NotDetected) Stl Norovirus GI/GII PCR Not Detected (NotDetected) Ethyl Alcohol mg/dL < 10.0 (<10.0) mg/dl Adenovirus (PCR) Not Detected (NotDetected) B. pertussis DNA (PCR) Not Detected (NotDetected) B.parapertussis DNA PCR Not Detected (NotDetected) C. pneumoniae DNA (PCR) Not Detected (NotDetected) Coronavirus OC43 (PCR) Not Detected (NotDetected) Coronavirus HKU1 (PCR) Not Detected (NotDetected) Coronavirus 229E (PCR) Not Detected (NotDetected) SARS-CoV-2 (PCR) Not Detected (NotDetected) Coronavirus NL63 (PCR) Not Detected (NotDetected) Human Metapneumovir PCR Not Detected (NotDetected) Influenza Type A (PCR) Not Detected (NotDetected) Influenza Type B (PCR) Not Detected (NotDetected) M. pneumoniae (PCR) Not Detected (NotDetected) Parainfluenza 1 (PCR) Not Detected (NotDetected) Parainfluenza 2 (PCR) Not Detected (NotDetected) Parainfluenza 3 (PCR) Not Detected (NotDetected) Parainfluenza 4 (PCR) Not Detected (NotDetected) RSV (PCR) Not Detected (NotDetected) Entero/Rhino (PCR) Not Detected (NotDetected) 04/29/24 Range/Units 02:06 WBC 10.84 H (4.8-10.8) K/ul RBC 4.95 (4.70-6.10) M/uL Hgb 14.0 (14.0-18.0) g/dl Hct 40.6 L (42.0-52.0) % MCV 82.0 (80.0-100.0) fL MCH 28.3 (25.0-34.0) pg MCHC 34.5 (32.0-36.0) g/dL RDW Std Deviation 38.5 (36.4-46.3) fL RDW Coeff of Crist[place] 12.9 (11.5-14.5) % Plt Count 216 (130-400) K/uL MPV 11.0 (9.4-12.4) fL Immature Gran % (Auto) 0.3 % Neut % (Auto) 77.5 % Lymph % (Auto) 14.1 % [place] % (Auto) 7.0 % Eos % (Auto) 0.6 % Baso % (Auto) 0.5 % Neut # (Auto) 8.41 H (1.40-6.50) K/uL Lymph # (Auto) 1.53 (1.20-3.40) K/uL [place] # (Auto) 0.76 H (0.11-0.59) K/uL Eos # (Auto) 0.06 (0.00-0.50) K/uL Baso # (Auto) 0.05 (0.00-0.20) K/uL Immature Gran # (Auto) 0.03 (0.01-0.20) K/uL Sodium 136 (136-145) mmol/L Potassium 3.5 (3.5-5.1) mmol/L Chloride 103 (98-107) mmol/L Carbon Dioxide 24 (21-32) mmol/L Anion Gap 9 (3-11) BUN 16 (6-23) mg/dl Creatinine 0.84 (0.6-1.4) mg/dl Est Cr Clr Drug Dosing 129.0 ml/min eGFR 126.45 BUN/Creatinine Ratio 19.0 (10-20) Glucose 127 H (70-99(Fasting)) mg/dl Estimat Average Glucose mg/dl Hemoglobin A1c (4.5-5.6) % Calcium 9.3 (8.6-10.3) mg/dl Magnesium 1.8 (1.7-2.4) mg/dl Total Bilirubin 1.5 H (0.2-1.0) mg/dl AST 19 (13-39) U/L ALT 21 (7-52) U/L Alkaline Phosphatase 57 (34-104) U/L Total Protein 7.2 (6.0-8.3) gm/dl Albumin 4.8 (3.4-5.0) gm/dl Globulin 2.4 L (2.5-4.0) gm/dl Albumin/Globulin Ratio 2.0 (0.9-2) Amylase 264 H (25-115) U/L Lipase 3272 H (11-82) U/L Urine Color Urine Appearance (Clear) Urine pH (4.5-7.5) Ur Specific [place] (1.000-1.030) Urine Protein (Negative) Urine Glucose (UA) (Negative) Urine Ketones (Negative) Urine Blood (Negative) Urine Nitrite (Negative) Urine Bilirubin (Negative) Urine Urobilinogen (Negative) Ur Leukocyte Esterase (Negative) Urine WBC (Auto) (0-5) /hpf Urine RBC (Auto) (0-2) /hpf U Hyaline Cast (Auto) (0-2) /lpf U Epithel Cells (Auto) (0-2) /hpf Urine Bacteria (Auto) (None Seen) Stl C. cayetanensis PCR (NotDetected) Stool Rotavirus A PCR (NotDetected) Stl Adenov F 40/41 PCR (NotDetected) Stool Astrovirus (PCR) (NotDetected) Stool Campylobacter PCR (NotDetected) Stl C. diff Tox B Gene (Neg) Stl C.difficile Tox A&B (Negative) Stool Cryptosporidium PCR (NotDetected) Stl E.coli Shiga Tox PCR (NotDetected) Stl Enterotoxigenic E PCR (NotDetected) Stool EPEC (PCR) (NotDetected) Stool EAEC (PCR) (NotDetected) Stl E. histolytica PCR (NotDetected) Stool Giardia Lamblia PCR (NotDetected) Stool Salmonella PCR (NotDetected) Stool Sapovirus (PCR) (NotDetected) Stl P. shigelloides PCR (NotDetected) Stl Shigella/EIEC PCR (NotDetected) St Y.enterocolitica PCR (NotDetected) Stool Vibrio (PCR) (NotDetected) Stl Vibrio cholerae PCR (NotDetected) Stl Norovirus GI/GII PCR (NotDetected) Ethyl Alcohol mg/dL (<10.0) mg/dl Adenovirus (PCR) (NotDetected) B. pertussis DNA (PCR) (NotDetected) B.parapertussis DNA PCR (NotDetected) C. pneumoniae DNA (PCR) (NotDetected) Coronavirus OC43 (PCR) (NotDetected) Coronavirus HKU1 (PCR) (NotDetected) Coronavirus 229E (PCR) (NotDetected) SARS-CoV-2 (PCR) (NotDetected) Coronavirus NL63 (PCR) (NotDetected) Human Metapneumovir PCR (NotDetected) Influenza Type A (PCR) (NotDetected) Influenza Type B (PCR) (NotDetected) M. pneumoniae (PCR) (NotDetected) Parainfluenza 1 (PCR) (NotDetected) Parainfluenza 2 (PCR) (NotDetected) Parainfluenza 3 (PCR) (NotDetected) Parainfluenza 4 (PCR) (NotDetected) RSV (PCR) (NotDetected) Entero/Rhino (PCR) (NotDetected) PG Care Time/CCT Total # of Minutes Spent Total Time Spent with Patient: Total time spent is greater than 50% in coordination of care (as documented) at patient's floor/unit and/or counseling patient: Coding Level of Care Code 39089 IN/OBS CONSULT LVL 4,60M Diagnoses Nausea, vomiting, and diarrhea R11.2; R19.7
--- NOTE | 2024-04-29 11:08 | Communication Note ---
Date of Service: April 29, 2024 Evaluated at bedside Endorses pain under control at time of exam Exam with mild epigastric tenderness to palpation Labs revealed lipase 3272, amylase 264 #Acute pancreatitis #Acute cholecystitis suspected pancreatitis 2/2 biliary sludge per surgery CT w/ contrast negative for intussusception Continue IVF and prn analgesia/antiemitics #C diff gene #Gastroenteritis No initiation for abx at this time discontinue vanco po gene positive, toxin negative--consider PO ppx if antibiotics utilized
[2024-04-29] MEDS: LACTATED RINGER'S 1,000 ML IV SCH (11:53)
[2024-04-29] MEDS: KETOROLAC TROMETHAMINE 15 MG/ML VIAL IV PRN (12:59)
[2024-04-29] MEDS: MoRPHine SULFATE 2 MG/ML CARP IV PRN (14:25)
[2024-04-30 08:18] LABS: Basophils # (auto) 0.04 K/uL (0.00-0.20); Basophils % (auto) 0.4 %; Eosinophils % (auto) 1.1 %; Hematocrit (blood only) 37.7 % (42.0-52.0); Hemoglobin 12.8 g/dl (14.0-18.0); Immature Granulocytes # (auto) 0.05 K/uL (0.01-0.20); Immature Granulocytes % (auto) 0.5 %; Lymphocytes # (auto) 1.93 K/uL (1.20-3.40); Mean Corpuscular Hemoglobin 28.6 pg (25.0-34.0); Mean Corpuscular Volume 84.2 fL (80.0-100.0); Mean Platelet Volume 10.9 fL (9.4-12.4); Neutrophils # (auto) 5.97 K/uL (1.40-6.50); Platelet Count 196 K/uL (130-400); RDW Coefficient of Variation 13.2 % (11.5-14.5); RDW Standard Deviation 40.5 fL (36.4-46.3); Red Blood Count 4.48 M/uL (4.70-6.10); White Blood Count 9.19 K/ul (4.8-10.8)
[2024-04-30 08:42] LABS: BUN Creatinine Ratio 9.1 (10-20); Calcium 8.4 mg/dl (8.6-10.3); Creatinine Clr Calc Pharmacy 140.7 ml/min; Potassium 3.7 mmol/L (3.5-5.1)
[2024-04-30 09:02] LABS: Albumin Level 3.9 gm/dl (3.4-5.0); Bilirubin,Total 1.3 mg/dl (0.2-1.0); Total Protein 5.9 gm/dl (6.0-8.3)
--- NOTE | 2024-04-30 09:08 | Gastroenterology Progress Note ---
Date of Service April 30, 2024 Assessment & Plan (1) Nausea, vomiting, and diarrhea: Plan: 23 year old male who presents with nausea/vomiting and diarrhea. Repeat CTAP w/o intussusception or bowel obstruction but nonspecific proctocolitis. He is symptomatically improving and pancreas appears unremarkable on CT. Suspect viral gastroenteritis vs mild pancreatitis. This AM he is clinically improving. Continue supportive measures. IVF for hydration. Antiemetics PRN. Analgesia PRN. No indication for c.diff therapy as studies suggest he is a carrier. Diet per general surgery pending their surgical plans. Recall GI as needed. I spent a total of 40 minutes on the date of service in review of patient's record, and previously obtained information in person and appropriate medical visit, discussion and education of plan, with patient and/or caregiver, placing orders for tests/referral/procedures as medically necessary and documentation of pertinent clinical information in patient's medical records for their visit today. Admission and Anticipated Discharge Date Admission Date: April 29, 2024 Supervising Physician Co-Signing Physician Notes I personally saw and examined the patient. I have reviewed the chart and agree with the documentation provided by the MUSIC ORCHESTRATOR including discussion about the asse ssment, treatment and plan. Briefly, patient still with some midepigastric pain and as per surgery will go for cholecystectomy. Lipase is improving and his LFTs are normal. GI has no further recommendations we will sign off. Subjective Pt was seen and evaluated, chart reviewed. NPO for general surgery evaluation, consideration of CCY. Notes that he is feeling better. He reports he has some mild upper abd pain this AM but actually thinks this is related to hunger. No further nausea/vomiting. Has had ongoing diarrhea but this is improving in frequency, volume and consistency. Review of Systems Review of Systems: All other findings negative except as noted in HPI. Physical Exam Constitutional: WD/WN, vitals as above Respiratory: normal respiratory effort Cardiovascular: Rate/Rhythm: regular rate Gastrointestinal (Abdomen): + mild epigastric discomfort w/ palpatio n Skin: no rashes, warm and dry Results & Data Results & Data Vital Signs (Past 12 Hours) Vital Signs Temp Pulse Resp BP Pulse Ox 04/30/24 07:57 97.9 F 89 18 135/70 98 Laboratory Results 04/30/24 Range/Units 07:47 WBC 9.19 (4.8-10.8) K/ul RBC 4.48 L (4.70-6.10) M/uL Hgb 12.8 L (14.0-18.0) g/dl Hct 37.7 L (42.0-52.0) % MCV 84.2 (80.0-100.0) fL MCH 28.6 (25.0-34.0) pg MCHC 34.0 (32.0-36.0) g/dL RDW Std Deviation 40.5 (36.4-46.3) fL RDW Coeff of Cristo 13.2 (11.5-14.5) % Plt Count 196 (130-400) K/uL MPV 10.9 (9.4-12.4) fL Immature Gran % (Auto) 0.5 % Neut % (Auto) 65.0 % Lymph % (Auto) 21.0 % [place] % (Auto) 12.0 % Eos % (Auto) 1.1 % Baso % (Auto) 0.4 % Neut # (Auto) 5.97 (1.40-6.50) K/uL Lymph # (Auto) 1.93 (1.20-3.40) K/uL [place] # (Auto) 1.10 H (0.11-0.59) K/uL Eos # (Auto) 0.10 (0.00-0.50) K/uL Baso # (Auto) 0.04 (0.00-0.20) K/uL Immature Gran # (Auto) 0.05 (0.01-0.20) K/uL Sodium 138 (136-145) mmol/L Potassium 3.7 (3.5-5.1) mmol/L Chloride 104 (98-107) mmol/L Carbon Dioxide 26 (21-32) mmol/L Anion Gap 8 (3-11) BUN 7 (6-23) mg/dl Creatinine 0.77 (0.6-1.4) mg/dl Est Cr Clr Drug Dosing 140.7 ml/min eGFR 129.82 BUN/Creatinine Ratio 9.1 L (10-20) Glucose 72 (70-99(Fasting)) mg/dl Calcium 8.4 L (8.6-10.3) mg/dl Total Bilirubin 1.3 H (0.2-1.0) mg/dl AST 16 (13-39) U/L ALT 15 (7-52) U/L Alkaline Phosphatase 41 (34-104) U/L Total Protein 5.9 L (6.0-8.3) gm/dl Albumin 3.9 (3.4-5.0) gm/dl Globulin 2.0 L (2.5-4.0) gm/dl Albumin/Globulin Ratio 2.0 (0.9-2) Lipase 761 H (11-82) U/L PG Care Time/CCT Total # of Minutes Spent Total Time Spent with Patient: Total time spent is greater than 50% in coordination of care (as documented) at patient's floor/unit and/or counseling patient: Coding Level of Care Code 28089 SUB INP/OBS CARE 2/35MIN Diagnoses Nausea, vomiting, and diarrhea R11.2; R19.7
--- NOTE | 2024-04-30 10:59 | Anesthesiology Consultation ---
Date of Service April 30, 2024 Assessment & Plan (1) Encounter for pre-operative examination: Chart Review Chart Review: Acceptable Risk for Surgery History Surgery Operation Date: 04/30/24 13:35 Proposed Procedures p Laparoscopic Cholecystectomy - Britton Mota, Height/Weight Height: 5 ft 7 in Weight: 67.8 kg Allergies Allergy/AdvReac Type Severity Reaction Status Date / Time metoclopramide Allergy Mild Unknown Verified 04/29/24 06:20 Medications Home Medications Medication Instructions Recorded Confirmed Last Taken benzonatate 200 mg capsule 200 mg PO TID PRN Cough 04/29/24 04/29/24 Unknown buspirone 5 mg tablet 5 mg PO QID PRN Anxiety 04/29/24 04/29/24 Unknown dextroamphetamine-amphetamine ER 10 mg PO QAM 04/29/24 04/29/24 Unknown 10 mg 24hr capsule,extend release escitalopram oxalate 20 mg tablet 20 mg PO QAM 04/29/24 04/29/24 Unknown sumatriptan succinate 25 mg tablet 25 mg PO UD PRN Migraine Headache 04/29/24 04/29/24 Unknown Active Medications Generic Name Dose Route Start Last Admin Trade Name Freq PRN Reason Stop Dose Admin Amphetamine/Dextroamphetamine 10 mg 04/29/24 09:00 04/29/24 08:27 Dextroamphetamine/Amphetamine Er 10 Mg Cap PO 05/13/24 08:59 10 mg QAM SARAHI Administration Escitalopram Oxalate 20 mg 04/29/24 09:00 04/29/24 08:28 Escitalopram Oxalate 20 Mg Tab PO 05/29/24 08:59 20 mg QAM SARAHI Administration Folic Acid 1 mg 04/29/24 09:00 04/29/24 08:27 Folic Acid 1 Mg Tab PO 05/29/24 08:59 1 mg QAM SARAHI Administration Ketorolac Tromethamine 15 mg 04/29/24 05:04 04/29/24 12:59 Ketorolac Tromethamine 15 Mg/Ml Vial IV 05/04/24 05:03 15 mg Q6H PRN Administration Pain Multivitamins 1 tab 04/29/24 09:00 04/29/24 08:28 Multivitamin Tab PO 05/29/24 08:59 1 tab QAM SARAHI Administration Past Medical History Medical History (Updated 04/30/24 @ 10:59 by Nakul Silverman MD) Enteritis due to Clostridium difficile Pancreatitis Anxiety ADD (attention deficit disorder) Benign paroxysmal positional nystagmus Past Family History Family History Mother No problems noted. Father Diabetes Hypertension Glaucoma Past Surgical History Surgical History History of appendectomy Social History Smoking Status: Former smoker Do You Dip or Chew Tobacco: No Hx Alcohol Use: Yes Alcohol type: beer alcohol intake frequency: a few times a month Alcohol Intake Frequency Comment: former heavy drinker, pt has not drank since last saturday when he had "1-2" Hx Substance Use: No substance use type: does not use Physical Exam Vital Signs Last Vital Signs Temp 36.6 C 04/30/24 07:57 Pulse 89 04/30/24 07:57 Resp 18 04/30/24 07:57 BP 135/70 04/30/24 07:57 Pulse Ox 98 04/30/24 07:57 O2 Del Method Room Air 04/29/24 11:56 Testing Laboratory Results 04/30/24 07:47 04/30/24 07:47 Hemoglobin A1c 5.3 % (4.5-5.6) 04/29/24 03:16 Urine Color Yellow 04/29/24 02:53 Urine Appearance Clear (Clear) 04/29/24 02:53 Urine pH 6.0 (4.5-7.5) 04/29/24 02:53 Ur Specific [place] 1.016 (1.000-1.030) 04/29/24 02:53 Urine Protein Negative (Negative) 04/29/24 02:53 Urine Glucose (UA) Negative (Negative) 04/29/24 02:53 Urine Ketones 1+ (Negative) H 04/29/24 02:53 Urine Nitrite Negative (Negative) 04/29/24 02:53 Ur Leukocyte Esterase 1+ (Negative) H 04/29/24 02:53 Urine WBC (Auto) 21-50 /hpf (0-5) H 04/29/24 02:53 Urine RBC (Auto) 0-2 /hpf (0-2) 04/29/24 02:53 U Hyaline Cast (Auto) 0-2 /lpf (0-2) 04/29/24 02:53 U Epithel Cells (Auto) 0-2 /hpf (0-2) 04/29/24 02:53 Urine Bacteria (Auto) None Seen (None Seen) 04/29/24 02:53
[2024-04-30] MEDS ORDERED: ONDANSETRON INJ 2 MG/ML 2 ML VIAL ONE (11:38)
[2024-04-30] MEDS ORDERED: ROCURONIUM BROMIDE 10 MG/ML 5 ML VIAL IV ONE (11:38)
[2024-04-30] MEDS ORDERED: PROPOFOL IV EMULSION 10 MG/ML 20 ML VIAL IV ONE (11:38)
[2024-04-30] MEDS ORDERED: DEXAMETHASONE SOD INJ 4 MG/ML VIAL ONE (11:38)
[2024-04-30] MEDS ORDERED: LIDOCAINE 2% 2 ML VIAL/AMP(20MG/ML) INFIL ONE (11:38)
--- NOTE | 2024-04-30 11:59 | History & Physical Bridge Note ---
Date of Service April 30, 2024 History & Physical Bridge Note I have examined the patient, reviewed the History & Physical and in the interval since the performance of the History & Physical I have noted the following changes of clinical significance: lipase came down dramatically so will proceed today with lap barbara. discussed risks ( bleeding/infection/injury to another organ/injury or leak of bile duct/dvt/pe etc..). questions answered. pt agreeable.
[2024-04-30] MEDS ORDERED: fentaNYL citrate PF 100 MCG/2 ML VIAL ONE (12:41)
[2024-04-30] MEDS ORDERED: MIDAZOLAM HCL 1 MG/ML 2ML VIAL ONE (12:41)
--- NOTE | 2024-04-30 12:47 | Hospitalist Progress Note ---
Date of Service April 30, 2024 Assessment & Plan (1) Abdominal pain: Plan: Mr. Forrest is a 23 yo gentleman with history of ADHD and mood d/o admitted for pancreatitis, thought to be secondary to biliary sludge. Lipase downtrending. Plan for lap barbara today. #Acute pancreatitis #Acute cholecystitis suspected pancreatitis 2/2 biliary sludge per surgery CT w/ contrast negative for intussusception Continue IVF and prn analgesia/antiemitics plan for lap barbara today with slow diet advancement post op and early ambulation #anemia likely secondary to volume no source of bleed noted CTM #C diff gene #Gastroenteritis No initiation for abx at this time discontinue vanco po gene positive, toxin negative--consider PO ppx if antibiotics utilized #Hyperglycemia rule out DM A1C 5.3% #ADHD, mood disorder, at baseline resume home DVT SCDs Dispo contingent on post op recovery Admission and Anticipated Discharge Date Admission Date: April 29, 2024 Subjective NAEO Reports appetite returning however with some central epigastric burning still present no nausea or vomiting plan for barbara today Physical Exam Constitutional: WD/WN, vitals as above Respiratory: normal respiratory effort, lungs clear to auscultation Cardiovascular: RRR, no murmur, no edema Gastrointestinal (Abdomen): still with some mild epigastric tenderness Results & Data Results & Data Vital Signs (Past 12 Hours) Vital Signs Temp Pulse Resp BP Pulse Ox 04/30/24 07:57 36.6 C 89 18 135/70 98 Laboratory Results Short CBC 04/30/24 Range/Units 07:47 WBC 9.19 (4.8-10.8) K/ul Hgb 12.8 L (14.0-18.0) g/dl Hct 37.7 L (42.0-52.0) % Plt Count 196 (130-400) K/uL BMP 04/30/24 07:47 Sodium 138 Potassium 3.7 Chloride 104 Carbon Dioxide 26 BUN 7 Creatinine 0.77 Glucose 72 Calcium 8.4 L Liver Function 04/30/24 Range/Units 07:47 Total Bilirubin 1.3 H (0.2-1.0) mg/dl AST 16 (13-39) U/L ALT 15 (7-52) U/L Alkaline Phosphatase 41 (34-104) U/L Albumin 3.9 (3.4-5.0) gm/dl Medications Administered Home Medications Medication Instructions Recorded Confirmed Last Taken benzonatate 200 mg capsule 200 mg PO TID PRN Cough 04/29/24 04/29/24 Unknown buspirone 5 mg tablet 5 mg PO QID PRN Anxiety 04/29/24 04/29/24 Unknown dextroamphetamine-amphetamine ER 10 mg PO QAM 04/29/24 04/29/24 Unknown 10 mg 24hr capsule,extend release escitalopram oxalate 20 mg tablet 20 mg PO QAM 04/29/24 04/29/24 Unknown sumatriptan succinate 25 mg tablet 25 mg PO UD PRN Migraine Headache 04/29/24 04/29/24 Unknown Active Medications Generic Name Dose Route Start Last Admin Trade Name Freq PRN Reason Stop Dose Admin Amphetamine/Dextroamphetamine 10 mg 04/29/24 09:00 04/29/24 08:27 Dextroamphetamine/Amphetamine Er 10 Mg Cap PO 05/13/24 08:59 10 mg QAM SARAHI Administration Escitalopram Oxalate 20 mg 04/29/24 09:00 04/29/24 08:28 Escitalopram Oxalate 20 Mg Tab PO 05/29/24 08:59 20 mg QAM SARAHI Administration Folic Acid 1 mg 04/29/24 09:00 04/29/24 08:27 Folic Acid 1 Mg Tab PO 05/29/24 08:59 1 mg QAM SARAHI Administration Ketorolac Tromethamine 15 mg 04/29/24 05:04 04/29/24 12:59 Ketorolac Tromethamine 15 Mg/Ml Vial IV 05/04/24 05:03 15 mg Q6H PRN Administration Pain Multivitamins 1 tab 04/29/24 09:00 04/29/24 08:28 Multivitamin Tab PO 05/29/24 08:59 1 tab QAM SARAHI Administration
[2024-04-30] MEDS ORDERED: PROMETHAZINE HCL 6.25 MG in SODIUM CHLORIDE 0.9% 50 ML IV PRN (13:24)
[2024-04-30] MEDS ORDERED: ATROPINE SULFATE 0.1 MG/ML 10ML SYR IV PRN (13:24)
[2024-04-30] MEDS ORDERED: KETOROLAC 30 MG/ML VIAL IV PRN (13:24)
[2024-04-30] MEDS: ceFAZolin 2000MG 2,000 MG/15 ML SYR IV ONE (14:01)
[2024-04-30] MEDS: BUPIVACAINE/EPINEPHRINE 0.5% MPF 1:200,000 30 ML VIAL ONE (14:27)
[2024-04-30] MEDS ORDERED: SUGAMMADEX SODIUM 200 MG/2 ML VIAL IV ONE (14:29)
[2024-04-30] MEDS ORDERED: KETOROLAC 30 MG/ML VIAL ONE (14:41)
--- NOTE | 2024-04-30 14:57 | Operative Report ---
PG Post Operative Report Pre & Post Diagnosis Operation Date: 04/30/24 13:35 Pre-Op Diagnosis: Gallstone pancreatitis. Post-Op Diagnosis: Gallstone pancreatitis. I identified the patient and participated in the time-out.: Yes Procedure Operation Date: 04/30/24 13:35 Actual Procedures p Laparoscopic Cholecystectomy(Not Applicable) - Britton Mota DO Surgeon Britton Mota DO Claims Adjustor rajan Richard Estimated Blood Loss 10 Findings Consistent with Post-Op Diagnosis Specimens gallbladder Description of Procedure After informed consent was obtained the patient was taken to the operating room and placed in the supine position. After successful intubation the abdomen was sterilely prepped and draped in usual fashion. A periumbilical incision was made with an 11 blade scalpel and carried down through the soft tissue using electrocautery. The anterior rectus fascia was opened using electrocautery and 2 #0 Vicryl stay sutures were placed. The peritoneum was elevated with hemostats and incised under direct vision using Metzenbaum scissors. A finger sweep was performed and a 12 mm Brandt trocar was placed. The abdomen was insufflated to 18 mmHg. The laparoscope was inserted and the abdomen was examined in 360. No gross abnormalities were identified. A subxiphoid 5 mm port and 2 right upper quadrant 5 mm ports were placed under direct vision. The patient was placed in a reverse Trendelenburg position and slightly airplaned to the left. The gallbladder was grasped and elevated superiorly and laterally. A [place] dissector was used to take down adhesions around the neck of the gallbladder. The cystic duct was identified and skeletonized. It was clipped twice proximally and once distally and transected using a laparoscopic scissor. In similar fashion the cystic artery was identified and skeletonized clipped and divided. The gallbladder was removed from the gallbladder fossa with electro cautery. A small hole was made in the gallbladder during this process releasing bile in the right upper quadrant. This was immediately suctioned and irrigated out until all irrigant was clear. It was placed into an Endo Catch bag. Thorough irrigation was performed. At the end of the procedure there was adequate hemostasis and no evidence of any bile leaks. A final look around the abdomen showed no other abnormalities. The gallbladder and trochars were all removed and the abdomen was desufflated. The fascia of the camera port was closed using 0 Vicryl in a [id number] fashion. All the wounds were irrigated and closed using 4-0 Monocryl. Marcaine was injected around them for postoperative analgesia and skin glue used as a dressing. The patient was awakened, extubated and transferred to recovery in stable condition. My MAIL CLERK manufacturing assistant was present throughout the entire case... helped with prepping the patient. With exposure for trocar placement, as well as retracted the ga llbladder throughout the case and also assisted with wound closure and dressing placement. I attest to the content of the Intraoperative Record and any orders documented therein. Any exceptions are noted below.
[2024-04-30] MEDS: fentaNYL citrate PF 100 MCG/2 ML VIAL IV PRN (15:12)
[2024-04-30] MEDS: HYDROmorphone INJ 1 MG/ML SYRINGE IV PRN (15:35)
--- NOTE | 2024-04-30 15:44 | Anesthesiology Progress Note ---
Date of Service April 30, 2024 Anesthesia Post Procedure Vital Signs Vital Signs: Temp Pulse Pulse Resp BP BP Pulse Ox 04/30/24 15:35 102 H 18 127/70 94 04/30/24 15:25 103 H 17 120/77 97 04/30/24 15:15 104 H 21 139/76 99 04/30/24 15:07 36.4 C L 105 H 17 136/82 99 04/30/24 12:43 04/30/24 07:57 36.6 C 89 18 135/70 98 04/29/24 18:57 36.8 C 94 H 16 124/76 96 O2 Del Method O2 Flow Rate 04/30/24 15:35 Room Air 04/30/24 15:25 Oxymask 3 04/30/24 15:15 Oxymask 7 04/30/24 15:07 Oxymask 7 04/30/24 12:43 Room Air 04/30/24 07:57 04/29/24 18:57 Pain Intensity Abdomen: Pain Intensity: 6 Transfer of Care Handoff Completed per policy Notes Mental Status: alert / awake / arousable Patient Amnestic to Procedure: Yes Nausea / Vomiting: adequately controlled Pain: adequately controlled Airway Patency, RR, SpO2: stable & adequate BP & HR: stable & adequate Hydration State: stable & adequate Anesthetic Complications: no major complications apparent
[2024-04-30] MEDS: ceFAZolin 2,000 MG/15 ML IV PUSH IV ONE (16:43)
[2024-04-30] MEDS: HYDROmorphone INJ 1 MG/ML SYRINGE ONE (16:43)
[2024-04-30] MEDS: THIAMINE HCL 100 MG TAB PO SCH (16:52)
[2024-04-30] MEDS: oxyCODONE HCL IR 5 MG TAB (IMMEDIATE RELEASE) PO PRN (19:29)
[2024-04-30] MEDS: MoRPHine SULFATE 2 MG/ML CARP IV PRN (20:36)
[2024-05-01 07:44] LABS: Hematocrit (blood only) 39.6 % (42.0-52.0); Hemoglobin 13.5 g/dl (14.0-18.0); Mean Corpuscular Hemoglobin 28.1 pg (25.0-34.0); Mean Corpuscular Hgb Conc 34.1 g/dL (32.0-36.0); Mean Corpuscular Volume 82.5 fL (80.0-100.0); Mean Platelet Volume 11.1 fL (9.4-12.4); Platelet Count 269 K/uL (130-400); RDW Coefficient of Variation 13.2 % (11.5-14.5); RDW Standard Deviation 39.8 fL (36.4-46.3); White Blood Count 12.93 K/ul (4.8-10.8)
[2024-05-01 07:52] LABS: Albumin Globulin Ratio 1.8 (0.9-2); Albumin Level 4.5 gm/dl (3.4-5.0); BUN Creatinine Ratio 8.1 (10-20); Bilirubin,Total 1.7 mg/dl (0.2-1.0); Calcium 9.3 mg/dl (8.6-10.3); Globulin 2.5 gm/dl (2.5-4.0); Magnesium 2.1 mg/dl (1.7-2.4)
[2024-05-01] MEDS: PSYLLIUM or GUAR GUM FIBER 4GM PACKET PO SCH (09:41)
[2024-05-01] MEDS: CHOLESTYRAMINE LIGHT 4 GM PKT PO SCH (10:13)
--- NOTE | 2024-05-01 10:30 | Surgery Progress Note ---
Date of Service May 01, 2024 Assessment & Plan (1) Acute pancreatitis: Plan: Doing well status post laparoscopic cholecystectomy. However his LFTs all bumped today so he will not be able to be discharged. Will need to repeat LFTs tomorrow. If they start trending down tomorrow he could be discharged then Dr. Dickens covering for weekend (2) Gallstone pancreatitis: Admission and Anticipated Discharge Date Admission Date: April 29, 2024 Subjective Doing well. No major complaints other than some incisional soreness Physical Exam Physical Exam: Alert no acute distress All of his incisions look good Results & Data Vital Signs (Past 12 Hours) Vital Signs Temp Pulse Resp BP Pulse Ox O2 Del Method 05/01/24 07:45 36.7 C 64 18 115/71 95 Room Air 05/01/24 04:33 36.8 C 70 16 130/68 93 Room Air 04/30/24 22:49 36.4 C L 64 16 115/71 95 Room Air PG Care Time/CCT Total # of Minutes Spent Total Time Spent with Patient: Total time spent is greater than 50% in coordination of care (as documented) at patient's floor/unit and/or counseling patient: Coding Level of Care Code 25630 Post Operative Follow-Up Diagnoses Acute pancreatitis K85.90 Gallstone pancreatitis K85.10
--- NOTE | 2024-05-01 10:36 | Hospitalist Progress Note ---
Date of Service May 01, 2024 Assessment & Plan (1) Abdominal pain: Plan: Mr. Forrest is a 23 yo gentleman with history of ADHD and mood d/o admitted for pancreatitis, thought to be secondary to biliary sludge. Lipase downtrending; however, now with increased LFTs s/p lap barbara. #Acute pancreatitis #Acute cholecystitis suspected pancreatitis 2/2 biliary sludge per surgery CT w/ contrast negative for intussusception s/p lap barbara 05/01 transaminitis noted post op Repat cmp in am, dispo when stable per surg #anemia likely secondary to volume no source of bleed noted CTM #C diff gene #Gastroenteritis No initiation for abx at this time gene positive, toxin negative Determination made by surg to resume vanco x 10 days #Hyperglycemia rule out DM A1C 5.3% #ADHD, mood disorder, at baseline resume home DVT SCDs Dispo contingent on post op recovery (2) Gallstone pancreatitis: Admission and Anticipated Discharge Date Admission Date: April 29, 2024 Subjective NAEO reports eating well overall and with expected postop discomfort managed with prns Physical Exam Constitutional: WD/WN, vitals as above Respiratory: normal respiratory effort, lungs clear to auscultation Cardiovascular: RRR, no murmur, no edema Results & Data Results & Data Vital Signs (Past 12 Hours) Vital Signs Temp Pulse Resp BP Pulse Ox O2 Del Method 05/01/24 07:45 36.7 C 64 18 115/71 95 Room Air 05/01/24 04:33 36.8 C 70 16 130/68 93 Room Air 04/30/24 22:49 36.4 C L 64 16 115/71 95 Room Air Laboratory Results Short CBC 05/01/24 Range/Units 07:05 WBC 12.93 H (4.8-10.8) K/ul Hgb 13.5 L (14.0-18.0) g/dl Hct 39.6 L (42.0-52.0) % Plt Count 269 (130-400) K/uL BMP 05/01/24 07:05 Sodium 139 Potassium 4.0 Chloride 102 Carbon Dioxide 30 BUN 7 Creatinine 0.86 Glucose 147 H Calcium 9.3 Liver Function 05/01/24 Range/Units 07:05 Total Bilirubin 1.7 H (0.2-1.0) mg/dl AST 324 H (13-39) U/L ALT 281 H (7-52) U/L Alkaline Phosphatase 139 H D (34-104) U/L Albumin 4.5 (3.4-5.0) gm/dl Medications Administered Home Medications Medication Instructions Recorded Confirmed Last Taken benzonatate 200 mg capsule 200 mg PO TID PRN Cough 04/29/24 04/29/24 Unknown buspirone 5 mg tablet 5 mg PO QID PRN Anxiety 04/29/24 04/29/24 Unknown dextroamphetamine-amphetamine ER 10 mg PO QAM 04/29/24 04/29/24 Unknown 10 mg 24hr capsule,extend release escitalopram oxalate 20 mg tablet 20 mg PO QAM 04/29/24 04/29/24 Unknown sumatriptan succinate 25 mg tablet 25 mg PO UD PRN Migraine Headache 04/29/24 04/29/24 Unknown oxycodone 5 mg tablet 5 - 10 mg (1 - 2 x 5 mg) PO 05/01/24 Unknown .[id number] PRN pain, for initial therapy, max 6 tabs per day #10 tabs Active Medications Generic Name Dose Route Start Last Admin Trade Name Freq PRN Reason Stop Dose Admin Amphetamine/Dextroamphetamine 10 mg 04/29/24 09:00 05/01/24 09:10 Dextroamphetamine/Amphetamine Er 10 Mg Cap PO 05/13/24 08:59 10 mg QAM SARAHI Administration [place] Syrup 5 ml 05/01/24 12:00 05/01/24 11:03 [place] Syrup 5 Ml Udp PO 05/11/24 11:59 5 ml Q6 SARAHI Administration Cholestyramine Resin 4 gm 05/01/24 10:00 05/01/24 10:13 Cholestyramine Light 4 Gm Pkt PO 05/31/24 09:59 4 gm BID@1000,2200 SARAHI Administration Escitalopram Oxalate 20 mg 04/29/24 09:00 05/01/24 09:41 Escitalopram Oxalate 20 Mg Tab PO 05/29/24 08:59 20 mg QAM SARAHI Administration Folic Acid 1 mg 04/29/24 09:00 05/01/24 09:15 Folic Acid 1 Mg Tab PO 05/29/24 08:59 1 mg QAM SARAHI Administration Ketorolac Tromethamine 15 mg 04/29/24 05:04 04/29/24 12:59 Ketorolac Tromethamine 15 Mg/Ml Vial IV 05/04/24 05:03 15 mg Q6H PRN Administration Pain Morphine Sulfate 2 mg 04/30/24 09:28 04/30/24 20:36 Morphine Sulfate 2 Mg/Ml Carp IV 05/13/24 10:33 2 mg Q4H PRN Administration Severe Pain (Scale 7, 8, 9,10) Multivitamins 1 tab 04/29/24 09:00 05/01/24 09:15 Multivitamin Tab PO 05/29/24 08:59 1 tab QAM SARAHI Administration Oxycodone HCl 5 mg 04/30/24 16:39 05/01/24 16:04 Oxycodone Hcl Ir 5 Mg Tab (Immediate Release) PO 05/14/24 16:38 5 mg Q4H PRN Administration Moderate Pain (Scale 4, 5, 6) Oxycodone HCl 10 mg 04/30/24 16:39 05/01/24 06:00 Oxycodone Hcl Ir 5 Mg Tab (Immediate Release) PO 05/14/24 16:38 10 mg Q4H PRN Administration Severe Pain (Scale 7, 8, 9,10) Psyllium Hydrophilic Mucilloid 4 gm 05/01/24 09:00 05/01/24 09:41 Psyllium Or Guar Gum Fiber 4gm Packet PO 05/31/24 08:59 4 gm QAM SARAHI Administration Thiamine HCl 100 mg 04/30/24 09:00 05/01/24 09:15 Thiamine Hcl 100 Mg Tab PO 05/30/24 08:59 100 mg QAM SARAHI Administration Vancomycin HCl 125 mg 05/01/24 12:00 05/01/24 11:03 Vancomycin Hcl 125 Mg/2.5ml Soln PO 05/11/24 11:59 125 mg Q6 SARAHI Administration
[2024-05-01] MEDS: VANCOMYCIN HCL 125 MG/2.5ML SOLN PO SCH (11:03)
[2024-05-01] MEDS: CHERRY SYRUP 5 ML UDP PO SCH (11:03)
[2024-05-01] MEDS: oxyCODONE HCL IR 5 MG TAB (IMMEDIATE RELEASE) PO PRN (16:04)
[2024-05-01 23:22] LABS: Cdiff Antigen Positive
[2024-05-02] MEDS: MoRPHine SULFATE 4 MG/ML 1 ML CARP\\VIAL IV PRN (01:44)
--- NOTE | 2024-05-02 06:56 | Communication Note ---
Date of Service: May 02, 2024 reconsult, increased LFTs post Lap cholecystetomy. Leave on clears pending labs. May require ERCP. ? no stones in GB on path
[2024-05-02 07:22] LABS: Basophils # (auto) 0.03 K/uL (0.00-0.20); Basophils % (auto) 0.3 %; Eosinophils # (auto) 0.21 K/uL (0.00-0.50); Eosinophils % (auto) 2.4 %; Hematocrit (blood only) 36.2 % (42.0-52.0); Hemoglobin 12.2 g/dl (14.0-18.0); Immature Granulocytes # (auto) 0.02 K/uL (0.01-0.20); Immature Granulocytes % (auto) 0.2 %; Lymphocytes # (auto) 2.42 K/uL (1.20-3.40); Lymphocytes % (auto) 27.7 %; Mean Corpuscular Hemoglobin 28.4 pg (25.0-34.0); Mean Corpuscular Hgb Conc 33.7 g/dL (32.0-36.0); Mean Corpuscular Volume 84.4 fL (80.0-100.0); Mean Platelet Volume 10.9 fL (9.4-12.4); Monocytes # (auto) 1.19 K/uL (0.11-0.59); Monocytes % (auto) 13.6 %; Neutrophils # (auto) 4.88 K/uL (1.40-6.50); Neutrophils % (auto) 55.8 %; Platelet Count 235 K/uL (130-400); RDW Coefficient of Variation 13.4 % (11.5-14.5); RDW Standard Deviation 41.7 fL (36.4-46.3); Red Blood Count 4.29 M/uL (4.70-6.10); White Blood Count 8.75 K/ul (4.8-10.8)
[2024-05-02 07:46] VITALS: RESP 16; TEMP 98.2; O2SAT 93
[2024-05-02 07:53] LABS: Albumin Globulin Ratio 1.7 (0.9-2); Albumin Level 3.8 gm/dl (3.4-5.0); Bilirubin,Total 0.8 mg/dl (0.2-1.0); Calcium 8.5 mg/dl (8.6-10.3); Creatinine Clr Calc Pharmacy 117.8 ml/min; Globulin 2.2 gm/dl (2.5-4.0); Potassium 3.8 mmol/L (3.5-5.1)
--- NOTE | 2024-05-02 09:12 | Discharge Summary ---
Discharge Summary Date of Service May 02, 2024 Principal Dx & Hospital Course #1 = Principal Diagnosis (1) Abdominal pain: Mr. Forrest is a 23 yo gentleman with history of ADHD and mood d/o admitted for pancreatitis, thought to be secondary to biliary sludge. Lipase downtrended appropriately. Patient s/p lap barbara on 04/30 however, with increased LFTs s/p lap barbara. Repeat labs with downtrend and US did not reveal signs of biliary leak On day of discharge, patient eating well and with no acute concerns. #Acute pancreatitis #Acute cholecystitis suspected pancreatitis 2/2 biliary sludge per surgery CT w/ contrast negative for intussusception s/p lap barbara 04/30 US no biliary leak, downtrend in labs #anemia likely secondary to volume no source of bleed noted CTM #C diff gene #Gastroenteritis No initiation for abx at this time gene positive, toxin negative Determination made by surg to resume vanco x 10 days #Hyperglycemia rule out DM A1C 5.3% #ADHD, mood disorder, at baseline resume home meds (2) Gallstone pancreatitis: Notes For Next Care Provider f/u in office with dr mota in 1-2 weeks Medication Changes From Visit Vancomycin x 8 more days Admission HPI Per Admitting Provider History obtained from patient and records. Medical history significant for ADHD, mood disorder, migraine, past tobacco/alcohol abuse. Last week, patient noted sinus congestion symptoms without fever, chills. Outpatient Augmentin course prescribed for possible sinusitis. Yesterday, patient noted achy epigastric pain associated with nausea, bilious emesis. Short of breath from pain. Denies chest pain. Loose stools with some blood streaking. Last EtOH intake was over the weekend for his graduation celebration. Denies binging. Patient consulted ER for worsening symptoms. 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 Admission Exam Per Admitting Provider GENERAL: Comfortable, pleasant, slightly anxious, no respiratory distress SKIN: Normal color, warm HEENT: [place] palpebral conjunctivae, no ptosis, dry buccal mucosa NECK : Supple, no tenderness CHEST : CTA, no tenderness HEART : RRR, no obvious murmurs ABDOMEN: Some distention, epigastric tenderness EXTREMITIES : No LE swelling/tenderness, palpable pulses, no other conspicuous deformities noted NEUROLOGIC : Coherent, no facial asymmetry, no other gross focality Discharge Exam Constitutional WD/WN, vitals as above Respiratory normal respiratory effort, lungs clear to auscultation Cardiovascular RRR, no murmur, no edema Gastrointestinal (Abdomen) incisions with out signs of superimposed infection, well approximated with steristrips Updated Medication List Medication Instructions Recorded Confirmed Type benzonatate 200 mg capsule 200 mg PO TID PRN Cough 04/29/24 04/29/24 History buspirone 5 mg tablet 5 mg PO QID PRN Anxiety 04/29/24 04/29/24 History dextroamphetamine-amphetamine ER 10 mg PO QAM 04/29/24 04/29/24 History 10 mg 24hr capsule,extend release escitalopram oxalate 20 mg tablet 20 mg PO QAM 04/29/24 04/29/24 History sumatriptan succinate 25 mg tablet 25 mg PO UD PRN Migraine Headache 04/29/24 04/29/24 History acetaminophen 325 mg tablet 650 mg (2 x 325 mg) PO Q6H PRN 05/02/24 Rx (Tylenol) pain #30 tabs ibuprofen 200 mg tablet 200 - 400 mg (1 - 2 x 200 mg) PO 05/02/24 Rx Q6H PRN pain #30 tabs oxycodone 5 mg tablet 5 - 10 mg (1 - 2 x 5 mg) PO 05/02/24 Rx .[id number] PRN pain, for initial therapy, max 6 tabs per day #15 tabs vancomycin 125 mg capsule 125 mg PO Q6H 8 days #32 caps 05/02/24 Rx Hospital Stay Data Consultations 04/29/24 03:56 ED Decision to Admit Stat 04/29/24 05:02 Consult Gastroenterology Routine 04/29/24 05:04 Consult General Surgery Routine Procedures Performed Operation Date: 04/30/24 13:35 Actual Procedures p Laparoscopic Cholecystectomy(Not Applicable) - Britton Mota, Diagnostic Imagining Performed 04/29/24 01:52 CT abd pelvis wo con Stat 04/29/24 05:29 CT abd pelvis oral and IV con Stat US gallbladder Stat Pending Results Patient Have Any Pending Studies at Discharge: Yes Discharge Instructions Given to Patient (Per Discharging Provider) SPECIAL CARE INSTRUCTIONS: * You have skin glue over your incisions called dermabond. you may shower with this on. It will tend to dissolve and fall off within a couple weeks. Do not pick at the skin glue * You may shower 05/02 . NO soaking in pools or baths for 2 weeks * No lifting greater than 10lbs. No strenuous exercise until cleared by surgeon. Light walking is accepted. * No driving while taking narcotic pain medication; wait at least 3 days * No drinking alcohol while taking narcotic pain medication * May use Ibuprofen/Tylenol over the counter for pain. Take as per manufacturers instructions and do not exceed suggested doses. You may alternate taking tylenol and ibuprofen along with the narcotic for longer lasting pain control. Do not exceed 3grams of Tylenol per 24 hours * Expect some swelling and bruising. * Diet- you may resume your regular diet Call your doctor if: * Temperature above 101 degrees, nausea/vomiting, fever/chills * Pain not relieved by pain medicine ordered * There is increased drainage or redness from any incision * You have any unanswered questions or concerns [phone]. FOLLOW UP VISIT: If not already scheduled, please call the office for a follow-up visit. Office Total Time Total Time Spent Total Time Spent (In Minutes): 35
--- NOTE | 2024-05-02 09:12 | Gastroenterology Progress Note ---
Date of Service May 02, 2024 Assessment & Plan (1) Elevated liver enzymes: Plan: Blip in liver enzymes now normalizing, significant improvement overnight. Patient feeling well. I think he can be discharged after surgery evaluation. I would follow his LFTs as an outpatient make sure they normalize. Patient should return if there is abdominal pain fevers chills nausea vomiting or jaundice. He has an appointment with his doctor on Saturday. LFTs should be done prior to that visit. (2) Gallstone pancreatitis: Plan: Lipase normalizing. Pancreas appears normal on imaging. Admission and Anticipated Discharge Date Admission Date: April 29, 2024 Subjective Elevated liver enzymes Elevated liver ends postcholecystectomy. They have dramatically improved overnight. Patient is feeling well tolerating p.o. States he is passing gas. No abdominal pain other than incisional discomfort. Abdomen benign bowel sounds present. Wants to go home. Review of Systems Review of Systems: Denies fevers chills pain other than incisional pain. Physical Exam Physical Exam: Abdomen bowel sounds present. Relatively benign abdomen. Incisions dry. Results & Data Results & Data Vital Signs (Past 12 Hours) Vital Signs Temp Pulse Resp BP Pulse Ox O2 Del Method 05/02/24 07:46 36.8 C 78 16 112/62 93 Room Air PG Care Time/CCT Total # of Minutes Spent Total Time Spent with Patient: Total time spent is greater than 50% in coordination of care (as documented) at patient's floor/unit and/or counseling patient: Coding Level of Care Code 13646 SUB INP/OBS CARE 03/14MIN Diagnoses Elevated liver enzymes R74.8 Gallstone pancreatitis K85.10
--- NOTE | 2024-05-02 11:10 | Surgery Progress Note ---
Date of Service May 02, 2024 Assessment & Plan (1) S/P laparoscopic cholecystectomy: Plan: POD#2 lap barbara vitals stable. WBC 8.2. LFTs are downtrending, Tb 0.8, AST 11( 324), ALT 198 (281), [id number], lipase 87 pt feels well, does express incisional discomfort that is no worse no better otherwise tolerating diet, no emesis. + BM/flatus Incisions c/d/i, abdomen soft, expected po incisional discomfort to palpation as LFTs downtrending and pt is stable we are okay with discharge to home today pt requested scripts for Tylenol and ibuprofen, but these can be purchased over the counter if he has any troubles. in addition po oxycodone sent prn pain d/c instructions reviewed, f/u in office with dr carrera in 1-2 weeks Admission and Anticipated Discharge Date Admission Date: April 29, 2024 Subjective Patient feeling well overall. Does report some incisional pain. Otherwise tolerating diet, was backed down to clears in the event he needed an ERCP but LFTs downtrending so holding off on further procedures. Mild nausea, but tolerable. Passing gas and BMs. Physical Exam Physical Exam: awake/alert, no distress Gastrointestinal (Abdomen): Inspection/Auscultation: + abdominal surgical incision (c/d/i with skin glue, no signs of infection); abdomen not distended Percussion/Palpation: + abdomen tender (expected po incisional discomfort to palpation) and abdomen soft Results & Data Vital Signs (Past 12 Hours) Vital Signs Temp Pulse Resp BP Pulse Ox O2 Del Method 05/02/24 07:46 98.2 F 78 16 112/62 93 Room Air PG Care Time/CCT Total # of Minutes Spent Total Time Spent with Patient: Total time spent is greater than 50% in coordination of care (as documented) at patient's floor/unit and/or counseling patient: Coding Level of Care Code 51072 Post Operative Follow-Up Diagnoses S/P laparoscopic cholecystectomy Z90.49
--- NOTE | 2024-05-02 12:28 | Ultrasound Report ---
HISTORY: Status postcholecystectomy 2 days ago with elevated LFTs. TECHNIQUE: Right upper quadrant ultrasound COMPARISON: CT the abdomen pelvis dated 04/29/2024. FINDINGS: Mildly increased liver echogenicity. Liver is otherwise unremarkable. Pancreas is obscured by bowel gas shadowing. Visible right kidney is unremarkable with no hydronephrosis. Gallbladder is not demonstrated and reportedly surgically absent. The common bile duct is normal in caliber measuring 0.4 cm in diameter. IMPRESSION: 1. No acute findings. 2. Mild hepatic steatosis. 3. Status postcholecystectomy. 4. Additional findings and limitations as detailed above. Electronically signed by Sreekanth Baptiste 05-02-2024 12:28 PM
[2024-05-02 14:21] VITALS: BP 114/72; PULSE 93
== END 2024-05-02 14:27 | disposition home or self-care (01) | DRG 418 ==
LOC: ED 01:37 → EDINP 04:05 → INTOOBSV 04:05 → 3N 04:19